=== PATIENT | female | born 1955 | race African-American/Black ===

== ENCOUNTER 2018-01-11 18:10 | Inpatient (IN) | payer OTHER ==
[~2018-01-11] VITALS: Ht 163.8 cm; Wt 127.0 kg
[2018-01-11] MEDS ORDERED: ASPIRIN 81 MG CHEW TAB PO ONE (18:30)
[2018-01-11 19:10] LABS: INR 1.3; PROTHROMBIN TIME 15.2 seconds (11.9-14.5)
[2018-01-11 19:11] LABS: PARTIAL THROMBOPLASTIN TIME 32.2 seconds (23.8-35.5)
[2018-01-11 19:19] LABS: BASOPHILS % 0.4 % (0.0-1.0); EOSINOPHILS # (AUTO) 0.6 (0.0-0.4); EOSINOPHILS % 5.4 % (0.0-6.0); HEMATOCRIT 40.6 % (34.2-44.1); HEMOGLOBIN 12.8 g/dL (12.0-16.0); LYMPHOCYTES # (AUTO) 1.7 (1.0-3.2); LYMPHOCYTES % 16.5 % (18.0-39.1); MEAN CORPUSCULAR HGB CONC 31.5 g/dL (31-35); MEAN CORPUSCULAR VOLUME 95.3 fL (81-99); MONOCYTES # (AUTO) 0.8 (0.2-0.8); MONOCYTES % 7.7 % (4.4-11.3); NEUTROPHILS # (AUTO) 7.4 (2.1-6.9); NEUTROPHILS % 69.7 % (38.7-80.0); PLATELET COUNT 261 x10e3/uL (140-360); RED BLOOD COUNT 4.26 x10e6/uL (3.6-5.1); RED CELL DISTRIBUTION WIDTH 12.6 % (11.7-14.4)
[2018-01-11 19:23] LABS: ALBUMIN 3.1 g/dL (3.5-5.0); ALBUMIN/GLOBULIN RATIO 0.7 (0.8-2.0); ANION GAP 12.5 mmol/L (8-16); CALCIUM 9.2 mg/dL (8.4-10.2); CREATININE, SERUM 1.49 mg/dL (0.57-1.11); POTASSIUM 3.5 mmol/L (3.5-5.1)
--- NOTE | 2018-01-11 19:26 | Diagnostic Imaging Report ---
EXAMINATION: CHEST 2 VIEWS INDICATION: CHF exacerbation and respiratory infection COMPARISON: None FINDINGS: PA and lateral views TUBES and LINES: None. LUNGS: Lungs are well inflated. Pulmonary vascular markings are prominent and indistinct. The right and left main pulmonary arteries are enlarged suggestive of pulmonary artery hypertension. Linear airspace opacity in the lower lobe is seen only on lateral image. This may represent atelectasis or infiltrate. PLEURA: No pleural effusion or pneumothorax. HEART AND MEDIASTINUM: The heart is enlarged. There are scattered calcifications in the aorta. BONES AND SOFT TISSUES: No focal osseous lesions. Soft tissues are unremarkable. UPPER ABDOMEN: No free air under the diaphragm. IMPRESSION: Cardiomegaly and pulmonary basilar congestion. A component of pulmonary artery hypertension is suspected. Small focus of lower lobe atelectasis or infiltrate. Signed by: Dr. Jessica Bradford MD on 01/11/2018 7:22 PM
[2018-01-11 19:31] LABS: CREATINE KINASE MB 1.3 ng/mL (0-5.0)
[2018-01-11 20:03] LABS: BILIRUBIN,URINE NEGATIVE (NEGATIVE); CLARITY,URINE HAZY (CLEAR); COLOR,URINE YELLOW (YELLOW); KETONES,URINE NEGATIVE (NEGATIVE); LEUKOCYTE ESTERASE ,URINE TRACE (NEGATIVE); NITRITE,URINE NEGATIVE (NEGATIVE); PROTEIN,URINE DIPSTICK 2+ (NEGATIVE); URINE UROBILINOGEN 0.2 mg/dL (0.2 - 1)
[2018-01-11 20:10] LABS: BACTERIA,URINE MANY /HPF; EPITHELIAL CELLS,URINE MANY /LPF; TRANSITIONAL EPI CELLS,URINE FEW
[2018-01-11] MEDS ORDERED: FUROSEMIDE INJ 10 MG/ML 4 ML VIAL IV NR (20:15)
[2018-01-11] MEDS ORDERED: DEXTROSE 50% SYRINGE 50 ML IV PRN ×2 (20:15)
[2018-01-11] MEDS ORDERED: SODIUM CHLORIDE FLUSH 10 ML SYR INJ PRN (20:15)
[2018-01-11 20:25] LABS: ABG PCO2 42 mmHg (41-51); ABG PH 7.47 (7.31-7.41); ABG PO2 61 mmHg (80-105)
[2018-01-11 20:26] LABS: ABG HCO3 30 mmol/L (23-28)
[2018-01-11] MEDS ORDERED: INSULIN REGULAR, HUMAN 100 UNIT/1 ML 3ML VIAL SQ SCH (21:00)
[2018-01-11] MEDS: INSULIN REGULAR, HUMAN 100 UNIT/1 ML 3ML VIAL SQ SCH (21:00)
[2018-01-11 21:15] VITALS: BP 139/63
[2018-01-11 21:30] VITALS: BP 139/63
[2018-01-11] MEDS: ALBUTEROL/IPRATROPIUM 3 ML NEB NEB SCH (23:15)
[2018-01-12] VITALS (9 sets, daily range): BP systolic 134–181; BP diastolic 61–86
[2018-01-12] MEDS ORDERED: ATORVASTATIN CA20 MG PO (00:49)
[2018-01-12] MEDS ORDERED: GLIMEPIRIDE2 MG PO (00:49)
[2018-01-12] MEDS ORDERED: ASPIRIN EC81 MG PO (00:49)
[2018-01-12] MEDS ORDERED: DEMADEX10 MG PO (00:49)
[2018-01-12] MEDS ORDERED: METFORMIN HCL500 MG PO (00:49)
[2018-01-12] MEDS ORDERED: HYDRALAZINE HCL25 MG PO (00:49)
[2018-01-12] MEDS ORDERED: LISINOPRIL10 MG PO (00:49)
[2018-01-12] MEDS ORDERED: PROCARDIA XL30 MG PO (00:49)
[2018-01-12 06:26] LABS: CREATINE KINASE MB 1.3 ng/mL (0-5.0)
[2018-01-12] MEDS: INSULIN REGULAR, HUMAN 100 UNIT/1 ML 3ML VIAL SQ SCH ×4 (07:30→20:37)
[2018-01-12] MEDS: ALBUTEROL/IPRATROPIUM 3 ML NEB NEB SCH (07:33)
[2018-01-12] MEDS ORDERED: FUROSEMIDE INJ 10 MG/ML 4 ML VIAL IV SCH (09:00)
[2018-01-12 10:53] LABS: ANION GAP 13.4 mmol/L (8-16); CALCIUM 8.9 mg/dL (8.4-10.2); CREATININE, SERUM 1.39 mg/dL (0.57-1.11); MAGNESIUM 1.7 MG/DL (1.3-2.1); POTASSIUM 3.4 mmol/L (3.5-5.1)
[2018-01-12] MEDS ORDERED: POTASSIUM CHLORIDE 20 MEQ TAB CR PO STA (11:01)
[2018-01-12] MEDS ORDERED: FUROSEMIDE INJ 10 MG/ML 4 ML VIAL IV ONE (11:15)
[2018-01-12] MEDS: ALBUTEROL/IPRATROPIUM 3 ML NEB NEB PRN ×2 (12:09→19:30)
[2018-01-12] MEDS: AZITHROMYCIN 250 MG TAB PO SCH (12:26)
--- NOTE | 2018-01-12 13:35 | Consultation ---
DATE OF CONSULTATION: January 12, 2018 CARDIAC CONSULTATION REASON FOR THE CONSULTATION: Abnormal EKG, shortness of breath, chest pain. HISTORY: This is a very nice 62-year-old lady who is known with multiple medical health problems namely diabetes mellitus, hypertension, hyperlipidemia, kidney stone, mild chronic renal insufficiency, cholecystectomy, and hysterectomy. Patient works in [employer]. She is doing well. She is relatively active. She needed to see her doctor with 5 days' duration of sore throat, hoarse voice, cough with secretion and cough. She is having chest tightness and pressure. There is probably a little bit of component of pleuritic chest pain. Her EKG was abnormal and "her chest x-ray in [facility] showed congestive heart failure." She was advised to come here to be seen. Cardiac consultation is obtained. I talked to the patient, whom she denied categorically to have angina. Her symptoms are of 5 days' duration as described above. Cardiac mazariegos, she was in [place] 2 years ago. She had abnormal stress test with subsequent cardiac catheterization and "I do not have any clogged artery". Her baseline symptoms are class III shortness of breath on exertion and easy fatigability, "I run out of gas." She denied having any angina. She does have sleep apnea. She is followed in [facility] and she is supposed to see a collision worker, but "I do not have any heart disease." REVIEW OF SYSTEMS CARDIAC: As per above. PULMONARY: As per above. No hemoptysis. No recent travel. No leg swelling. No symptoms of deep venous thrombosis. GI: Occasional bloating and indigestion. : No hematuria. No dysuria. MUSCULOSKELETAL: Back pain. NEUROLOGICAL: No seizure activity. No loss of control of the body, etc. SOCIAL HISTORY: She is . She is nonsmoker. She is non-alcohol drinker. She works in [employer]. HOME MEDICATIONS: Include; 1. Lipitor 20 mg a day. 2. Hydralazine 25 mg t.i.d. 3. Lisinopril 10 mg a day. 4. Demodex 20 mg a day. 5. Amaryl 4 mg a day. 6. Metformin 500 mg twice a day. PAST MEDICAL HISTORY 1. Diabetes mellitus. 2. Hypertension. 3. Hyperlipidemia. 4. Kidney stone. 5. Cholecystectomy. 6. Hysterectomy. 7. Obesity. 8. Cardiac catheterization 2 years ago with no coronary artery disease. FAMILY HISTORY: Patient is adopted. She does have 2 healthy sons. PHYSICAL EXAMINATION VITAL SIGNS: Height of 5 feet 4 inches, weight of 189 pounds. Blood pressure 150/60, heart rate of 70, respiratory rate of 18. HEENT: Remarkable for hoarse voice. NECK: No elevation of jugular venous pulsation. Short neck. No thyromegaly. No lymphadenopathy. CHEST: Decreased lung expansion. HEART: PMI 5th left intercostal space. Normal 1st and 2nd heart sound. ABDOMEN: Soft. Obese. EXTREMITIES: No cyanosis. No clubbing. No edema. No signs of deep venous thrombosis. NEUROLOGIC: Awake, alert, and oriented. No motor deficits. LABORATORY DATA: Sodium of 139, potassium 3.5, BUN of 19, creatinine of 1.5. White blood cell count of 10.5, hemoglobin 12.8, hematocrit 40%, and platelet count of 161,000. EKG showing lateral T-wave changes. Chest x-ray showing prominent pulmonary arteries suggestive of possible pulmonary hypertension. BNP of only 461, repeat BNP of 342. IMPRESSION AND PLAN 1. Admission with cold-like illness and upper respiratory tract infection. 2. Shortness of breath, multifactorial. 3. Diabetes mellitus. 4. Hypertension. 5. Obesity. 6. Abnormal electrocardiogram. 7. Catheterization 2 years ago showed no coronary artery disease. 8. Chronic renal insufficiency, stage 3. Cardiac-mazariegos, we discussed diagnosis. We discussed the findings. Patient is not eager to have any cardiac workup as cardiac cath was normal 2 years ago and her stress test "will be abnormal". At this time point, I would concur with medical therapy. Patient seems to be on appropriate medication. We will review her echocardiogram done . Her serial cardiac enzymes are negative. Will follow patient's progression with you, and I would like to thank you for your kind referral. Job#: [id number] LOLA
--- NOTE | 2018-01-12 14:42 | Diagnostic Imaging Report ---
Examination: Single AP view of the chest. COMPARISON: 01/11/2018 INDICATION: Pulmonary edema DISCUSSION: Stable enlargement of the cardiac silhouette with unchanged prominence of the pulmonary interstitium when accounting for differences in technique. No new consolidation. No acute osseous abnormality. IMPRESSION: Stable cardiomegaly and interstitial edema relative to 01/11/2018. Signed by: Dr. Martin Coleman M.D. on 01/12/2018 2:39 PM
[2018-01-12] MEDS: NIFEDIPINE CR 30 MG TAB PO SCH (16:53)
[2018-01-12] MEDS: METFORMIN HCL 500 MG TAB PO SCH (16:54)
[2018-01-12] MEDS: ENOXAPARIN SOD INJ 40 MG/0.4 ML SYR SC SCH (16:54)
[2018-01-12] MEDS: LISINOPRIL 20 MG TAB PO SCH (16:54)
[2018-01-12] MEDS: HYDRALAZINE HCL 25 MG TAB PO SCH (20:37)
[2018-01-12] MEDS: ATORVASTATIN 20 MG TAB PO SCH (20:37)
[2018-01-12] MEDS ORDERED: MELATONIN 3 MG TAB PO PRN (21:00)
[2018-01-13] VITALS (7 sets, daily range): BP systolic 131–157; BP diastolic 60–72
[2018-01-13] MEDS ORDERED: MELATONIN3 MG PO (01:05)
[2018-01-13 05:53] LABS: BASOPHILS # (AUTO) 0.1 (0.0-0.1); BASOPHILS % 0.6 % (0.0-1.0); EOSINOPHILS # (AUTO) 0.7 (0.0-0.4); EOSINOPHILS % 7.9 % (0.0-6.0); HEMATOCRIT 40.2 % (34.2-44.1); HEMOGLOBIN 12.5 g/dL (12.0-16.0); LYMPHOCYTES # (AUTO) 1.9 (1.0-3.2); LYMPHOCYTES % 20.8 % (18.0-39.1); MEAN CORPUSCULAR HEMOGLOBIN 29.4 pg (28-32); MEAN CORPUSCULAR HGB CONC 31.1 g/dL (31-35); MEAN CORPUSCULAR VOLUME 94.6 fL (81-99); MONOCYTES # (AUTO) 0.9 (0.2-0.8); MONOCYTES % 9.6 % (4.4-11.3); NEUTROPHILS # (AUTO) 5.6 (2.1-6.9); NEUTROPHILS % 60.8 % (38.7-80.0); PLATELET COUNT 269 x10e3/uL (140-360); RED BLOOD COUNT 4.25 x10e6/uL (3.6-5.1); RED CELL DISTRIBUTION WIDTH 12.9 % (11.7-14.4)
[2018-01-13 06:15] LABS: ANION GAP 15.8 mmol/L (8-16); CALCIUM 8.7 mg/dL (8.4-10.2); CREATININE, SERUM 1.27 mg/dL (0.57-1.11); MAGNESIUM 1.6 MG/DL (1.3-2.1); POTASSIUM 3.8 mmol/L (3.5-5.1)
--- NOTE | 2018-01-13 06:22 | Diagnostic Imaging Report ---
EXAMINATION: CHEST SINGLE (PORTABLE) INDICATION: Pulmonary edema COMPARISON: 01/12/2018 FINDINGS: TUBES and LINES: None. LUNGS: Lungs are not well inflated. There is persistent perihilar interstitial opacities, consistent with interstitial edema. PLEURA: No pleural effusion or pneumothorax. HEART AND MEDIASTINUM: Cardiac size is moderately enlarged. BONES AND SOFT TISSUES: No acute osseous lesion. Soft tissues are unremarkable. UPPER ABDOMEN: No free air under the diaphragm. IMPRESSION: Stable cardiogenic pulmonary edema Signed by: Dr. Maximus Mcgill M.D. on 01/13/2018 6:19 AM
[2018-01-13] MEDS: INSULIN REGULAR, HUMAN 100 UNIT/1 ML 3ML VIAL SQ SCH ×4 (07:30→20:34)
[2018-01-13] MEDS: HYDRALAZINE HCL 25 MG TAB PO SCH ×3 (08:52→20:49)
[2018-01-13] MEDS: METFORMIN HCL 500 MG TAB PO SCH ×2 (08:52→17:23)
[2018-01-13] MEDS: LISINOPRIL 20 MG TAB PO SCH (08:53)
[2018-01-13] MEDS: AZITHROMYCIN 250 MG TAB PO SCH (08:53)
[2018-01-13] MEDS: NIFEDIPINE CR 30 MG TAB PO SCH (08:53)
[2018-01-13] MEDS ORDERED: GLIMEPIRIDE 2 MG TAB PO SCH (09:00)
[2018-01-13] MEDS ORDERED: LISINOPRIL 10 MG TAB PO SCH (09:00)
[2018-01-13] MEDS ORDERED: FUROSEMIDE INJ 10 MG/ML 4 ML VIAL IV ONE (10:15)
[2018-01-13] MEDS: CEPACOL SORE THROAT LOZENGES PO PRN (11:42)
[2018-01-13] MEDS: CARVEDILOL 12.5 MG TAB PO SCH ×2 (12:15→17:23)
[2018-01-13] MEDS ORDERED: COREG12.5 MG PO (12:16)
[2018-01-13] MEDS ORDERED: METOLAZONE 5 MG TAB PO NR (12:45)
[2018-01-13] MEDS ORDERED: LOPERAMIDE HCL 2 MG CAP PO PRN (15:15)
[2018-01-13] MEDS ORDERED: FUROSEMIDE INJ 10 MG/ML 4 ML VIAL IV NR (17:10)
[2018-01-13] MEDS: ENOXAPARIN SOD INJ 40 MG/0.4 ML SYR SC SCH (17:23)
[2018-01-13] MEDS: ALBUTEROL/IPRATROPIUM 3 ML NEB NEB PRN (19:15)
[2018-01-13] MEDS: ATORVASTATIN 20 MG TAB PO SCH (20:49)
[2018-01-14] VITALS (7 sets, daily range): BP systolic 133–164; BP diastolic 61–77
[2018-01-14] MEDS: BENZONATATE 100 MG CAP PO PRN ×2 (00:01→21:30)
[2018-01-14 06:13] LABS: BASOPHILS # (AUTO) 0.1 (0.0-0.1); BASOPHILS % 0.7 % (0.0-1.0); EOSINOPHILS # (AUTO) 0.7 (0.0-0.4); EOSINOPHILS % 7.8 % (0.0-6.0); HEMATOCRIT 41.5 % (34.2-44.1); LYMPHOCYTES # (AUTO) 1.9 (1.0-3.2); LYMPHOCYTES % 22.9 % (18.0-39.1); MEAN CORPUSCULAR HEMOGLOBIN 29.5 pg (28-32); MEAN CORPUSCULAR HGB CONC 31.3 g/dL (31-35); MEAN CORPUSCULAR VOLUME 94.3 fL (81-99); MONOCYTES # (AUTO) 0.7 (0.2-0.8); MONOCYTES % 8.4 % (4.4-11.3); PLATELET COUNT 302 x10e3/uL (140-360); RED CELL DISTRIBUTION WIDTH 12.7 % (11.7-14.4)
--- NOTE | 2018-01-14 06:33 | Diagnostic Imaging Report ---
EXAMINATION: CHEST SINGLE (PORTABLE) INDICATION: Pulmonary edema COMPARISON: 01/13/2018 FINDINGS: PA and lateral views TUBES and LINES: None. LUNGS: Lungs are not well inflated. There is mild prominence of the central pulmonary vasculature, consistent with pulmonary venous congestion. Bilateral interlobular septi thickening is decreased. PLEURA: No pleural effusion or pneumothorax. HEART AND MEDIASTINUM: Cardiac size is mildly enlarged. BONES AND SOFT TISSUES: No focal osseous lesions. Soft tissues are unremarkable. UPPER ABDOMEN: No free air under the diaphragm. IMPRESSION: Interval decrease in cardiogenic pulmonary congestion and edema. Signed by: Dr. Maximus Mcgill M.D. on 01/14/2018 6:29 AM
[2018-01-14 06:41] LABS: ALBUMIN/GLOBULIN RATIO 0.7 (0.8-2.0); ANION GAP 14.7 mmol/L (8-16); CALCIUM 9.2 mg/dL (8.4-10.2); CREATININE, SERUM 1.49 mg/dL (0.57-1.11); POTASSIUM 3.7 mmol/L (3.5-5.1)
[2018-01-14] MEDS: INSULIN REGULAR, HUMAN 100 UNIT/1 ML 3ML VIAL SQ SCH ×4 (07:30→21:00)
[2018-01-14] MEDS: GLIMEPIRIDE 2 MG TAB PO SCH (08:51)
[2018-01-14] MEDS: METFORMIN HCL 500 MG TAB PO SCH ×2 (08:51→17:00)
[2018-01-14] MEDS: HYDRALAZINE HCL 25 MG TAB PO SCH ×3 (08:52→21:30)
[2018-01-14] MEDS: CARVEDILOL 12.5 MG TAB PO SCH ×2 (08:52→17:00)
[2018-01-14] MEDS: NIFEDIPINE CR 30 MG TAB PO SCH (08:52)
[2018-01-14] MEDS: LISINOPRIL 20 MG TAB PO SCH (08:52)
[2018-01-14] MEDS: AZITHROMYCIN 250 MG TAB PO SCH (08:52)
[2018-01-14] MEDS ORDERED: FLUCONAZOLE 200 MG/100 ML 100 ML IV SCH (16:00)
[2018-01-14] MEDS: ENOXAPARIN SOD INJ 40 MG/0.4 ML SYR SC SCH (18:11)
[2018-01-14] MEDS ORDERED: POTASSIUM CHLORIDE 20 MEQ TAB CR PO NR (20:00)
[2018-01-14] MEDS ORDERED: FUROSEMIDE INJ 10 MG/ML 4 ML VIAL IV NR (20:00)
[2018-01-14] MEDS: CEFTRIAXONE SOD 1 GM VIAL IV SCH (21:29)
[2018-01-14] MEDS: ATORVASTATIN 20 MG TAB PO SCH (21:30)
[2018-01-14] MEDS: CEPACOL SORE THROAT LOZENGES PO PRN (21:31)
--- NOTE | 2018-01-14 21:51 | Progress Note ---
DATE: January 14, 2018 INTERNAL MEDICINE PROGRESS NOTE Coverage for Dr. Manpreet Frederick. SUBJECTIVE: Ms. Varela was seen and examined at bedside. She is feeling about the same on previous days. 92% oxygen saturation on room air FiO2. Chest x-ray was improving in overload pattern. She was moving around independently. She is eating fair amount, although she has early satiety. One bowel movement. REVIEW OF SYSTEMS: No headaches, no rash. OBJECTIVE VITALS: Afebrile. Vital signs noted per electronic record. GENERAL: In no acute distress, alert and calm. HEENT: Normocephalic and atraumatic. NECK: Supple. Throat midline. LUNGS: Bilateral air entry, few decreased breath sounds at bases, rare rhonchi. CARDIOVASCULAR: S1 and S2. No murmurs, rubs, or gallops. ABDOMEN: Soft and nontender. EXTREMITIES: No clubbing. No cyanosis. There is 1+ edema to legs. INTEGUMENT: No rash. No purpura. LABS: Potassium 3.7, 24 BUN, 1.5 creatinine, glucose 148, total bilirubin 1.5. BNP was 259. Albumin was 3.0. IMPRESSION AND PLAN 1. Treated for fluid overload, diastolic heart failure. 2. Chronic kidney disease. 3. Treated for possible pneumonia. 4. Suggested recent upper respiratory infection, likely viral. 5. Diabetes. At this time, antibiotic for pneumonia. Continue diurese the patient. Repeat chest x-ray tomorrow. Repeat electrolytes tomorrow. Continue supportive care including cough medicine . We will follow along closely. Job#: [id number] VAS
[2018-01-14] MEDS: ALBUTEROL/IPRATROPIUM 3 ML NEB NEB PRN (22:05)
[2018-01-15] VITALS (7 sets, daily range): BP systolic 147–162; BP diastolic 67–77
[2018-01-15 06:26] LABS: ALBUMIN 3.1 g/dL (3.5-5.0); ALBUMIN/GLOBULIN RATIO 0.7 (0.8-2.0); ANION GAP 16.6 mmol/L (8-16); CALCIUM 9.5 mg/dL (8.4-10.2); CREATININE, SERUM 1.39 mg/dL (0.57-1.11); MAGNESIUM 1.8 MG/DL (1.3-2.1); PHOSPHORUS 3.8 MG/DL (2.3-4.7); POTASSIUM 3.6 mmol/L (3.5-5.1)
[2018-01-15] MEDS: INSULIN REGULAR, HUMAN 100 UNIT/1 ML 3ML VIAL SQ SCH ×4 (07:30→21:00)
--- NOTE | 2018-01-15 08:47 | Diagnostic Imaging Report ---
EXAMINATION: CHEST SINGLE (PORTABLE) INDICATION: \S\chf COMPARISON: Chest x-ray 01/14/2018. FINDINGS: AP view TUBES and LINES: None. LUNGS: Lungs are not well inflated. There is mild prominence of the central pulmonary vasculature, consistent with pulmonary venous congestion. Bilateral interlobular septi thickening is increased. PLEURA: No pleural effusion or pneumothorax. HEART AND MEDIASTINUM: Cardiac size is mildly enlarged. BONES AND SOFT TISSUES: No focal osseous lesions. Soft tissues are unremarkable. UPPER ABDOMEN: No free air under the diaphragm. IMPRESSION: Interval worsening in cardiogenic pulmonary congestion and edema. Signed by: Dr. Issa Combs M.D. on 01/15/2018 8:43 AM
[2018-01-15] MEDS: GLIMEPIRIDE 2 MG TAB PO SCH (09:37)
[2018-01-15] MEDS: LISINOPRIL 20 MG TAB PO SCH (09:37)
[2018-01-15] MEDS: CARVEDILOL 12.5 MG TAB PO SCH ×2 (09:37→18:10)
[2018-01-15] MEDS: NIFEDIPINE CR 30 MG TAB PO SCH (09:37)
[2018-01-15] MEDS: METFORMIN HCL 500 MG TAB PO SCH ×2 (09:37→18:10)
[2018-01-15] MEDS: AZITHROMYCIN 250 MG TAB PO SCH (09:37)
[2018-01-15] MEDS: FUROSEMIDE INJ 10 MG/ML 4 ML VIAL IV SCH (09:37)
[2018-01-15] MEDS: HYDRALAZINE HCL 25 MG TAB PO SCH ×3 (09:37→21:30)
[2018-01-15] MEDS ORDERED: POTASSIUM CHLORIDE 20 MEQ TAB CR PO ONE (15:45)
[2018-01-15] MEDS ORDERED: FUROSEMIDE INJ 10 MG/ML 4 ML VIAL IV ONE (16:15)
--- NOTE | 2018-01-15 16:25 | Progress Note ---
DATE: January 15, 2018 INTERNAL MEDICINE PROGRESS NOTE Coverage for Dr. Manpreet Frederick. SUBJECTIVE: Ms. Varela was seen and examined at bedside. She continues to have early dyspnea on exertion. She can only go one-third the way down the [place] before having to stop due to shortness of breath and this is much decreased compared to her baseline one-half block exercise tolerance. Blood pressure minimally elevated. A 95% oxygen saturation, room air FiO2. A 42.6 liters in, 1.5 liters out. She is eating her baseline amounts and she is having bowel movements. REVIEW OF SYSTEMS: No headaches, no nosebleed. OBJECTIVE VITALS: Afebrile. Vital signs noted per electronic record. GENERAL: In no acute distress, calm, just mildly pale. HEENT: Normocephalic and atraumatic. NECK: Supple. Throat midline. LUNGS: Bilateral air entry, few rhonchi that are small hardly hear, decreased air entry throughout. CARDIOVASCULAR: S1 and S2. No murmurs, rubs, or gallops. ABDOMEN: Soft and nontender. EXTREMITIES: No clubbing. No cyanosis. There is 1 to 2+ edema. INTEGUMENT: No rash. No purpura. LABS: BUN 24, creatinine 1.4, potassium 2.6, and bicarbonate 20. White count 8, hematocrit 42, and platelets 302. IMPRESSION AND PLAN 1. Acute pneumonitis, suggested viral. 2. Suggested upper respiratory tract infection. 3. Possible fluid overload, chest x-ray fluid overload pattern is present. 4. Chronic kidney disease. 5. Diabetes. 6. Early dyspnea. Continue to verbalize the patient again her condition. Repeat chest x-ray tomorrow. Today, . Patient will have an extra dose of diuretics today. We will order CT of chest without contrast to evaluate. We will follow along closely. Job#: [id number] JEREMI
--- NOTE | 2018-01-15 16:30 | Diagnostic Imaging Report ---
EXAM: CT Chest WITHOUT contrast INDICATION: \S\fluid overload, pneumonia COMPARISON: Chest x-ray 01/15/2018. TECHNIQUE: Chest was scanned utilizing a multidetector helical scanner from the lung apex through the level of the adrenal glands without administration of IV contrast. Absence of intravenous contrast decreases sensitivity for detection of lymphadenopathy and vascular pathology. Coronal and sagittal reformations were obtained. Routine protocol was performed. IV CONTRAST: None COMPLICATIONS: None RADIATION DOSE: Total DLP: 676.76 mGy*cm Estimated effective dose: (DLP x 0.014 x size factor) mSv CTDIvol has been reviewed. It is below the limits set by the Radiation Protocol Committee (RPC). FINDINGS: LINES/ TUBES: None. LUNGS AND AIRWAYS: There are mild diffuse ground glass opacities with peribronchial cuffing, consistent with fluid overload. Scarring/atelectasis in the dependent portion of the left upper lobe. More focal groundglass opacity with questionable tree-in-bud nodules in the right lower lobe. PLEURA: The pleural spaces are clear. HEART AND MEDIASTINUM: The thyroid gland is normal. No mediastinal, hilar or axillary lymphadenopathy. The heart is mildly enlarged. There is no pericardial effusion. Main pulmonary artery measures 3.8 cm and the aorta measures 3.7 cm. UPPER ABDOMEN: Cholecystectomy clips. Upper abdomen is otherwise unremarkable. BONES: The visualized bony thorax is within normal limits. SOFT TISSUES: Unremarkable. IMPRESSION: 1. Findings consistent with interstitial edema. 2. Small tree-in-bud nodules in the right lower lobe, worrisome for superimposed infection. 3. Mild cardiomegaly. Signed by: Dr. Issa Combs M.D. on 01/15/2018 4:26 PM
[2018-01-15] MEDS: ENOXAPARIN SOD INJ 40 MG/0.4 ML SYR SC SCH (18:10)
[2018-01-15] MEDS: CEFTRIAXONE SOD 1 GM VIAL IV SCH (21:30)
[2018-01-15] MEDS: ATORVASTATIN 20 MG TAB PO SCH (21:30)
[2018-01-15] MEDS: BENZONATATE 100 MG CAP PO PRN (21:31)
[2018-01-16] VITALS (8 sets, daily range): BP systolic 121–175; BP diastolic 60–84
[2018-01-16] MEDS: INSULIN REGULAR, HUMAN 100 UNIT/1 ML 3ML VIAL SQ SCH ×4 (07:30→21:00)
[2018-01-16] MEDS: HYDRALAZINE HCL 25 MG TAB PO SCH ×3 (09:15→22:00)
[2018-01-16] MEDS: CARVEDILOL 12.5 MG TAB PO SCH ×2 (09:15→17:52)
[2018-01-16] MEDS: LISINOPRIL 20 MG TAB PO SCH (09:15)
[2018-01-16] MEDS: METFORMIN HCL 500 MG TAB PO SCH ×2 (09:15→17:52)
[2018-01-16] MEDS: GLIMEPIRIDE 2 MG TAB PO SCH (09:15)
[2018-01-16] MEDS: NIFEDIPINE CR 30 MG TAB PO SCH (09:15)
[2018-01-16] MEDS: FUROSEMIDE INJ 10 MG/ML 4 ML VIAL IV SCH (09:15)
[2018-01-16] MEDS: AZITHROMYCIN 250 MG TAB PO SCH (09:15)
--- NOTE | 2018-01-16 15:10 | Progress Note ---
DATE: January 16, 2018 INTERNAL MEDICINE PROGRESS NOTE This is coverage for Dr. Frederick. SUBJECTIVE: Ms. Varela was seen and examined at bedside. She walked yesterday and had some dizziness when she was trying to go to the restroom. Nurses had to check on her. automotive brake technician states the patient has been walking in the room intermittently. Patient this morning was seen by me and she claims that she is very weak with very poor energy and she is nowhere close to where she should be in terms of physical capacity. She is starting to eat better now. REVIEW OF SYSTEMS: No headaches, no rash. OBJECTIVE VITAL SIGNS: Afebrile. Vital signs noted per electronic record. GENERAL: In no acute distress, alert and calm. HEENT: Normocephalic, atraumatic. NECK: Supple. Throat midline. LUNGS: Bilateral air entry, rate rhonchi, decreased breath sounds, decreased effort. CARDIOVASCULAR: S1 and S2. No murmurs, rubs, or gallops. ABDOMEN: Soft, nontender. EXTREMITIES: No clubbing. No cyanosis. There is no to 1+ leg edema. INTEGUMENT: No rash. No purpura. DIAGNOSTIC DATA: Chest CT yesterday showed findings consistent with very mild interstitial edema, main pulmonary artery 3.8 cm in size, small tree-in-bud nodules right lower lobe. IMPRESSION AND PLAN 1. Acute pneumonia. 2. Possible mild superimposed fluid overload. 3. Significant debility and weakness compared to baseline. 4. Creatinine elevation, chronic kidney disease. 5. Diabetes. We will ambulate the patient today further. We will try to encourage her and test her. If she remains weak, we may have to port her for rehabilitation rather than going home. We will get case management specialist to see her. In the meantime, continue antibiotics and continue some Lasix. I will give her an additional dose of Lasix and potassium today. Job#: [id number] ALISON
[2018-01-16] MEDS: ENOXAPARIN SOD INJ 40 MG/0.4 ML SYR SC SCH (17:52)
[2018-01-16] MEDS: CEFTRIAXONE SOD 1 GM VIAL IV SCH (22:00)
[2018-01-16] MEDS: ATORVASTATIN 20 MG TAB PO SCH (22:00)
[2018-01-16] MEDS: BENZONATATE 100 MG CAP PO PRN ×2 (22:10→22:45)
[2018-01-17] VITALS: BP 129/61
[2018-01-17 04:00] VITALS: BP 156/72
[2018-01-17 07:00] VITALS: BP 158/73
[2018-01-17] MEDS: INSULIN REGULAR, HUMAN 100 UNIT/1 ML 3ML VIAL SQ SCH ×2 (07:30→11:30)
[2018-01-17] MEDS: LISINOPRIL 20 MG TAB PO SCH (09:04)
[2018-01-17] MEDS: CARVEDILOL 12.5 MG TAB PO SCH (09:04)
[2018-01-17] MEDS: HYDRALAZINE HCL 25 MG TAB PO SCH (09:04)
[2018-01-17] MEDS: FUROSEMIDE INJ 10 MG/ML 4 ML VIAL IV SCH (09:04)
[2018-01-17] MEDS: METFORMIN HCL 500 MG TAB PO SCH (09:04)
[2018-01-17] MEDS: GLIMEPIRIDE 2 MG TAB PO SCH (09:04)
[2018-01-17] MEDS: NIFEDIPINE CR 30 MG TAB PO SCH (09:04)
[2018-01-17] MEDS: AZITHROMYCIN 250 MG TAB PO SCH (09:04)
[2018-01-17 09:58] VITALS: BP 158/73
[2018-01-17 10:41] LABS: ANION GAP 16.8 mmol/L (8-16); CALCIUM 9.6 mg/dL (8.4-10.2); CREATININE, SERUM 1.66 mg/dL (0.57-1.11); MAGNESIUM 1.8 MG/DL (1.3-2.1); POTASSIUM 3.8 mmol/L (3.5-5.1)
[2018-01-17 11:45] VITALS: BP 135/60
--- NOTE | 2018-01-17 13:59 | Discharge Summary ---
PRIMARY CARE DOCTOR: Dr. Ziggy Harkins with [facility]. FINAL DIAGNOSIS: Pulmonary edema. SECONDARY DIAGNOSES 1. Volume overload. 2. Chronic kidney disease stage 3 due to diabetes, stable. 3. Upper respiratory infection, slowly getting better. 4. Morbid obesity. 5. Diabetes. 6. Uncontrolled hypertension, better. CONSULTANTS: Dr. Griffith, cardiology. PROCEDURE/STUDIES PERFORMED: Chest CT which is consistent with interstitial edema with possible small infection. HISTORY: Per [facility] HOSPITAL COURSE: Patient was diuresed aggressively with IV Lasix. However, at this time, her creatinine is a little higher; therefore, I cannot diurese her anymore. On admission, her creatinine was 1.49. With diuresis, it came down to 1.27, today is 1.66. Therefore, we will go ahead and let her go home today. Her oxygen saturation on room air is 95% after exertion. Patient also received 5 days of azithromycin for empiric treatment of possible small pneumonia. Patient was instructed to go back on her oral diuretic at home and follow up with her primary care doctor. It took 32 minutes total to discharge this patient today. CONDITION ON DISCHARGE: Improved. DISCHARGE MEDICATIONS: Please see medication reconciliation form. CANDICE PATINO M.D. Job#: [id number] AKU cc: ZIGGY HARKINS MD MTDD
== END 2018-01-17 13:58 | disposition home or self-care (01) | DRG 291 ==
LOC: ER 18:10 → ERHOLD 20:54 → MED/SURG 21:10
PROVIDERS: ADMIT Internal Medicine; ATTEND Internal Medicine
DX: I13.0 Hypertensive heart and chronic kidney disease with heart failure and stage 1 through stage 4 chronic kidney disease, or unspecified chronic kidney disease (principal); I50.33 Acute on chronic diastolic (congestive) heart failure; J12.9 Viral pneumonia, unspecified; Z68.42 Body mass index [BMI] 45.0-49.9, adult; J98.4 Other disorders of lung; Z83.3 Family history of diabetes mellitus; Z82.49 Family history of ischemic heart disease and other diseases of the circulatory system; E78.5 Hyperlipidemia, unspecified; Z87.442 Personal history of urinary calculi; Z87.891 Personal history of nicotine dependence; E11.22 Type 2 diabetes mellitus with diabetic chronic kidney disease; N18.3 Chronic kidney disease, stage 3 (moderate); E66.01 Morbid (severe) obesity due to excess calories; J06.9 Acute upper respiratory infection, unspecified; Z90.49 Acquired absence of other specified parts of digestive tract; I42.2 Other hypertrophic cardiomyopathy
CPT/HCPCS: 36415; 36600; 71045; 71046; 71250; 80048; 80053; 81001; 82550; 82553; 82805; 82948; 83690; 83735; 83880; 84100; 84484; 85025; 85610; 85730; 87086; 87400; 93005; 93306; 94640; 99285; J0696; J1650; J1940

== ENCOUNTER 2018-05-30 12:12 | Inpatient (IN) | payer OTHER ==
[~2018-05-30] VITALS: Ht 162.6 cm; Wt 123.4 kg
[~2018-05-30 12:12] MED LIST: ASPIRIN EC81 MG PO; ATORVASTATIN CA20 MG PO; COREG12.5 MG PO; DEMADEX10 MG PO; GLIMEPIRIDE2 MG PO; HYDRALAZINE HCL25 MG PO; LISINOPRIL10 MG PO; MELATONIN3 MG PO; METFORMIN HCL500 MG PO; PROCARDIA XL30 MG PO
--- OUTSIDE RECORDS SUMMARY | 2018-05-30 12:14 | XMS REPORT | Clinical Summary ---
Author Author NATE GetGoingSt[facility] Medical CenterInSeT [facility] GetGoingNorth Canyon Medical CenterFlatiron AppsEvergreenHealth Address Unknown Phone Unavailable Care Team Providers Care Office 365 Consultant Name Role Phone Ziggy Morris MD PCP Unavailable Allergies Comments Active Allergy Reactions Severity Noted Date Hydrocodone-Acetaminophen Itching Low 11/07/2016 Medications End Date Status Medication Sig Dispensed Refills Start Date Active metFORMIN (GLUMETZA) 500 Take 1,000 mg 0 MG (MOD) 24 hr tablet by mouth 2 (two) times daily with breakfast and dinner . Active albuterol HFA (VENTOLIN Inhale 2 0 HFA) 90 mcg/actuation puffs by inhaler mouth via inhaler every 6 (six) hours as needed for Wheezing or Shortness of Breath. Active atorvastatin (LIPITOR) 20 Take 20 mg by 0 MG tablet mouth daily. Active budesonide-formoterol Inhale 2 0 (SYMBICORT) 160-4.5 puffs by mcg/actuation inhaler mouth via inhaler 2 (two) times daily. Active furosemide (LASIX) 40 MG Take 40 mg by 0 tablet mouth daily. Active glimepiride (AMARYL) 4 MG Take 4 mg by 0 tablet mouth every morning before breakfast. Active lactulose (CHRONULAC) 10 Take 20 g by 0 gram/15 mL (15 mL) mouth 3 solution (three) times daily as needed. Active lactulose (CHRONULAC) 20 Take 30 mLs 1000 mL 6 11/07/ gram/30 mL solution (20 g total) 7 by mouth 3 (three) times daily as needed. Active tamsulosin (FLOMAX) 0.4 Take 1 30 capsule 0 mg Cp24 24 hr capsule capsule (0.4 7 mg total) by mouth daily. 11/07/2017 atorvastatin (LIPITOR) 20 Take 1 tablet 90 tablet 1 MG tablet (20 mg total) 7 by mouth nightly. 11/07/2017 furosemide (LASIX) 40 MG Take 1 tablet 90 tablet 1 tablet (40 mg total) 7 by mouth daily. Active Problems Problem Noted Date Chronic diastolic heart failure 11/04/2016 Essential hypertension 11/04/2016 Uncontrolled type 2 diabetes mellitus with hyperglycemia 11/04/2016 Morbid obesity with BMI of 45.0-49.9, adult 11/04/2016 Restrictive lung disease 11/04/2016 Social History Date Tobacco Use Types Packs/Day Years Used Never Smoker Alcohol Use Drinks/Week oz/Week Comments No Sex Assigned at Date Recorded Not on file Industry Job Start Date Occupation Not on file Not on file Not on file Travel End Travel History Travel Start No recent travel history available. Last Filed Vital Signs Not on file Plan of Treatment Health Maintenance Due Date Last Done Comments INFLUENZA VACCINE 01/31/2018 Results Not on fileafter 05/29/2017 Insurance Payer Benefit Subscriber ID Type Phone Address Plan / Group [facility] HMO/POS CARE POS SELECT CHOICE Advance Directives For more information, please contact: [facility] [address] [place] [address] Date Inactivated Comments Code Status Date Activated 11/07/2016 12:24 PM Full Code 11/04/2016 2:17 PM This code status was determined by: Patient 08/25/2016 4:00 PM Full Code 08/21/2016 4:00 PM This code status was determined by: Patient
--- OUTSIDE RECORDS SUMMARY | 2018-05-30 12:15 | XMS REPORT ---
Author Author [facility] Address Unknown Phone Unavailable Care Team Providers Care Fabrication Engineer Name Role Phone Jordy PATINO Unavailable Unavailable DAVY MCGREGOR Unavailable Unavailable Anna Marie FINN Unavailable Unavailable SHEREEN MANDUJANO Unavailable Unavailable Problems This patient has no known problems. Allergies, Adverse Reactions, Alerts This patient has no known allergies or adverse reactions. Medications This patient has no known medications. Results Test Description Test Time Test Comments Text Results Atomic Results Result Comments CT CHEST WO 2018-01-15 15:58:00 [place] [address] Patient Name: CASEY BONNER MR #: [id number] : 1955 Age/Sex: 62/F Req #: [id number] Adm Physician: CANDICE PATINO MD Ordered by: FARRAH KHAN MD Report #: [id number] Location: MED/SURG Room/Bed: [facility] Procedure: [id number] CT/CT CHEST WO Exam Date: 01/15/18 Exam Time: 1558 REPORT STATUS: Signed EXAM: CT Chest WITHOUT contrast INDICATION: S fluid overload, pneumonia COMPARISON: Chest x-ray 01/15/2018. TECHNIQUE: Chest was scanned utilizing a multidetector helical scanner from the lung apex through the level of the adrenal glands without administration of IV contrast. Absence of intravenous contrast decreases sensitivity for detection of lymphadenopathy and vascular pathology. Coronal and sagittal reformations were obtained. Routine protocol was performed. IV CONTRAST: None COMPLICATIONS: None RADIATION DOSE: Total DLP: 676.76 mGy*cm Estimated effective dose: (DLP x 0.014 x size factor) mSv CTDIvol has been reviewed. It is below the limits set by the Radiation Protocol Committee (RPC). FINDINGS: LINES/ TUBES: None. LUNGS AND AIRWAYS: There are mild diffuse ground glass opacities with peribronchial cuffing, consistent with fluid overload. Scarring/atelectasis in the dependent portion of the left upper lobe. More focal groundglass opacity with questionable tree-in-bud nodules in the right lower lobe. PLEURA: The pleural spaces are clear. HEART AND MEDIASTINUM: The thyroid gland is normal. No mediastinal, hilar or axillary lymphadenopathy. The heart is mildly enlarged. There is no pericardial effusion. Main pulmonary artery measures 3.8 cm and the aorta measures 3.7 cm. UPPER ABDOMEN: Cholecystectomy clips. Upper abdomen is otherwise unremarkable. BONES: The visualized bony thorax is within normal limits. SOFT TISSUES: Unremarkable. IMPRESSION: 1. Findings consistent with interstitial edema. 2. Small tree-in-bud nodules in the right lower lobe, worrisome for superimposed infection. 3. Mild cardiomegaly. Signed by: Dr. Issa Adams M.D. on 01/15/2018 4:26 PM Dictated By: ISSA ADAMS MD 25 Transcribed By: ALBERT on 01/15/181625 COPY TO: FARRAH KHAN MD, [facility] CHEST SINGLE (PORTABLE) 2018-01-15 08:42:00 [place] [address] Patient Name: CASEY BONNER MR #: [id number] : 1955 Age/Sex: 62/F Req #: [id number] Adm Physician: CANDICE PATINO MD Ordered by: FARRAH KHAN MD Report #: [id number] Location: MED/SURG Room/Bed: [facility] Procedure: [id number] DX/CHEST SINGLE (PORTABLE) Exam Date: 01/15/18 Exam Time: 0625 REPORT STATUS: Signed EXAMINATION: CHEST SINGLE (PORTABLE) INDICATION: S chf COMPARISON: Chest x-ray 01/14/2018. FINDINGS: AP view TUBES and LINES: None. LUNGS: Lungs are not well inflated. There is mild prominence of the central pulmonary vasculature, consistent with pulmonary venous congestion. Bilateral interlobular septi thickening is increased. PLEURA: No pleural effusion or pneumothorax. HEART AND MEDIASTINUM: Cardiac size is mildly enlarged. BONES AND SOFT TISSUES: No focal osseous lesions. Soft tissues are unremarkable. UPPER ABDOMEN: No free air under the diaphragm. IMPRESSION: Interval worsening in cardiogenic pulmonary congestion and edema. Signed by: Dr. Issa Adams M.D. on 01/15/2018 8:43 AM Dictated By: ISSA ADAMS MD 2 Transcribed By: ALBERT on 01/15/18842 COPY TO: FARRAH KHAN MD, [facility] CHEST SINGLE (PORTABLE) 2018-01-14 06:28:00 [place] [address] Patient Name: CASEY BONNER MR #: [id number] : 1955 Age/Sex: 62/F Req #: [id number] Adm Physician: CANDICE PATINO MD Ordered by: CANDICE PATINO MD Report #: [id number] Location: MED/SURG Room/Bed: [facility] Procedure: DX/CHEST SINGLE (PORTABLE) Exam Date: 01/14/18 Exam Time: 0549 REPORT STATUS: Signed EXAMINATION: CHEST SINGLE (PORTABLE) INDICATION: Pulmonary edema COMPARISON: 01/13/2018 FINDINGS: PA and lateral views TUBES and LINES: None. LUNGS: Lungs are not well inflated. There is mild prominence of the central pulmonary vasculature, consistent with pulmonary venous congestion. Bilateral interlobular septi thickening is decreased. PLEURA: No pleural effusion or pneumothorax. HEART AND MEDIASTINUM: Cardiac size is mildly enlarged. BONES AND SOFT TISSUES: No focal osseous lesions. Soft tissues are unremarkable. UPPER ABDOMEN: No free air under the diaphragm. IMPRESSION: Interval decrease in cardiogenic pulmonary congestion and edema. Signed by: Dr. Maximus Mcgill M.D. on 01/14/2018 6:29 AM Dictated By: MAXIMUS MAURICE MD 8 Transcribed By: ALBERT on 01/14/18628 COPY TO: CANDICE PATINO MD CHEST SINGLE (PORTABLE) 2018-01-13 05:55:00 [place] [address] Patient Name: CASEY BONNER MR #: [id number] : 1955 Age/Sex: 62/F Req #: [id number] Adm Physician: CANDICE PATINO MD Ordered by: CANDICE PATNIO MD Report #: [id number] Location: MED/SURG Room/Bed: [facility] Procedure: DX/CHEST SINGLE (PORTABLE) Exam Date: 01/13/18 Exam Time: 0515 REPORT STATUS: Signed EXAMINATION: CHEST SINGLE (PORTABLE) INDICATION: Pulmonary edema COMPARISON: 01/12/2018 FINDINGS: TUBES and LINES: None. LUNGS: Lungs are not well inflated. There is persistent perihilar interstitial opacities, consistent with interstitial edema. PLEURA: No pleural effusion or pneumothorax. HEART AND MEDIASTINUM: Cardiac size is moderately enlarged. BONES AND SOFT TISSUES: No acute osseous lesion. Soft tissues are unremarkable. UPPER ABDOMEN: No free air under the diaphragm. IMPRESSION: Stable cardiogenic pulmonary edema Signed by: Dr. Maximus Mcgill M.D. on 01/13/2018 6:19 AM Dictated By: MAXIMUS MAURICE MD 8 Transcribed By: ALBERT on 01/13/18618 COPY TO: CANDICE PATINO MD CHEST SINGLE (PORTABLE) 2018-01-12 14:37:00 [place] [address] Patient Name: CASEY BONNER MR #: [id number] : 1955 Age/Sex: 62/F Req #: [id number] [facility] Physician: CANDICE PATINO MD Ordered by: CANDICE PATINO MD Report #: [id number] Location: MED/SURG Room/Bed: [facility] Procedure: [id number] DX/CHEST SINGLE (PORTABLE) Exam Date: 01/12/18 Exam Time: 1338 REPORT STATUS: Signed Examination: Single AP view of the chest. COMPARISON: 01/11/2018 INDICATION: Pulmonary edema DISCUSSION: Stable enlargement of the cardiac silhouette with unchanged prominence of the pulmonary interstitium when accounting for differences in technique. No new consolidation. No acute osseous abnormality. IMPRESSION: Stable cardiomegaly and interstitial edema relative to 01/11/2018. Signed by: Dr. Gustavo Perez M.D. on 01/12/2018 2:39 PM Dictated By: GUSTAVO PEREZ MD 143 Transcribed By: ALBERT on 01/12/18 143 COPY TO: CANDICE PATINO MD CHEST 2 VIEWS 2018-01-11 19:20:00 [place] [address] Patient Name: CASEY BONNER MR #: [id number] : 1955 Age/Sex: 62/F Req #: [id number] Adm Physician: Ordered by: BC JUSTICE VEGETABLE LOADER MACHINE OPERATOR Report #: [id number] Location: ER Room/Bed: Procedure: [id number] DX/CHEST 2 VIEWS Exam Date: 01/11/18 Exam Time: 1900 REPORT STATUS: Signed EXAMINATION: CHEST 2 VIEWS INDICATION: CHF exacerbation and respiratory infection COMPARISON: None FINDINGS: PA and lateral views TUBES and LINES: None. LUNGS: Lungs are well inflated. Pulmonary vascular markings are prominent and indistinct. The right and left main pulmonary arteries are enlarged suggestive of pulmonary artery hypertension. Linear airspace opacity in the lower lobe is seen only on lateral image. This may represent atelectasis or infiltrate. PLEURA: No pleural effusion or pneumothorax. HEART AND MEDIASTINUM: The heart is enlarged. There are scattered calcifications in the aorta. BONES AND SOFT TISSUES: No focal osseous lesions. Soft tissues are unremarkable. UPPER ABDOMEN: No free air under the diaphragm. IMPRESSION: Cardiomegaly and pulmonary basilar congestion. A component of pulmonary artery hypertension is suspected. Small focus of lower lobe atelectasis or infiltrate. Signed by: Dr. Tez Bradford MD on 01/11/2018 7:22 PM Dictated By: TEZ BRADFORD MD 21 Transcribed By: ALBERT on 01/11/181921 COPY TO: BC JUSTICE VEGETABLE LOADER MACHINE OPERATOR URINALYSIS W/ MICROSCOPIC 2016-11-21 19:45:00 COLOR (BEAKER) (test hrnw=375) Light Yellow CLARITY (BEAKER) (test riqu=608) Clear SPECIFIC GRAVITY UA (BEAKER) (test mzuy=830) 1.010 1.001-1.035 PH UA (BEAKER) (test puzh=506) 7.0 5.0-8.0 PROTEIN UA (BEAKER) (test kfvz=424) 70 mg/dL Negative GLUCOSE UA (BEAKER) (test mvrn=386) 100 mg/dL Negative KETONES UA (BEAKER) (test dlwa=727) Trace Negative BILIRUBIN UA (BEAKER) (test bowh=894) Negative Negative BLOOD UA (BEAKER) (test wknw=421) Negative Negative NITRITE UA (BEAKER) (test iwop=649) Negative Negative LEUKOCYTE ESTERASE UA (BEAKER) (test zicf=390) Negative Negative UROBILINOGEN UA (BEAKER) (test aqso=354) 0.2 mg/dL 0.2-1.0 RBC UA (BEAKER) (test lqkd=187) 0 /HPF WBC UA (BEAKER) (test pzuj=490) 1 /HPF MUCUS (BEAKER) (test xjed=6030) Rare SQUAMOUS EPITHELIAL (BEAKER) (test wxwj=996) < /HPF SOURCE(BEAKER) (test sdti=0388) Urine, Clean Catch CREATINE KINASE (CK), TOTAL AND [id number] 18:51:00* Test Item Value Reference Range Comments CREATINE KINASE TOTAL (BEAKER) (test xcnm=763) 133 U/L 29-200 CREATINE KINASE-MB (BEAKER) (test uiyu=672) 1.4 ng/mL 0.0-6.6 CREATINE KINASE-MB INDEX (BEAKER) (test xmyv=257) 1.1 % Effective 03/20/2014: CK-MB Reference Range ChangeNew: 0.0-6.6 Previous: 0.0- 4.9CK-MB Reference Range:<6.7 Normal6.7-10.0 Borderline>10.0 Abnormal TROPONIN [id number] 18:51:00* Test Item Value Reference Range Comments TROPONIN I (BEAKER) (test nuog=605) 0.02 ng/mL 0.00-0.03 Effective 03/20/2014: Reference Range ChangeNew: 0.00-0.03 Previous 0.00-0.15T roponin I (TnI) levels must be interpreted in the context of the presenting symp toms and the clinical findings. Elevated TnI levels indicate myocardial damage, but are not specific for ischemic heart disease. Elevated TnI levels are seen in patients with other cardiac conditions (including myocarditis and congestive he art failure), and slight TnI elevations occur in patients with other conditions, including sepsis, renal failure, acidosis, acute neurological disease, and pers istent tachyarrhythmia.[id number] 18:44:00* Test Item Value Reference Range Comments MAGNESIUM (BEAKER) (test lgwt=504) 1.6 mg/dL 1.6-2.6 HEPATIC FUNCTION [id number] 18:44:00* Test Item Value Reference Range Comments TOTAL PROTEIN (BEAKER) (test zefj=954) 8.1 gm/dL 6.0-8.3 ALBUMIN (BEAKER) (test ldqp=4434) 3.7 g/dL 3.5-5.0 BILIRUBIN TOTAL (BEAKER) (test tgar=038) 1.0 mg/dL 0.2-1.2 BILIRUBIN DIRECT (BEAKER) (test tvww=300) 0.4 mg/dL 0.1-0.5 ALKALINE PHOSPHATASE (BEAKER) (test jcjz=362) 63 U/L 40-150 AST (SGOT) (BEAKER) (test yona=989) 16 U/L 5-34 ALT (SGPT) (BEAKER) (test nthp=852) 12 U/L 6-55 COMPREHENSIVE METABOLIC [id number] 18:44:00* Test Item Value Reference Range Comments TOTAL PROTEIN (BEAKER) (test bcxj=203) 8.1 gm/dL 6.0-8.3 ALBUMIN (BEAKER) (test mgqr=4415) 3.7 g/dL 3.5-5.0 ALKALINE PHOSPHATASE (BEAKER) (test ohzf=476) 63 U/L 40-150 BILIRUBIN TOTAL (BEAKER) (test tlhi=763) 1.0 mg/dL 0.2-1.2 SODIUM (BEAKER) (test xwpv=874) 139 meq/L 136-145 POTASSIUM (BEAKER) (test phis=394) 4.5 meq/L 3.5-5.1 CHLORIDE (BEAKER) (test jzrz=769) 104 meq/L 98-107 CO2 (BEAKER) (test iwtu=584) 23 meq/L 22-29 BLOOD UREA NITROGEN (BEAKER) (test ssgf=794) 19 mg/dL 7-21 CREATININE (BEAKER) (test ltca=228) 1.54 mg/dL 0.57-1.25 GLUCOSE RANDOM (BEAKER) (test memv=519) 178 mg/dL 70-105 CALCIUM (BEAKER) (test ofbh=787) 9.1 mg/dL 8.4-10.2 AST (SGOT) (BEAKER) (test vpxc=525) 16 U/L 5-34 ALT (SGPT) (BEAKER) (test uipi=793) 12 U/L 6-55 EGFR (BEAKER) (test apxn=6890) 42 mL/min/1.73 sq m ESTIMATED GFR IS NOT ACCURATE CREATININE CLEARANCE IN PREDICTING GLOMERULAR FILTRATION RATE. ESTIMATED GFR IS NOT APPLICABLE FOR DIALYSIS PATIENTS. [id number] 18:44:00* Test Item Value Reference Range Comments AMYLASE (BEAKER) (test zkiz=121) 90 U/L 25-125 [id number] 18:44:00* Test Item Value Reference Range Comments LIPASE (BEAKER) (test gjxj=006) 43 U/L 8-78 CBC W/PLT COUNT & AUTO [id number] 18:38:00* Test Item Value Reference Range Comments WHITE BLOOD CELL COUNT (BEAKER) (test edfm=846) 10.1 K/ L 4.0-10.0 RED BLOOD CELL COUNT (BEAKER) (test yaif=972) 4.25 M/ L 4.00-5.00 HEMOGLOBIN (BEAKER) (test wdsg=876) 12.8 GM/DL 12.0-15.0 HEMATOCRIT (BEAKER) (test icdo=384) 40.5 % 36.0-45.0 MEAN CORPUSCULAR VOLUME (BEAKER) (test xbal=504) 95.2 fL 82.0-99.0 MEAN CORPUSCULAR HEMOGLOBIN (BEAKER) (test fmlo=178) 30.1 pg 27.0-33.0 MEAN CORPUSCULAR HEMOGLOBIN CONC (BEAKER) (test gnem=002) 31.6 GM/DL 32.0-36.0 RED CELL DISTRIBUTION WIDTH (BEAKER) (test lthe=768) 14.1 % 10.3-14.2 PLATELET COUNT (BEAKER) (test zonm=957) 255 K/CU MM 150-430 MEAN PLATELET VOLUME (BEAKER) (test ncgs=236) 8.4 fL 6.5-10.5 NUCLEATED RED BLOOD CELLS (BEAKER) (test zfnt=749) 0 /100 WBC 0-0 NEUTROPHILS RELATIVE PERCENT (BEAKER) (test ihme=605) 84 % LYMPHOCYTES RELATIVE PERCENT (BEAKER) (test ujoc=236) 12 % MONOCYTES RELATIVE PERCENT (BEAKER) (test zjzb=494) 4 % EOSINOPHILS RELATIVE PERCENT (BEAKER) (test ckrw=209) 1 % BASOPHILS RELATIVE PERCENT (BEAKER) (test jrwa=337) 0 % NEUTROPHILS ABSOLUTE COUNT (BEAKER) (test xbex=849) 8.46 K/ L 1.80-8.00 LYMPHOCYTES ABSOLUTE COUNT (BEAKER) (test ljok=935) 1.21 K/ L 1.48-4.50 MONOCYTES ABSOLUTE COUNT (BEAKER) (test jpcq=178) 0.36 K/ L 0.00-1.30 EOSINOPHILS ABSOLUTE COUNT (BEAKER) (test lbvj=955) 0.06 K/ L 0.00-0.50 BASOPHILS ABSOLUTE COUNT (BEAKER) (test qqmp=276) 0.03 K/ L 0.00-0.20 0.00T4, [id number] 19:19:00* Test Item Value Reference Range Comments FREE T4 (BEAKER) (test odpw=449) 0.99 ng/dL 0.70-1.48 POCT-GLUCOSE [id number] 12:36:00* Test Item Value Reference Range Comments POC-GLUCOSE METER (BEAKER) (test qkli=4690) 248 mg/dL 70-110 TESTED AT [facility] [address] [address] POCT-GLUCOSE [id number] 07:36:00* Test Item Value Reference Range Comments POC-GLUCOSE METER (BEAKER) (test fwfl=9345) 237 mg/dL 70-110 TESTED AT [facility] [address] [address] TSH/FREE T4 IF [id number] 07:34:00* Test Item Value Reference Range Comments THYROID STIMULATING HORMONE (BEAKER) (test ihka=647) 5.24 uIU/mL 0.35-4.94 [id number] 07:20:00* Test Item Value Reference Range Comments MAGNESIUM (BEAKER) (test xcco=033) 1.7 mg/dL 1.6-2.6 BASIC METABOLIC [id number] 07:20:00* Test Item Value Reference Range Comments SODIUM (BEAKER) (test ltjl=348) 135 meq/L 136-145 POTASSIUM (BEAKER) (test xxoz=521) 4.2 meq/L 3.5-5.1 CHLORIDE (BEAKER) (test pbbl=539) 103 meq/L 98-107 CO2 (BEAKER) (test kmlw=454) 25 meq/L 22-29 BLOOD UREA NITROGEN (BEAKER) (test pala=039) 20 mg/dL 7-21 CREATININE (BEAKER) (test lzem=187) 1.12 mg/dL 0.57-1.25 GLUCOSE RANDOM (BEAKER) (test vyve=938) 206 mg/dL 70-105 CALCIUM (BEAKER) (test jymf=170) 8.9 mg/dL 8.4-10.2 EGFR (BEAKER) (test yesi=3465) 60 mL/min/1.73 sq m ESTIMATED GFR IS NOT ACCURATE CREATININE CLEARANCE IN PREDICTING GLOMERULAR FILTRATION RATE. ESTIMATED GFR IS NOT APPLICABLE FOR DIALYSIS PATIENTS. LIPID [id number] 07:20:00* Test Item Value Reference Range Comments TRIGLYCERIDES (BEAKER) (test uwrc=874) 163 mg/dL CHOLESTEROL (BEAKER) (test isds=598) 199 mg/dL HDL CHOLESTEROL (BEAKER) (test rsax=041) 44 mg/dL LDL CHOLESTEROL CALCULATED (BEAKER) (test eeiy=993) 122 mg/dL Triglyceride Reference Range: Low Risk <150 Borderline 150-199 High Risk 200-499 Very High Risk >=500Cholesterol Reference Range: Low Risk <200 Borderline 200-239 High Risk >240HDL Cholesterol Reference Range: Low Risk >=60 High Risk <40LDL Cholesterol Reference Range: Optimal <100 Near Optimal 100-129 Borderline 130-159 High 160-189 Very High >=190 LIPASE 2016-11-07 07:20:00* Test Item Value Reference Range Comments LIPASE (BEAKER) (test rabe=478) 201 U/L 878 B-TYPE NATRIURETIC FACTOR (BNP)2016-11-07 07:17:00* Test Item Value Reference Range Comments B-TYPE NATRIURETIC PEPTIDE (BEAKER) (test ktyo=273) 204 pg/mL 0-100 POCT-GLUCOSE [id number] 22:16:00* Test Item Value Reference Range Comments POC-GLUCOSE METER (BEAKER) (test ilib=2012) 228 mg/dL 70-110 TESTED AT [address] [address] HEMOGLOBIN [id number] 21:17:00* Test Item Value Reference Range Comments HEMOGLOBIN A1C (BEAKER) (test otum=338) 9.0 % 4.3-6.1 POCT-GLUCOSE [id number] 16:46:00* Test Item Value Reference Range Comments POC-GLUCOSE METER (BEAKER) (test skcf=4632) 315 mg/dL 70-110 Notified SUKHDEV AMAYA/TESTED AT [address] [address] POCT-GLUCOSE [id number] 12:15:00* Test Item Value Reference Range Comments POC-GLUCOSE METER (BEAKER) (test vomz=7380) 249 mg/dL 70-110 TESTED AT [address] [address] POCT-GLUCOSE [id number] 08:18:00* Test Item Value Reference Range Comments POC-GLUCOSE METER (BEAKER) (test zoix=0900) 222 mg/dL 70-110 TESTED AT [address] [address] [id number] 05:35:00* Test Item Value Reference Range Comments LIPASE (BEAKER) (test vydg=696) 158 U/L 878 COMPREHENSIVE METABOLIC [id number] 05:35:00* Test Item Value Reference Range Comments TOTAL PROTEIN (BEAKER) (test wrnk=825) 7.8 gm/dL 6.0-8.3 ALBUMIN (BEAKER) (test vcbx=0797) 3.1 g/dL 3.5-5.0 ALKALINE PHOSPHATASE (BEAKER) (test zypx=303) 61 U/L 40-150 BILIRUBIN TOTAL (BEAKER) (test tbmt=592) 0.9 mg/dL 0.2-1.2 SODIUM (BEAKER) (test psbs=417) 136 meq/L 136-145 POTASSIUM (BEAKER) (test kteq=445) 4.1 meq/L 3.5-5.1 CHLORIDE (BEAKER) (test gykc=403) 101 meq/L 98-107 CO2 (BEAKER) (test jdoo=433) 27 meq/L 22-29 BLOOD UREA NITROGEN (BEAKER) (test oyar=292) 22 mg/dL 7-21 CREATININE (BEAKER) (test gmut=601) 1.36 mg/dL 0.57-1.25 GLUCOSE RANDOM (BEAKER) (test hwll=000) 192 mg/dL 70-105 CALCIUM (BEAKER) (test msqg=390) 8.7 mg/dL 8.4-10.2 AST (SGOT) (BEAKER) (test wmoe=805) 11 U/L 5-34 ALT (SGPT) (BEAKER) (test agvz=451) 8 U/L 6-55 EGFR (BEAKER) (test zpxc=3464) 48 mL/min/1.73 sq m ESTIMATED GFR IS NOT ACCURATE CREATININE CLEARANCE IN PREDICTING GLOMERULAR FILTRATION RATE. ESTIMATED GFR IS NOT APPLICABLE FOR DIALYSIS PATIENTS. POCT-GLUCOSE [id number] 23:12:00* Test Item Value Reference Range Comments POC-GLUCOSE METER (BEAKER) (test qdos=3881) 236 mg/dL 70-110 TESTED AT [facility] [address] [address] POCT-GLUCOSE [id number] 18:56:00* Test Item Value Reference Range Comments POC-GLUCOSE METER (BEAKER) (test cewz=1811) 197 mg/dL 70-110 TESTED AT [facility] [address] [address] POCT-GLUCOSE [id number] 12:01:00* Test Item Value Reference Range Comments POC-GLUCOSE METER (BEAKER) (test awhx=3094) 284 mg/dL 70-110 TESTED AT [facility] [address] [address] POCT-GLUCOSE [id number] 07:04:00* Test Item Value Reference Range Comments POC-GLUCOSE METER (BEAKER) (test ntra=3331) 274 mg/dL 70-110 TESTED AT [facility] [address] [address] [id number] 06:21:00* Test Item Value Reference Range Comments LIPASE (BEAKER) (test bflk=527) 154 U/L 8-78 BASIC METABOLIC [id number] 06:21:00* Test Item Value Reference Range Comments SODIUM (BEAKER) (test zriz=513) 134 meq/L 136-145 POTASSIUM (BEAKER) (test untk=665) 4.2 meq/L 3.5-5.1 CHLORIDE (BEAKER) (test ehqw=693) 99 meq/L 98-107 CO2 (BEAKER) (test noxu=816) 27 meq/L 22-29 BLOOD UREA NITROGEN (BEAKER) (test hjgs=030) 29 mg/dL 7-21 CREATININE (BEAKER) (test wspm=082) 1.62 mg/dL 0.57-1.25 GLUCOSE RANDOM (BEAKER) (test ffst=058) 323 mg/dL 70-105 CALCIUM (BEAKER) (test wpaa=425) 8.8 mg/dL 8.4-10.2 EGFR (BEAKER) (test lqvo=2819) 39 mL/min/1.73 sq m ESTIMATED GFR IS NOT ACCURATE CREATININE CLEARANCE IN PREDICTING GLOMERULAR FILTRATION RATE. ESTIMATED GFR IS NOT APPLICABLE FOR DIALYSIS PATIENTS. CBC W/PLT COUNT & AUTO [id number] 06:21:00* Test Item Value Reference Range Comments WHITE BLOOD CELL COUNT (BEAKER) (test hmiq=695) 6.9 K/ L 4.0-10.0 RED BLOOD CELL COUNT (BEAKER) (test fgej=301) 4.08 M/ L 4.00-5.00 HEMOGLOBIN (BEAKER) (test lwtq=171) 12.5 GM/DL 12.0-15.0 HEMATOCRIT (BEAKER) (test ihny=795) 39.0 % 36.0-45.0 MEAN CORPUSCULAR VOLUME (BEAKER) (test xtrg=568) 95.7 fL 82.0-99.0 MEAN CORPUSCULAR HEMOGLOBIN (BEAKER) (test ixaf=429) 30.7 pg 27.0-33.0 MEAN CORPUSCULAR HEMOGLOBIN CONC (BEAKER) (test wfgo=252) 32.1 GM/DL 32.0-36.0 RED CELL DISTRIBUTION WIDTH (BEAKER) (test amgv=964) 11.9 % 10.3-14.2 PLATELET COUNT (BEAKER) (test vidc=026) 276 K/CU MM 150-430 MEAN PLATELET VOLUME (BEAKER) (test zwhe=421) 8.0 fL 6.5-10.5 NUCLEATED RED BLOOD CELLS (BEAKER) (test mmnf=373) 0 /100 WBC 0-0 NEUTROPHILS RELATIVE PERCENT (BEAKER) (test ubtu=668) 46 % LYMPHOCYTES RELATIVE PERCENT (BEAKER) (test vdur=782) 37 % MONOCYTES RELATIVE PERCENT (BEAKER) (test huqn=716) 7 % EOSINOPHILS RELATIVE PERCENT (BEAKER) (test lrgd=829) 9 % BASOPHILS RELATIVE PERCENT (BEAKER) (test hkuz=060) 1 % NEUTROPHILS ABSOLUTE COUNT (BEAKER) (test ambh=705) 3.18 K/ L 1.80-8.00 LYMPHOCYTES ABSOLUTE COUNT (BEAKER) (test ehhy=539) 2.55 K/ L 1.48-4.50 MONOCYTES ABSOLUTE COUNT (BEAKER) (test xces=326) 0.50 K/ L 0.00-1.30 EOSINOPHILS ABSOLUTE COUNT (BEAKER) (test lbjl=603) 0.63 K/ L 0.00-0.50 BASOPHILS ABSOLUTE COUNT (BEAKER) (test wagj=187) 0.05 K/ L 0.00-0.20 0.00B-TYPE NATRIURETIC FACTOR (BNP)2016-11-05 06:05:00* Test Item Value Reference Range Comments B-TYPE NATRIURETIC PEPTIDE (BEAKER) (test vjun=930) 94 pg/mL 0-100 POCT-GLUCOSE [id number] 00:37:00* Test Item Value Reference Range Comments POC-GLUCOSE METER (BEAKER) (test obyr=7345) 232 mg/dL 70-110 TESTED AT [facility] [address] [id number] URINALYSIS W/ [id number] 20:12:00* Test Item Value Reference Range Comments COLOR (BEAKER) (test fmap=911) Yellow CLARITY (BEAKER) (test fbuw=216) Clear SPECIFIC GRAVITY UA (BEAKER) (test mpwx=707) 1.018 1.001-1.035 PH UA (BEAKER) (test nmek=419) 5.5 5.0-8.0 PROTEIN UA (BEAKER) (test srkv=213) 100 mg/dL Negative GLUCOSE UA (BEAKER) (test qipl=805) >1000 mg/dL Negative KETONES UA (BEAKER) (test zgsj=039) Negative Negative BILIRUBIN UA (BEAKER) (test pdms=928) Negative Negative BLOOD UA (BEAKER) (test rmjp=327) Negative Negative NITRITE UA (BEAKER) (test tuzk=709) Negative Negative LEUKOCYTE ESTERASE UA (BEAKER) (test faba=708) Negative Negative UROBILINOGEN UA (BEAKER) (test swhk=956) 0.2 mg/dL 0.2-1.0 RBC UA (BEAKER) (test xohm=168) < /HPF WBC UA (BEAKER) (test stoi=924) < /HPF BACTERIA (BEAKER) (test uzul=853) Occasional MUCUS (BEAKER) (test xryh=8177) Rare SQUAMOUS EPITHELIAL (BEAKER) (test nxvz=044) 1 /HPF SOURCE(BEAKER) (test spfq=5029) Urine, Clean Catch CREATINE KINASE (CK), TOTAL AND [id number] 15:58:00* Test Item Value Reference Range Comments CREATINE KINASE TOTAL (BEAKER) (test owsn=686) 90 U/L 29-200 CREATINE KINASE-MB (BEAKER) (test zpdo=882) 1.6 ng/mL 0.0-6.6 CREATINE KINASE-MB INDEX (BEAKER) (test ptin=474) 1.8 % Effective 03/20/2014: CK-MB Reference Range ChangeNew: 0.0-6.6 Previous: 0.0- 4.9CK-MB Reference Range:<6.7 Normal6.7-10.0 Borderline>10.0 Abnormal TROPONIN [id number] 15:58:00* Test Item Value Reference Range Comments TROPONIN I (BEAKER) (test gfjg=193) 0.02 ng/mL 0.00-0.03 Effective 03/20/2014: Reference Range ChangeNew: 0.00-0.03 Previous 0.00-0.15T roponin I (TnI) levels must be interpreted in the context of the presenting symp toms and the clinical findings. Elevated TnI levels indicate myocardial damage, but are not specific for ischemic heart disease. Elevated TnI levels are seen in patients with other cardiac conditions (including myocarditis and congestive he art failure), and slight TnI elevations occur in patients with other conditions, including sepsis, renal failure, acidosis, acute neurological disease, and pers istent tachyarrhythmia.[id number] 15:51:00* Test Item Value Reference Range Comments LIPASE (BEAKER) (test yoic=727) 225 U/L 8-78 [id number] 15:51:00* Test Item Value Reference Range Comments AMYLASE (BEAKER) (test vjsn=170) 106 U/L 25-125 BASIC METABOLIC [id number] 15:51:00* Test Item Value Reference Range Comments SODIUM (BEAKER) (test qnol=977) 134 meq/L 136-145 POTASSIUM (BEAKER) (test lfbk=594) 4.3 meq/L 3.5-5.1 CHLORIDE (BEAKER) (test rggi=344) 96 meq/L 98-107 CO2 (BEAKER) (test guff=833) 33 meq/L 22-29 BLOOD UREA NITROGEN (BEAKER) (test grkn=477) 35 mg/dL 7-21 CREATININE (BEAKER) (test lykj=503) 1.81 mg/dL 0.57-1.25 GLUCOSE RANDOM (BEAKER) (test nagl=645) 366 mg/dL 70-105 CALCIUM (BEAKER) (test ctkh=214) 9.5 mg/dL 8.4-10.2 EGFR (BEAKER) (test trft=7425) 34 mL/min/1.73 sq m ESTIMATED GFR IS NOT ACCURATE CREATININE CLEARANCE IN PREDICTING GLOMERULAR FILTRATION RATE. ESTIMATED GFR IS NOT APPLICABLE FOR DIALYSIS PATIENTS. HEPATIC FUNCTION [id number] 15:51:00* Test Item Value Reference Range Comments TOTAL PROTEIN (BEAKER) (test vctj=342) 8.5 gm/dL 6.0-8.3 ALBUMIN (BEAKER) (test yuqz=2456) 3.4 g/dL 3.5-5.0 BILIRUBIN TOTAL (BEAKER) (test cvaq=578) 0.5 mg/dL 0.2-1.2 BILIRUBIN DIRECT (BEAKER) (test dnpx=487) 0.2 mg/dL 0.1-0.5 ALKALINE PHOSPHATASE (BEAKER) (test ymfb=038) 66 U/L 40-150 AST (SGOT) (BEAKER) (test dnko=679) 13 U/L 5-34 ALT (SGPT) (BEAKER) (test ilyz=577) 11 U/L 6-55 [id number] 15:42:00* Test Item Value Reference Range Comments PROTIME (BEAKER) (test rvne=125) 14.3 seconds 11.7-14.7 INR (BEAKER) (test gydw=415) 1.1 <=5.9 PARTIAL THROMBOPLASTIN TIME (BEAKER) (test lavn=860) 30.0 seconds 22.5-36.0 RECOMMENDED COUMADIN/WARFARIN INR THERAPY RANGESSTANDARD DOSE: 2.0 - 3.0 Inclu rose: PROPHYLAXIS for venous thrombosis, systemic embolization; TREATMENT for aleyda ous thrombosis and/or pulmonary embolus.HIGH RISK: Target INR is 2.5-3.5 for pat ients with mechanical heart valves.CBC W/PLT COUNT & AUTO [id number] 15:41:00* Test Item Value Reference Range Comments WHITE BLOOD CELL COUNT (BEAKER) (test aqxg=309) 7.3 K/ L 4.0-10.0 RED BLOOD CELL COUNT (BEAKER) (test ojjn=141) 4.16 M/ L 4.00-5.00 HEMOGLOBIN (BEAKER) (test mkdc=853) 13.0 GM/DL 12.0-15.0 HEMATOCRIT (BEAKER) (test xhxu=756) 39.2 % 36.0-45.0 MEAN CORPUSCULAR VOLUME (BEAKER) (test riad=036) 94.3 fL 82.0-99.0 MEAN CORPUSCULAR HEMOGLOBIN (BEAKER) (test uawr=768) 31.2 pg 27.0-33.0 MEAN CORPUSCULAR HEMOGLOBIN CONC (BEAKER) (test ujij=933) 33.1 GM/DL 32.0-36.0 RED CELL DISTRIBUTION WIDTH (BEAKER) (test bjka=725) 13.3 % 10.3-14.2 PLATELET COUNT (BEAKER) (test qozw=744) 303 K/CU MM 150-430 MEAN PLATELET VOLUME (BEAKER) (test fpzs=344) 7.9 fL 6.5-10.5 NUCLEATED RED BLOOD CELLS (BEAKER) (test wtrg=683) 0 /100 WBC 0-0 NEUTROPHILS RELATIVE PERCENT (BEAKER) (test onbc=002) 51 % LYMPHOCYTES RELATIVE PERCENT (BEAKER) (test gpwp=703) 33 % MONOCYTES RELATIVE PERCENT (BEAKER) (test dcur=665) 6 % EOSINOPHILS RELATIVE PERCENT (BEAKER) (test iyki=423) 9 % BASOPHILS RELATIVE PERCENT (BEAKER) (test dbcn=787) 1 % NEUTROPHILS ABSOLUTE COUNT (BEAKER) (test cpeq=901) 3.73 K/ L 1.80-8.00 LYMPHOCYTES ABSOLUTE COUNT (BEAKER) (test zsby=608) 2.39 K/ L 1.48-4.50 MONOCYTES ABSOLUTE COUNT (BEAKER) (test neqg=505) 0.46 K/ L 0.00-1.30 EOSINOPHILS ABSOLUTE COUNT (BEAKER) (test nhac=301) 0.65 K/ L 0.00-0.50 BASOPHILS ABSOLUTE COUNT (BEAKER) (test vgim=505) 0.06 K/ L 0.00-0.20 0.00POCT-GLUCOSE [id number] 15:13:00* Test Item Value Reference Range Comments POC-GLUCOSE METER (BEAKER) (test mvwv=9008) 297 mg/dL 70-110 TESTED AT [address] [address] POCT-GLUCOSE [id number] 12:29:00* Test Item Value Reference Range Comments POC-GLUCOSE METER (BEAKER) (test rljr=1308) 261 mg/dL 70-110 TESTED AT [place] [id number] [facility] [address] POCT-GLUCOSE [id number] 08:14:00* Test Item Value Reference Range Comments POC-GLUCOSE METER (BEAKER) (test indm=3187) 221 mg/dL 70-110 TESTED AT [address] [address] BASIC METABOLIC [id number] 05:15:00* Test Item Value Reference Range Comments SODIUM (BEAKER) (test rhuz=937) 139 meq/L 136-145 POTASSIUM (BEAKER) (test oavj=819) 4.0 meq/L 3.5-5.1 CHLORIDE (BEAKER) (test wnds=812) 103 meq/L 98-107 CO2 (BEAKER) (test jtbz=359) 26 meq/L 22-29 BLOOD UREA NITROGEN (BEAKER) (test hdry=379) 27 mg/dL 7-21 CREATININE (BEAKER) (test xvxy=663) 1.43 mg/dL 0.57-1.25 GLUCOSE RANDOM (BEAKER) (test emgi=538) 221 mg/dL 70-105 CALCIUM (BEAKER) (test utju=564) 9.1 mg/dL 8.4-10.2 EGFR (BEAKER) (test tpoh=9826) 45 mL/min/1.73 sq m ESTIMATED GFR IS NOT ACCURATE CREATININE CLEARANCE IN PREDICTING GLOMERULAR FILTRATION RATE. ESTIMATED GFR IS NOT APPLICABLE FOR DIALYSIS PATIENTS. [id number] 04:50:00* Test Item Value Reference Range Comments PHOSPHORUS (BEAKER) (test gjmm=073) 3.9 mg/dL 2.3-4.7 [id number] 04:50:00* Test Item Value Reference Range Comments MAGNESIUM (BEAKER) (test gwcl=851) 2.1 mg/dL 1.6-2.6 B-TYPE NATRIURETIC FACTOR (BNP)2016-08-25 04:39:00* Test Item Value Reference Range Comments B-TYPE NATRIURETIC PEPTIDE (BEAKER) (test lfed=123) 119 pg/mL 0-100 CBC W/PLT COUNT & AUTO [id number] 04:32:00* Test Item Value Reference Range Comments WHITE BLOOD CELL COUNT (BEAKER) (test aucn=934) 6.4 K/ L 4.0-10.0 RED BLOOD CELL COUNT (BEAKER) (test wgch=094) 4.42 M/ L 4.00-5.00 HEMOGLOBIN (BEAKER) (test jeyx=132) 13.6 GM/DL 12.0-15.0 HEMATOCRIT (BEAKER) (test bugi=308) 42.4 % 36.0-45.0 MEAN CORPUSCULAR VOLUME (BEAKER) (test fwfo=403) 95.9 fL 82.0-99.0 MEAN CORPUSCULAR HEMOGLOBIN (BEAKER) (test mjju=644) 30.7 pg 27.0-33.0 MEAN CORPUSCULAR HEMOGLOBIN CONC (BEAKER) (test akbz=701) 32.0 GM/DL 32.0-36.0 RED CELL DISTRIBUTION WIDTH (BEAKER) (test xzoa=226) 12.3 % 10.3-14.2 PLATELET COUNT (BEAKER) (test sgjn=418) 235 K/CU MM 150-430 MEAN PLATELET VOLUME (BEAKER) (test kvkc=494) 8.7 fL 6.5-10.5 NUCLEATED RED BLOOD CELLS (BEAKER) (test fjie=328) 0 /100 WBC 0-0 NEUTROPHILS RELATIVE PERCENT (BEAKER) (test usoh=290) 47 % LYMPHOCYTES RELATIVE PERCENT (BEAKER) (test fdcs=522) 36 % MONOCYTES RELATIVE PERCENT (BEAKER) (test kqnj=445) 10 % EOSINOPHILS RELATIVE PERCENT (BEAKER) (test ijsh=260) 7 % BASOPHILS RELATIVE PERCENT (BEAKER) (test koxx=935) 1 % NEUTROPHILS ABSOLUTE COUNT (BEAKER) (test pfsl=933) 2.99 K/ L 1.80-8.00 LYMPHOCYTES ABSOLUTE COUNT (BEAKER) (test oexu=546) 2.28 K/ L 1.48-4.50 MONOCYTES ABSOLUTE COUNT (BEAKER) (test ytci=220) 0.61 K/ L 0.00-1.30 EOSINOPHILS ABSOLUTE COUNT (BEAKER) (test rwox=278) 0.47 K/ L 0.00-0.50 BASOPHILS ABSOLUTE COUNT (BEAKER) (test isqo=518) 0.04 K/ L 0.00-0.20 0.00POCT-GLUCOSE [id number] 22:04:00* Test Item Value Reference Range Comments POC-GLUCOSE METER (BEAKER) (test ewrb=5289) 216 mg/dL 70-110 TESTED AT [facility] [address] [facility] [address] POCT-GLUCOSE [id number] 17:18:00* Test Item Value Reference Range Comments POC-GLUCOSE METER (BEAKER) (test ktrd=8207) 185 mg/dL 70-110 TESTED AT [facility] [address] [facility] [address] POCT-GLUCOSE [id number] 12:21:00* Test Item Value Reference Range Comments POC-GLUCOSE METER (BEAKER) (test scnd=6702) 264 mg/dL 70-110 TESTED AT [facility] [address] [facility] [address] POCT-GLUCOSE [id number] 08:10:00* Test Item Value Reference Range Comments POC-GLUCOSE METER (BEAKER) (test tcyw=4985) 202 mg/dL 70-110 TESTED AT [facility] [address] [facility] [address] [id number] 05:28:00* Test Item Value Reference Range Comments PHOSPHORUS (BEAKER) (test nlvv=855) 4.3 mg/dL 2.3-4.7 [id number] 05:28:00* Test Item Value Reference Range Comments MAGNESIUM (BEAKER) (test bfbc=844) 2.2 mg/dL 1.6-2.6 BASIC METABOLIC [id number] 05:28:00* Test Item Value Reference Range Comments SODIUM (BEAKER) (test mdco=606) 138 meq/L 136-145 POTASSIUM (BEAKER) (test eaze=223) 4.0 meq/L 3.5-5.1 CHLORIDE (BEAKER) (test okks=681) 103 meq/L 98-107 CO2 (BEAKER) (test lfrq=134) 26 meq/L 22-29 BLOOD UREA NITROGEN (BEAKER) (test rdrv=757) 26 mg/dL 7-21 CREATININE (BEAKER) (test gfce=537) 1.49 mg/dL 0.57-1.25 GLUCOSE RANDOM (BEAKER) (test umlv=306) 203 mg/dL 70-105 CALCIUM (BEAKER) (test qpsk=803) 8.8 mg/dL 8.4-10.2 EGFR (BEAKER) (test kdjv=7420) 43 mL/min/1.73 sq m ESTIMATED GFR IS NOT ACCURATE CREATININE CLEARANCE IN PREDICTING GLOMERULAR FILTRATION RATE. ESTIMATED GFR IS NOT APPLICABLE FOR DIALYSIS PATIENTS. CREATINE KINASE (CK), TOTAL AND [id number] 05:28:00* Test Item Value Reference Range Comments CREATINE KINASE TOTAL (BEAKER) (test cyss=485) 68 U/L 29-200 CREATINE KINASE-MB (BEAKER) (test xufn=105) 0.8 ng/mL 0.0-6.6 CREATINE KINASE-MB INDEX (BEAKER) (test hdmf=562) 1.2 % Effective 03/20/2014: CK-MB Reference Range ChangeNew: 0.0-6.6 Previous: 0.0- 4.9CK-MB Reference Range:<6.7 Normal6.7-10.0 Borderline>10.0 Abnormal CREATINE KINASE (CK), TOTAL AND [id number] 05:27:00* Test Item Value Reference Range Comments CREATINE KINASE TOTAL (BEAKER) (test jivc=514) 74 U/L 29-200 CREATINE KINASE-MB (BEAKER) (test sixi=688) 0.8 ng/mL 0.0-6.6 CREATINE KINASE-MB INDEX (BEAKER) (test ofym=173) 1.1 % Effective 03/20/2014: CK-MB Reference Range ChangeNew: 0.0-6.6 Previous: 0.0- 4.9CK-MB Reference Range:<6.7 Normal6.7-10.0 Borderline>10.0 Abnormal CBC W/PLT COUNT & AUTO [id number] 04:43:00* Test Item Value Reference Range Comments WHITE BLOOD CELL COUNT (BEAKER) (test fssc=029) 5.8 K/ L 4.0-10.0 RED BLOOD CELL COUNT (BEAKER) (test qjtw=146) 4.47 M/ L 4.00-5.00 HEMOGLOBIN (BEAKER) (test fbip=322) 13.6 GM/DL 12.0-15.0 HEMATOCRIT (BEAKER) (test tkgs=632) 42.1 % 36.0-45.0 MEAN CORPUSCULAR VOLUME (BEAKER) (test lzrd=890) 94.2 fL 82.0-99.0 MEAN CORPUSCULAR HEMOGLOBIN (BEAKER) (test pvai=310) 30.4 pg 27.0-33.0 MEAN CORPUSCULAR HEMOGLOBIN CONC (BEAKER) (test vomd=129) 32.3 GM/DL 32.0-36.0 RED CELL DISTRIBUTION WIDTH (BEAKER) (test twyp=894) 13.2 % 10.3-14.2 PLATELET COUNT (BEAKER) (test asuu=580) 224 K/CU MM 150-430 MEAN PLATELET VOLUME (BEAKER) (test okgi=967) 8.8 fL 6.5-10.5 NUCLEATED RED BLOOD CELLS (BEAKER) (test rpcn=309) 0 /100 WBC 0-0 NEUTROPHILS RELATIVE PERCENT (BEAKER) (test uldu=989) 47 % LYMPHOCYTES RELATIVE PERCENT (BEAKER) (test byrk=671) 36 % MONOCYTES RELATIVE PERCENT (BEAKER) (test nhmt=091) 10 % EOSINOPHILS RELATIVE PERCENT (BEAKER) (test ptpr=677) 7 % BASOPHILS RELATIVE PERCENT (BEAKER) (test bcdp=739) 1 % NEUTROPHILS ABSOLUTE COUNT (BEAKER) (test tvlx=385) 2.70 K/ L 1.80-8.00 LYMPHOCYTES ABSOLUTE COUNT (BEAKER) (test vgrn=734) 2.08 K/ L 1.48-4.50 MONOCYTES ABSOLUTE COUNT (BEAKER) (test bgar=198) 0.55 K/ L 0.00-1.30 EOSINOPHILS ABSOLUTE COUNT (BEAKER) (test ivcd=584) 0.42 K/ L 0.00-0.50 BASOPHILS ABSOLUTE COUNT (BEAKER) (test zpua=150) 0.05 K/ L 0.00-0.20 0.00POCT-GLUCOSE [id number] 21:51:00* Test Item Value Reference Range Comments POC-GLUCOSE METER (BEAKER) (test kqdz=4664) 239 mg/dL 70-110 TESTED AT [address] [address] POCT-GLUCOSE [id number] 17:57:00* Test Item Value Reference Range Comments POC-GLUCOSE METER (BEAKER) (test heve=7562) 156 mg/dL 70-110 TESTED AT [address] [address] POCT-GLUCOSE [id number] 12:14:00* Test Item Value Reference Range Comments POC-GLUCOSE METER (BEAKER) (test qybh=9321) 268 mg/dL 70-110 TESTED AT [address] [address] POCT-GLUCOSE [id number] 08:02:00* Test Item Value Reference Range Comments POC-GLUCOSE METER (BEAKER) (test hwib=7469) 203 mg/dL 70-110 TESTED AT [address] [address] CREATINE KINASE (CK), TOTAL AND [id number] 05:20:00* Test Item Value Reference Range Comments CREATINE KINASE TOTAL (BEAKER) (test issn=943) 89 U/L 29-200 CREATINE KINASE-MB (BEAKER) (test ktww=876) 0.9 ng/mL 0.0-6.6 CREATINE KINASE-MB INDEX (BEAKER) (test jqyr=240) 1.0 % Effective 03/20/2014: CK-MB Reference Range ChangeNew: 0.0-6.6 Previous: 0.0- 4.9CK-MB Reference Range:<6.7 Normal6.7-10.0 Borderline>10.0 Abnormal B-TYPE NATRIURETIC FACTOR (BNP)2016-08-23 05:14:00* Test Item Value Reference Range Comments B-TYPE NATRIURETIC PEPTIDE (BEAKER) (test dngf=242) 249 pg/mL 0-100 [id number] 05:13:00* Test Item Value Reference Range Comments PHOSPHORUS (BEAKER) (test llfg=528) 4.2 mg/dL 2.3-4.7 [id number] 05:13:00* Test Item Value Reference Range Comments MAGNESIUM (BEAKER) (test hnka=827) 2.2 mg/dL 1.6-2.6 BASIC METABOLIC [id number] 05:13:00* Test Item Value Reference Range Comments SODIUM (BEAKER) (test agkw=510) 138 meq/L 136-145 POTASSIUM (BEAKER) (test lkkp=690) 3.9 meq/L 3.5-5.1 CHLORIDE (BEAKER) (test ixbf=179) 102 meq/L 98-107 CO2 (BEAKER) (test krew=713) 25 meq/L 22-29 BLOOD UREA NITROGEN (BEAKER) (test frbu=189) 23 mg/dL 7-21 CREATININE (BEAKER) (test hudw=122) 1.35 mg/dL 0.57-1.25 GLUCOSE RANDOM (BEAKER) (test gtzb=086) 165 mg/dL 70-105 CALCIUM (BEAKER) (test hdai=759) 9.0 mg/dL 8.4-10.2 EGFR (BEAKER) (test lzjp=9925) 48 mL/min/1.73 sq m ESTIMATED GFR IS NOT ACCURATE CREATININE CLEARANCE IN PREDICTING GLOMERULAR FILTRATION RATE. ESTIMATED GFR IS NOT APPLICABLE FOR DIALYSIS PATIENTS. CBC W/PLT COUNT & AUTO [id number] 04:58:00* Test Item Value Reference Range Comments WHITE BLOOD CELL COUNT (BEAKER) (test djfo=069) 6.0 K/ L 4.0-10.0 RED BLOOD CELL COUNT (BEAKER) (test gocd=393) 4.40 M/ L 4.00-5.00 HEMOGLOBIN (BEAKER) (test phry=964) 13.5 GM/DL 12.0-15.0 HEMATOCRIT (BEAKER) (test hdzs=385) 41.8 % 36.0-45.0 MEAN CORPUSCULAR VOLUME (BEAKER) (test bqtq=668) 95.1 fL 82.0-99.0 MEAN CORPUSCULAR HEMOGLOBIN (BEAKER) (test sqyg=913) 30.7 pg 27.0-33.0 MEAN CORPUSCULAR HEMOGLOBIN CONC (BEAKER) (test vjgq=691) 32.3 GM/DL 32.0-36.0 RED CELL DISTRIBUTION WIDTH (BEAKER) (test jgmj=221) 13.1 % 10.3-14.2 PLATELET COUNT (BEAKER) (test fgtm=749) 235 K/CU MM 150-430 MEAN PLATELET VOLUME (BEAKER) (test svjt=706) 8.8 fL 6.5-10.5 NUCLEATED RED BLOOD CELLS (BEAKER) (test dkky=341) 0 /100 WBC 0-0 NEUTROPHILS RELATIVE PERCENT (BEAKER) (test snkx=379) 52 % LYMPHOCYTES RELATIVE PERCENT (BEAKER) (test dpba=660) 28 % MONOCYTES RELATIVE PERCENT (BEAKER) (test qant=968) 11 % EOSINOPHILS RELATIVE PERCENT (BEAKER) (test ucvq=661) 7 % BASOPHILS RELATIVE PERCENT (BEAKER) (test hcqc=273) 1 % NEUTROPHILS ABSOLUTE COUNT (BEAKER) (test kboi=708) 3.12 K/ L 1.80-8.00 LYMPHOCYTES ABSOLUTE COUNT (BEAKER) (test zyym=590) 1.68 K/ L 1.48-4.50 MONOCYTES ABSOLUTE COUNT (BEAKER) (test pwvf=411) 0.68 K/ L 0.00-1.30 EOSINOPHILS ABSOLUTE COUNT (BEAKER) (test zokp=715) 0.42 K/ L 0.00-0.50 BASOPHILS ABSOLUTE COUNT (BEAKER) (test uizs=016) 0.07 K/ L 0.00-0.20 0.00POCT-GLUCOSE [id number] 22:18:00* Test Item Value Reference Range Comments POC-GLUCOSE METER (BEAKER) (test xsvc=0347) 372 mg/dL 70-110 Notified SUKHDEV AMAYA/TESTED AT [facility] [address] [facility] [address] POCT-GLUCOSE [id number] 18:11:00* Test Item Value Reference Range Comments POC-GLUCOSE METER (BEAKER) (test jjrj=0109) 260 mg/dL 70-110 TESTED AT [facility] [address] [facility] [address] CBC W/PLT COUNT & AUTO [id number] 15:04:00* Test Item Value Reference Range Comments WHITE BLOOD CELL COUNT (BEAKER) (test njqa=811) 6.5 K/ L 4.0-10.0 RED BLOOD CELL COUNT (BEAKER) (test eejo=955) 4.13 M/ L 4.00-5.00 HEMOGLOBIN (BEAKER) (test bien=787) 13.1 GM/DL 12.0-15.0 HEMATOCRIT (BEAKER) (test kbko=640) 39.5 % 36.0-45.0 MEAN CORPUSCULAR VOLUME (BEAKER) (test wcdj=603) 95.8 fL 82.0-99.0 MEAN CORPUSCULAR HEMOGLOBIN (BEAKER) (test zztf=364) 31.6 pg 27.0-33.0 MEAN CORPUSCULAR HEMOGLOBIN CONC (BEAKER) (test rlmp=693) 33.0 GM/DL 32.0-36.0 RED CELL DISTRIBUTION WIDTH (BEAKER) (test utky=350) 13.1 % 10.3-14.2 PLATELET COUNT (BEAKER) (test zkcd=071) 218 K/CU MM 150-430 MEAN PLATELET VOLUME (BEAKER) (test zsoy=710) 9.4 fL 6.5-10.5 NUCLEATED RED BLOOD CELLS (BEAKER) (test zqve=263) 0 /100 WBC 0-0 NEUTROPHILS RELATIVE PERCENT (BEAKER) (test xakm=470) 56 % LYMPHOCYTES RELATIVE PERCENT (BEAKER) (test nzkj=818) 29 % MONOCYTES RELATIVE PERCENT (BEAKER) (test kymv=784) 9 % EOSINOPHILS RELATIVE PERCENT (BEAKER) (test eczk=105) 5 % BASOPHILS RELATIVE PERCENT (BEAKER) (test qohu=501) 1 % NEUTROPHILS ABSOLUTE COUNT (BEAKER) (test iwnh=995) 3.66 K/ L 1.80-8.00 LYMPHOCYTES ABSOLUTE COUNT (BEAKER) (test fexx=117) 1.89 K/ L 1.48-4.50 MONOCYTES ABSOLUTE COUNT (BEAKER) (test kqwd=788) 0.59 K/ L 0.00-1.30 EOSINOPHILS ABSOLUTE COUNT (BEAKER) (test wxze=446) 0.34 K/ L 0.00-0.50 BASOPHILS ABSOLUTE COUNT (BEAKER) (test nkei=173) 0.05 K/ L 0.00-0.20 0.000.520.000.000.000.00(MANUAL DIFFERENTIAL)2016-08-22 15:04:00* Test Item Value Reference Range Comments TOTAL COUNTED (BEAKER) (test txum=3944) WBC MORPHOLOGY (BEAKER) (test eyhd=236) Normal PLT MORPHOLOGY (BEAKER) (test zmdx=674) Normal RBC MORPHOLOGY (BEAKER) (test oqzg=489) Normal POCT-GLUCOSE [id number] 12:04:00* Test Item Value Reference Range Comments POC-GLUCOSE METER (BEAKER) (test kick=9384) 225 mg/dL 70-110 TESTED AT [address] [address] POCT-GLUCOSE [id number] 07:58:00* Test Item Value Reference Range Comments POC-GLUCOSE METER (BEAKER) (test kete=3127) 231 mg/dL 70-110 TESTED AT [address] [address] HEMOGLOBIN [id number] 07:08:00* Test Item Value Reference Range Comments HEMOGLOBIN A1C (BEAKER) (test ieyb=605) 11.9 % 4.3-6.1 [id number] 06:14:00* Test Item Value Reference Range Comments PHOSPHORUS (BEAKER) (test uaxw=521) 3.3 mg/dL 2.3-4.7 [id number] 06:14:00* Test Item Value Reference Range Comments MAGNESIUM (BEAKER) (test lbps=782) 2.0 mg/dL 1.6-2.6 BASIC METABOLIC [id number] 06:14:00* Test Item Value Reference Range Comments SODIUM (BEAKER) (test wqro=174) 137 meq/L 136-145 POTASSIUM (BEAKER) (test bqji=196) 3.8 meq/L 3.5-5.1 CHLORIDE (BEAKER) (test fpjz=612) 102 meq/L 98-107 CO2 (BEAKER) (test mqjq=575) 25 meq/L 22-29 BLOOD UREA NITROGEN (BEAKER) (test jicx=630) 17 mg/dL 7-21 CREATININE (BEAKER) (test nqwt=170) 1.19 mg/dL 0.57-1.25 GLUCOSE RANDOM (BEAKER) (test aijl=465) 259 mg/dL 70-105 CALCIUM (BEAKER) (test jtkj=915) 8.5 mg/dL 8.4-10.2 EGFR (BEAKER) (test qfwl=9566) 56 mL/min/1.73 sq m ESTIMATED GFR IS NOT ACCURATE CREATININE CLEARANCE IN PREDICTING GLOMERULAR FILTRATION RATE. ESTIMATED GFR IS NOT APPLICABLE FOR DIALYSIS PATIENTS. LIPID [id number] 06:14:00* Test Item Value Reference Range Comments TRIGLYCERIDES (BEAKER) (test ugdy=656) 145 mg/dL CHOLESTEROL (BEAKER) (test psbq=501) 187 mg/dL HDL CHOLESTEROL (BEAKER) (test unkf=690) 44 mg/dL LDL CHOLESTEROL CALCULATED (BEAKER) (test auvm=886) 114 mg/dL Triglyceride Reference Range: Low Risk <150 Borderline 150-199 High Risk 200-499 Very High Risk >=500Cholesterol Reference Range: Low Risk <200 Borderline 200-239 High Risk >240HDL Cholesterol Reference Range: Low Risk >=60 High Risk <40LDL Cholesterol Reference Range: Optimal <100 Near Optimal 100-129 Borderline 130-159 High 160-189 Very High >=190 CREATINE KINASE (CK), TOTAL AND [id number] 06:14:00* Test Item Value Reference Range Comments CREATINE KINASE TOTAL (BEAKER) (test rece=514) 86 U/L 29-200 CREATINE KINASE-MB (BEAKER) (test dzpj=974) 1.0 ng/mL 0.0-6.6 CREATINE KINASE-MB INDEX (BEAKER) (test dzgy=847) 1.2 % Effective 03/20/2014: CK-MB Reference Range ChangeNew: 0.0-6.6 Previous: 0.0- 4.9CK-MB Reference Range:<6.7 Normal6.7-10.0 Borderline>10.0 Abnormal TROPONIN [id number] 06:09:00* Test Item Value Reference Range Comments TROPONIN I (KASSANDRA) (test fhfv=757) 0.01 ng/mL 0.00-0.03 Effective 03/20/2014: Reference Range ChangeNew: 0.00-0.03 Previous 0.00-0.15T roponin I (TnI) levels must be interpreted in the context of the presenting symp toms and the clinical findings. Elevated TnI levels indicate myocardial damage, but are not specific for ischemic heart disease. Elevated TnI levels are seen in patients with other cardiac conditions (including myocarditis and congestive he art failure), and slight TnI elevations occur in patients with other conditions, including sepsis, renal failure, acidosis, acute neurological disease, and pers istent tachyarrhythmia.POCT-GLUCOSE [id number] 23:57:00* Test Item Value Reference Range Comments POC-GLUCOSE METER (KASSANDRA) (test vbwe=2612) 342 mg/dL 70-110 TESTED AT [facility] [address] [id number] CREATINE KINASE (CK), TOTAL AND [id number] 18:16:00* Test Item Value Reference Range Comments CREATINE KINASE TOTAL (BRANDONAKER) (test ghug=615) 100 U/L 29-200 CREATINE KINASE-MB (BEAKER) (test dipl=411) 1.1 ng/mL 0.0-6.6 CREATINE KINASE-MB INDEX (BEAKER) (test ylez=373) 1.1 % Effective 03/20/2014: CK-MB Reference Range ChangeNew: 0.0-6.6 Previous: 0.0- 4.9CK-MB Reference Range:<6.7 Normal6.7-10.0 Borderline>10.0 Abnormal TROPONIN [id number] 18:16:00* Test Item Value Reference Range Comments TROPONIN I (BRANDONAKER) (test yrzh=305) 0.02 ng/mL 0.00-0.03 Effective 03/20/2014: Reference Range ChangeNew: 0.00-0.03 Previous 0.00-0.15T roponin I (TnI) levels must be interpreted in the context of the presenting symp toms and the clinical findings. Elevated TnI levels indicate myocardial damage, but are not specific for ischemic heart disease. Elevated TnI levels are seen in patients with other cardiac conditions (including myocarditis and congestive he art failure), and slight TnI elevations occur in patients with other conditions, including sepsis, renal failure, acidosis, acute neurological disease, and pers istent tachyarrhythmia.POCT-GLUCOSE [id number] 17:48:00* Test Item Value Reference Range Comments POC-GLUCOSE METER (BEAKER) (test coii=4851) 242 mg/dL 70-110 TESTED AT [facility] [address] [address] BASIC METABOLIC [id number] 15:32:00* Test Item Value Reference Range Comments SODIUM (BEAKER) (test vglm=245) 138 meq/L 136-145 POTASSIUM (BEAKER) (test zguj=880) 3.8 meq/L 3.5-5.1 CHLORIDE (BEAKER) (test umtg=932) 105 meq/L 98-107 CO2 (BEAKER) (test week=598) 25 meq/L 22-29 BLOOD UREA NITROGEN (BEAKER) (test tbpu=585) 15 mg/dL 7-21 CREATININE (BEAKER) (test qtuc=620) 1.11 mg/dL 0.57-1.25 GLUCOSE RANDOM (BEAKER) (test vwfn=959) 271 mg/dL 70-105 CALCIUM (BEAKER) (test bdor=802) 8.9 mg/dL 8.4-10.2 EGFR (BEAKER) (test bkwg=8687) mL/min/1.73 sq m INSUFFICIENT CLINICAL DATA TO CALCULATE ESTIMATED GFR. CREATINE KINASE (CK), TOTAL AND [id number] 15:29:00* Test Item Value Reference Range Comments CREATINE KINASE TOTAL (BEAKER) (test tsjp=801) 96 U/L 29-200 CREATINE KINASE-MB (BEAKER) (test hmjw=964) 1.2 ng/mL 0.0-6.6 CREATINE KINASE-MB INDEX (BEAKER) (test ndoj=437) 1.3 % Effective 03/20/2014: CK-MB Reference Range ChangeNew: 0.0-6.6 Previous: 0.0- 4.9CK-MB Reference Range:<6.7 Normal6.7-10.0 Borderline>10.0 Abnormal TROPONIN [id number] 15:29:00* Test Item Value Reference Range Comments TROPONIN I (BEAKER) (test hevb=993) 0.02 ng/mL 0.00-0.03 Effective 03/20/2014: Reference Range ChangeNew: 0.00-0.03 Previous 0.00-0.15T roponin I (TnI) levels must be interpreted in the context of the presenting symp toms and the clinical findings. Elevated TnI levels indicate myocardial damage, but are not specific for ischemic heart disease. Elevated TnI levels are seen in patients with other cardiac conditions (including myocarditis and congestive he art failure), and slight TnI elevations occur in patients with other conditions, including sepsis, renal failure, acidosis, acute neurological disease, and pers istent tachyarrhythmia.B-TYPE NATRIURETIC FACTOR (BNP)2016-08-21 15:29:00* Test Item Value Reference Range Comments B-TYPE NATRIURETIC PEPTIDE (BEAKER) (test iraj=903) 354 pg/mL 0-100 [id number] 15:21:00* Test Item Value Reference Range Comments MAGNESIUM (BEAKER) (test vilb=648) 1.9 mg/dL 1.6-2.6 CBC W/PLT COUNT & AUTO [id number] 15:09:00* Test Item Value Reference Range Comments WHITE BLOOD CELL COUNT (BEAKER) (test ajrq=387) 7.6 K/ L 4.0-10.0 RED BLOOD CELL COUNT (BEAKER) (test kyqy=948) 4.39 M/ L 4.00-5.00 HEMOGLOBIN (BEAKER) (test nzvx=252) 13.7 GM/DL 12.0-15.0 HEMATOCRIT (BEAKER) (test pixs=567) 41.8 % 36.0-45.0 MEAN CORPUSCULAR VOLUME (BEAKER) (test ifzg=363) 95.3 fL 82.0-99.0 MEAN CORPUSCULAR HEMOGLOBIN (BEAKER) (test lubl=040) 31.2 pg 27.0-33.0 MEAN CORPUSCULAR HEMOGLOBIN CONC (BEAKER) (test tceg=703) 32.7 GM/DL 32.0-36.0 RED CELL DISTRIBUTION WIDTH (BEAKER) (test onoa=519) 13.1 % 10.3-14.2 PLATELET COUNT (BEAKER) (test eqsi=666) 224 K/CU MM 150-430 MEAN PLATELET VOLUME (BEAKER) (test iqaj=449) 8.5 fL 6.5-10.5 NUCLEATED RED BLOOD CELLS (BEAKER) (test sraz=052) 0 /100 WBC 0-0 NEUTROPHILS RELATIVE PERCENT (BEAKER) (test rgkv=032) 61 % LYMPHOCYTES RELATIVE PERCENT (BEAKER) (test idzz=621) 27 % MONOCYTES RELATIVE PERCENT (BEAKER) (test zfjd=790) 6 % EOSINOPHILS RELATIVE PERCENT (BEAKER) (test nxss=892) 4 % BASOPHILS RELATIVE PERCENT (BEAKER) (test erwj=477) 2 % NEUTROPHILS ABSOLUTE COUNT (BEAKER) (test core=687) 4.62 K/ L 1.80-8.00 LYMPHOCYTES ABSOLUTE COUNT (BEAKER) (test rnwt=646) 2.02 K/ L 1.48-4.50 MONOCYTES ABSOLUTE COUNT (BEAKER) (test agdj=387) 0.49 K/ L 0.00-1.30 EOSINOPHILS ABSOLUTE COUNT (BEAKER) (test omns=720) 0.31 K/ L 0.00-0.50 BASOPHILS ABSOLUTE COUNT (BEAKER) (test jsbt=690) 0.12 K/ L 0.00-0.20 0.00
[2018-05-30] MEDS ORDERED: IPRATROPIUM BROMIDE 0.02% 2.5 ML NEB NEB STA (12:57)
[2018-05-30] MEDS ORDERED: ALBUTEROL SULF 0.083% NEB SOLN 3 ML NEB NEB STA (12:57)
[2018-05-30] MEDS ORDERED: METHYLPREDNISOLONE SOD SUCC 125 MG/2ML VIAL IV ONE (13:00)
[2018-05-30] MEDS ORDERED: ACETAMINOPHEN 325 MG TAB PO ONE (13:00)
--- NOTE | 2018-05-30 13:05 | NUR ---
RADIOLOGY AT BEDSIDE FOR CXR AT THIS TIME
[2018-05-30 13:09] LABS: BASOPHILS # (AUTO) 0.1 (0.0-0.1); BASOPHILS % 0.5 % (0.0-1.0); EOSINOPHILS % 0.1 % (0.0-6.0); HEMATOCRIT 42.5 % (34.2-44.1); HEMOGLOBIN 13.3 g/dL (12.0-16.0); LYMPHOCYTES # (AUTO) 0.9 (1.0-3.2); LYMPHOCYTES % 9.5 % (18.0-39.1); MEAN CORPUSCULAR HEMOGLOBIN 28.9 pg (28-32); MEAN CORPUSCULAR HGB CONC 31.3 g/dL (31-35); MEAN CORPUSCULAR VOLUME 92.4 fL (81-99); MONOCYTES # (AUTO) 0.8 (0.2-0.8); MONOCYTES % 8.2 % (4.4-11.3); NEUTROPHILS # (AUTO) 7.7 (2.1-6.9); NEUTROPHILS % 81.3 % (38.7-80.0); PLATELET COUNT 245 x10e3/uL (140-360); RED CELL DISTRIBUTION WIDTH 13.9 % (11.7-14.4)
--- NOTE | 2018-05-30 13:10 | NUR ---
RT notified of need for neb treatment.
[2018-05-30 13:16] LABS: BILIRUBIN,URINE NEGATIVE (NEGATIVE); CLARITY,URINE SL CLOUDY (CLEAR); COLOR,URINE YELLOW (YELLOW); KETONES,URINE NEGATIVE (NEGATIVE); LEUKOCYTE ESTERASE ,URINE NEGATIVE (NEGATIVE); NITRITE,URINE NEGATIVE (NEGATIVE); PROTEIN,URINE DIPSTICK 2+ (NEGATIVE); URINE UROBILINOGEN 0.2 mg/dL (0.2 - 1)
[2018-05-30 13:34] LABS: AMORPHOUS SEDIMENT,URINE MODERATE (FEW); BACTERIA,URINE MANY /HPF; EPITHELIAL CELLS,URINE MANY /LPF; TRANSITIONAL EPI CELLS,URINE MODERATE
--- NOTE | 2018-05-30 13:35 | Diagnostic Imaging Report ---
Examination: Single AP view of the chest. COMPARISON: January 15, 2018 INDICATION: Wheezing, coughing DISCUSSION: Lines/tubes: None. Lungs: Pulmonary venous congestion with interstitial and alveolar opacities. Pleura: There is no pleural effusion or pneumothorax. Heart and mediastinum: Cardiomegaly Bones and soft tissues: No acute bony abnormalities. IMPRESSION: 1. Cardiomegaly with pulmonary edema. Correlate for underlying pneumonia. Signed by: Dr. Manpreet Haynes M.D. on 05/30/2018 1:32 PM
[2018-05-30 13:36] LABS: ALANINE AMINOTRANSFERASE 13 IU/L (0-55); ALBUMIN 3.3 g/dL (3.5-5.0); ALBUMIN/GLOBULIN RATIO 0.8 (0.8-2.0); ALKALINE PHOSPHATASE 77 IU/L (40-150); AMYLASE 47 U/L (25-125); ANION GAP 15.9 mmol/L (8-16); BLOOD UREA NITROGEN 23 mg/dL (7-26); BUN/CREATININE RATIO 15 (6-25); CALCIUM 8.8 mg/dL (8.4-10.2); CARBON DIOXIDE 25 mmol/L (22-29); CHLORIDE 99 mmol/L (98-107); CREATINE KINASE 212 IU/L (29-168); CREATININE, SERUM 1.58 mg/dL (0.57-1.11); EST GLOMERULAR FILTRATION RATE 40 ML/MIN (60-); GLUCOSE 185 mg/dL (74-118); LIPASE 8 U/L (8-78); POTASSIUM 3.9 mmol/L (3.5-5.1); SODIUM 136 mmol/L (136-145)
[2018-05-30 13:40] LABS: STREPTOCOCCUS GRP A ANTIGEN NEGATIVE (NEGATIVE)
[2018-05-30 13:49] LABS: INFLUENZAE A&B ANTIGEN (RAPID) NEGATIVE (NEGATIVE)
[2018-05-30 13:57] LABS: B-TYPE NATRIURETIC PEPTIDE2 1396.6 pg/mL (0-100)
[2018-05-30] MEDS ORDERED: ONDANSETRON HCL INJ 2MG/ML 2ML 2 MG/ML VIAL IV STA (14:13)
--- NOTE | 2018-05-30 14:15 | NUR ---
PT SELF MEDICATED WITH HOME MEDICATIONS FOR HYPERTENSION AT THIS TIME, DIRECTED ON MEDICATION BOTTLES. AMNA HORN MADE AWARE OF THIS.
[2018-05-30] MEDS ORDERED: FUROSEMIDE INJ 10 MG/ML 4 ML VIAL IV ONE (15:00)
[2018-05-30] MEDS: NITROGLYCERIN 2% OINT 1 GM PKT TOP SCH (15:25)
[2018-05-30] MEDS ORDERED: SODIUM CHLORIDE FLUSH 10 ML SYR INJ PRN (16:45)
--- NOTE | 2018-05-30 17:00 | NUR ---
PT ASSISTED TO SIDE OF BED FOR DINNER.
--- OUTSIDE RECORDS SUMMARY | 2018-05-30 17:20 | XMS REPORT | Clinical Summary ---
Author Author NATE [facility] PharmaceuticalsNell J. Red[facility] HospitalActionPlannerCity [facility] Address Unknown Phone Unavailable Care Team Providers Care Vending Machine Collector Name Role Phone Ziggy Morris MD PCP [...] ID Type Phone Address Plan / Group [facility] HMO/POS CARE POS SELECT CHOICE Advance Directives For more information, please contact: [facility] [address] [place] [address] Date Inactivated Comments Code Status Date Activated 11/07/2016 12:24 PM Full Code 11/04/2016 2:17 PM This code status was determined by: Patient 08/25/2016 4:00 PM Full Code 08/21/2016 4:00 PM This code status was determined by: Patient
[2018-05-30] MEDS ORDERED: TRULICITY SC (17:21)
[2018-05-30] MEDS: LEVOFLOXACIN 500MG/D5W 100ML 100 ML IV SCH (19:30)
--- NOTE | 2018-05-30 19:30 | NUR ---
Tele box applied prior to transport via .
--- NOTE | 2018-05-30 20:04 | History and Physical ---
HISTORY OF PRESENT ILLNESS: Khrcw[age]pewdg[age]bdjn-old female with past medical history positive for congestive heart failure, history of hypertension, history of diabetes, history of chronic renal insufficiency, history of coronary artery disease. The patient came to the hospital complaining of shortness of breath. On the chest x-ray, she was found to have pulmonary edema and a possible pneumonia. REVIEW OF SYSTEMS: CARDIOVASCULAR: No chest pain, no palpitations. RESPIRATORY: She did complain of shortness of breath, cough, and phlegm. GASTROINTESTINAL: She complained of nausea, vomiting, and diarrhea. No blood in the stools. No vomiting of blood. GENITOURINARY: No frequency, no dysuria. ALLERGIES: SHE CLAIMS THAT SHE IS NOT ALLERGIC TO ANY MEDICATION. PAST MEDICAL HISTORY: Positive for history of chronic congestive heart failure, history of coronary artery disease, history of hypertension, history of diabetes mellitus type 2, history of kidney stones. SOCIAL HISTORY: She does not smoke. She does not drink. PHYSICAL EXAMINATION: VITAL SIGNS: Blood pressure 138/78, temperature 99 degrees, heart rate 65 per minute, respiratory rate is 22 per minute. Oxygen saturation of 100%. HEART: Shows regular rhythm. Normal S1 and S2 sounds. LUNGS: Shows decreased breath sounds bilaterally. EXTREMITIES: Showed 2+ bilateral pedal edema. LABORATORY DATA: On the chest x-ray showed evidence of pulmonary edema with possibility of pneumonia. On the rest of the blood work, we have a white blood count of 9.51, hemoglobin 13.3, hematocrit 42.5, platelet count 245,000. On the CMP: Sodium 136, potassium 3.9, chloride 99, CO2 25, 15.9, BUN 23, creatinine 1.58, glucose . Lactic acid is elevated at 17.9. Calcium 8.8. Total bilirubin is 3.5, AST 19, ALT 13, alkaline phosphatase 77. Creatine kinase 212. Troponin 0.05. CK-MB 1.50. B natriuretic peptide is elevated at 1396.6. Total protein is 7.7, albumin 3.3, globulin 4.4, amylase 47, and lipase is 8. We did also influenza A and B, negative. Streptococcus A group screen completely negative. FINAL IMPRESSION: 1. Acute congestive heart failure most likely systolic in nature. Echocardiogram will decide what type of congestive heart failure she has. 2. Also bilateral pneumonia. 3. Uncontrolled diabetes mellitus type 2 with chronic renal insufficiency. 4. Hypertension with chronic renal insufficiency. 5. Obesity. PLAN OF TREATMENT: We are going to start the patient on Coreg 25 mg p.o. twice a day. Continue furosemide 40 mg IV twice a day. Continue glimepiride 4 mg daily. Continue hydralazine 50 mg 3 times a day. Continue lisinopril 10 mg daily. Continue with nitroglycerin 1 g q.6h. She is taking potassium 20 mEq daily and also I am going to start her on Levaquin 500 mg IV piggyback daily because of the concern about pneumonia. Blood cultures are ordered also, and we are going to repeat the BMP and magnesium level tomorrow since the patient is going to be on furosemide. Job#: [id number]
[2018-05-30] MEDS ORDERED: SODIUM CHLORIDE 0.9% 250ML 250 ML ONE (20:29)
--- NOTE | 2018-05-30 20:45 | NUR ---
Patient received via W/C from ER. Admission history obtained. Initial physical assessment performed. Patient is AAO x 3. Patient had no complaints of pain except occasional non-productive cough. Patient complained of shortness of breath. Patient placed on 2L NC. Patient oriented to room, call light and plan of care. Fall precautions maintained. Patient instructed to call for assistance when needed. Call light within reach.
[2018-05-30 21:00] VITALS: BP 126/64
[2018-05-30] MEDS ORDERED: INSULIN LISPRO 100 UNIT/1 ML 3ML VIAL SQ SCH (21:00)
[2018-05-30 21:10] VITALS: BP 156/76
[2018-05-30] MEDS: HYDRALAZINE HCL 25 MG TAB PO SCH (21:15)
[2018-05-30] MEDS: FUROSEMIDE INJ 10 MG/ML 4 ML VIAL IV SCH (21:15)
[2018-05-30] MEDS: ATORVASTATIN 20 MG TAB PO SCH (21:15)
--- NOTE | 2018-05-30 21:21 | NUR ---
Dr. Chambers paged for Nebulizer treatment orders and to obtain a sliding scale for Humalog. Awaiting call back.
[2018-05-30 22:00] VITALS: BP 156/76
--- NOTE | 2018-05-30 22:14 | NUR ---
Dr. Chambers re-paged. Awaiting orders.
--- NOTE | 2018-05-30 23:06 | NUR ---
Dr. Chambers re-paged. New orders received.
[2018-05-30] MEDS ORDERED: DEXTROSE 50% SYRINGE 50 ML IV PRN (23:15)
[2018-05-30] MEDS: IPRATROPIUM BROMIDE 0.02% 2.5 ML NEB NEB PRN (23:20)
[2018-05-30] MEDS: ALBUTEROL SULF 0.083% NEB SOLN 3 ML NEB NEB PRN (23:20)
--- NOTE | 2018-05-30 23:30 | NUR ---
Blood specimen sent to lab for analysis of cardiac enzymes.
[2018-05-30] MEDS: GUAIFENESIN 200 MG/10 ML UDC PO PRN (23:55)
[2018-05-31] VITALS (7 sets, daily range): BP systolic 125–142; BP diastolic 56–75
[2018-05-31] MEDS: NITROGLYCERIN 2% OINT 1 GM PKT TOP SCH ×4 (00:06→18:17)
[2018-05-31 00:18] LABS: CREATINE KINASE MB 1.1 ng/mL (0-5.0)
[2018-05-31 05:42] LABS: CALCIUM 8.6 mg/dL (8.4-10.2); CREATININE, SERUM 2.12 mg/dL (0.57-1.11); MAGNESIUM 1.9 MG/DL (1.3-2.1)
--- NOTE | 2018-05-31 06:25 | Diagnostic Imaging Report ---
CHEST SINGLE (PORTABLE), 05/31/2018 7:00 AM Technique: CHEST SINGLE (PORTABLE) Comparison: Previous day Clinical history: Shortness of breath Findings: See Impression Impression: 1. Lines/Tubes: None 2. Stable enlarged cardiac silhouette. 3. Persistent bilateral pulmonary opacities, possibly a component of underlying edema. No significant effusion appreciated. Signed by: Dr Ileana Trevizo MD on 05/31/2018 6:21 AM
[2018-05-31] MEDS: IPRATROPIUM BROMIDE 0.02% 2.5 ML NEB NEB PRN (06:30)
[2018-05-31] MEDS: ALBUTEROL SULF 0.083% NEB SOLN 3 ML NEB NEB PRN (06:30)
[2018-05-31 06:33] LABS: CREATINE KINASE MB 1.2 ng/mL (0-5.0)
[2018-05-31] MEDS: CARVEDILOL 12.5 MG TAB PO SCH ×2 (09:41→16:56)
[2018-05-31] MEDS: GLIMEPIRIDE 2 MG TAB PO SCH (09:41)
[2018-05-31] MEDS: FUROSEMIDE INJ 10 MG/ML 4 ML VIAL IV SCH ×2 (09:41→21:50)
[2018-05-31] MEDS: LISINOPRIL 10 MG TAB PO SCH (09:41)
[2018-05-31] MEDS: INSULIN LISPRO 100 UNIT/1 ML 3ML VIAL SQ SCH ×4 (09:41→21:00)
[2018-05-31] MEDS: POTASSIUM CHLORIDE 20 MEQ TAB CR PO SCH (09:41)
[2018-05-31] MEDS: HYDRALAZINE HCL 25 MG TAB PO SCH ×3 (09:41→21:00)
--- NOTE | 2018-05-31 09:56 | Consultation ---
DATE OF CONSULTATION: May 31, 2018 CARDIAC CONSULTATION REASON FOR CONSULTATION: Congestive heart failure. HISTORY: This is a 63-year-old lady who is known with hypertension, diastolic heart failure, diabetes mellitus, chronic renal insufficiency. The patient is followed aggressively at [facility] by Dr. Ray. She is having weekly evaluation in the heart failure clinic over there. Patient had cold-like illness, and with that the patient had quite a lot of shortness of breath. She cannot breathe. She came to the emergency room. She was given diuretics. Her BNP was elevated in the 1000 range. The patient is feeling a little bit better. Her symptoms were progressively worse. She took 2 Lasix from her one daily dose of Lasix, and this did not help. The patient decided to go to the emergency room. Cardiac mazariegos as per patient, she had a cardiac catheterization 2 years ago and was negative. Dr. Ray told her she does not have any coronary artery disease. It is all because of her heart is thick. She is followed very aggressively at [facility]. She expressed she would like to keep followup with them. She is better now. She can breathe easier. REVIEW OF SYSTEMS CARDIAC: As per above. PULMONARY: Cough and cold-like prior to this illness. GI: Occasional bloating and indigestion. : No hematuria. No dysuria. MUSCULOSKELETAL: Back pain. NEUROLOGICAL: No headache. No seizure activity. SOCIAL HISTORY: She is . She is a nonsmoker. She is not an alcohol drinker. 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 HOME MEDICATIONS: Includes all the followin. Lisinopril 10 mg a day. 2. Hydralazine 50 mg 3 times a day. 3. Atorvastatin 20 mg a day. 4. Furosemide 40 mg a day. 5. Coreg 25 mg twice a day. 6. Potassium chloride 20 mEq a day. 7. Insulin. 8. Albuterol. 9. Glimepiride. 10. Following admission, also she was started on Levaquin besides the IV Lasix. PAST MEDICAL HISTORY 1. Diabetes mellitus. 2. Hypertension. 3. Hyperlipidemia. 4. Kidney stone. 5. Cholecystectomy. 6. Hysterectomy. 7. Obesity. 8. Chronic heart failure, followed in [facility] clinic on a weekly basis. 9. Cardiac catheterization 2 years ago, which was okay. FAMILY HISTORY: She is adopted. She does have 2 healthy sons. PHYSICAL EXAMINATION VITALS: Height 5 feet 4 inches, weight of 290 pounds, blood pressure 130/60, heart rate of 60, respiratory rate of 18. HEENT: Pupils are reactive. NECK: No elevation of jugular venous pulsation. Short neck. CHEST: Decreased lung expansion. HEART: PMI in 5th left intercostal space. Normal 1st and 2nd heart sounds. ABDOMEN: Soft with good bowel sounds. EXTREMITIES: No cyanosis. No clubbing. No edema. NEUROLOGIC: Nonfocal. LAB DATA: Sodium of 132, potassium of 4, BUN of 33, creatinine of 2.1. Hemoglobin of 13.3, hematocrit 42%, white blood cell count of 9.5. IMPRESSION AND PLAN 1. Exacerbation of chronic diastolic heart failure by definition. 2. Hypertension. 3. Mild chronic renal insufficiency. 4. Diabetes mellitus. 5. Obesity. Cardiac mazariegos, the patient is on appropriate medication. Patient's medication will be adjusted. Will keep a good close eye on her labs. Depending on his course, further steps to be done. Aspirin of course will be added also to her regimen in addition to her Coreg, lisinopril, hydralazine, nitrate, and diuretics. Job#: [id number] LESTER
--- NOTE | 2018-05-31 14:54 | Diagnostic Imaging Report ---
EXAM: Renal Ultrasound INDICATION: CKD. COMPARISON: None TECHNIQUE: Transverse and longitudinal images of the kidneys and bladder were obtained. FINDINGS: Somewhat limited exam secondary to body habitus. Right Kidney: Length: Measures 9.5 x 4.3 x 6.0 cm Appearance: Normal echogenicity. Collecting system: No hydronephrosis Stones: None Cyst/Mass: None Left Kidney: Length: Measures 11.2 x 5.2 x 5.7 cm Appearance: Normal echogenicity. Collecting system: No hydronephrosis Stones: None Cyst/Mass: None Bladder: Normal IMPRESSION: Unremarkable renal ultrasound. No evidence of stone or hydronephrosis. Signed by: Dr. Shagufta Adams MD on 05/31/2018 2:51 PM
[2018-05-31] MEDS ORDERED: CHLORASEPTIC SPRAY 177 ML BTL MM PRN (15:00)
--- NOTE | 2018-05-31 15:55 | NUR ---
Visit made by the Spiritual Care Department Pastoral Visitor, Codi Branch. Pt out of room and no family at bedside. A card was left at the bedside to indicate a missed visit from a member of the Spiritual Care team and to inform the pt and family of the availability of a Sap Payroll Consultant 24 hours a day/7 days a week. A standpipe tender will follow up as able. SANDY DUNN Sap Payroll Consultant Spiritual Care Department O: [phone] Pager: [phone] ([phone] number calling from)
[2018-05-31] MEDS: LEVOFLOXACIN 500MG/D5W 100ML 100 ML IV SCH (17:00)
[2018-05-31] MEDS: ENOXAPARIN SOD INJ 40 MG/0.4 ML SYR SC SCH (18:17)
--- NOTE | 2018-05-31 18:41 | Progress Note ---
DATE: May 31, 2018 INTERNAL MEDICINE PROGRESS NOTE SUBJECTIVE: The patient is still complaining of shortness of breath and cough. PHYSICAL EXAM: HEART: Shows regular rhythm. Normal S1 and S2 sounds. LUNGS: Show bilateral rales on both bases. EXTREMITIES: Show 2+ bilateral pedal edema. VITAL SIGNS: Blood pressure 125/56. Temperature 97.6. Heart rate 59 per minute. Respiratory rate 17 per minute. Oxygen saturation 97%. On the BMP: Sodium 132, potassium 4.0, chloride 98, CO2 22, BUN 33, creatinine 2.12, glucose 180. On the CBC: White blood count 9.51, hemoglobin 13.3, hematocrit 42.5, platelet count 245,000. AST 19, ALT 13, total bilirubin 3.5, alkaline phosphatase 77. FINAL IMPRESSION: 1. Acute on chronic diastolic congestive heart failure exacerbation. 2. Chronic obstructive pulmonary disease exacerbation. 3. Possible pneumonia. 4. Uncontrolled diabetes mellitus type 2 with chronic renal insufficiency. 5. Hypercholesterolemia. PLAN OF TREATMENT: We are going to increase the furosemide to 60 mg IV twice a day. We are going to do a BMP tomorrow. Continue carvedilol 25 mg twice a day. Lipitor 20 mg at bedtime. Continue monitoring blood sugar a.c. and nightly. Lovenox 40 mg subcutaneous daily for DVT prophylaxis. Potassium chloride 20 mEq daily. She is on glimepiride 4 mg daily. Guaifenesin 200 mg q.4 hours as needed for cough. Lisinopril 10 mg daily. Hydralazine 50 mg 3 times a day. Aspirin 81 mg daily. Echocardiogram been done. The ejection fraction is around 60%. Cardiology is to see the patient yet. As I said, we are going to increase the furosemide. Job#: [id number] EV
--- NOTE | 2018-05-31 19:26 | NUR ---
Patient received sitting up in recliner chair. AAO x 3. No acute distress noted. 2L NC in place. Patient instructed to call for assistance when needed. Call light within reach.
[2018-05-31] MEDS: ALBUTEROL/IPRATROPIUM 3 ML NEB NEB SCH ×2 (20:00→23:45)
[2018-05-31] MEDS: ATORVASTATIN 20 MG TAB PO SCH (21:50)
[2018-06-01] VITALS (9 sets, daily range): BP systolic 111–149; BP diastolic 57–74
[2018-06-01] MEDS: NITROGLYCERIN 2% OINT 1 GM PKT TOP SCH ×2 (00:30→06:00)
[2018-06-01] MEDS: ALBUTEROL/IPRATROPIUM 3 ML NEB NEB SCH ×6 (03:15→23:10)
[2018-06-01] MEDS: GUAIFENESIN 200 MG/10 ML UDC PO PRN (03:17)
[2018-06-01 05:35] LABS: BASOPHILS % 0.3 % (0.0-1.0); EOSINOPHILS % 0.3 % (0.0-6.0); HEMATOCRIT 41.4 % (34.2-44.1); HEMOGLOBIN 12.8 g/dL (12.0-16.0); LYMPHOCYTES % 8.3 % (18.0-39.1); MEAN CORPUSCULAR HGB CONC 30.9 g/dL (31-35); MEAN CORPUSCULAR VOLUME 93.7 fL (81-99); MONOCYTES # (AUTO) 1.6 (0.2-0.8); MONOCYTES % 13.2 % (4.4-11.3); NEUTROPHILS # (AUTO) 9.2 (2.1-6.9); NEUTROPHILS % 77.6 % (38.7-80.0); PLATELET COUNT 235 x10e3/uL (140-360); RED BLOOD COUNT 4.42 x10e6/uL (3.6-5.1); RED CELL DISTRIBUTION WIDTH 13.6 % (11.7-14.4)
[2018-06-01 06:03] LABS: ALBUMIN 2.7 g/dL (3.5-5.0); ALBUMIN/GLOBULIN RATIO 0.7 (0.8-2.0); CALCIUM 8.6 mg/dL (8.4-10.2); CHOL/HDL RATIO 2.8 (3.0-3.6); CREATININE, SERUM 2.51 mg/dL (0.57-1.11)
[2018-06-01 06:22] LABS: THYROID STIMULATING HORMONE 3.491 uIU/mL (0.350-4.940)
--- NOTE | 2018-06-01 07:02 | NUR ---
Shift report given to oncoming nurse. Patient in stable condition.
[2018-06-01] MEDS: INSULIN LISPRO 100 UNIT/1 ML 3ML VIAL SQ SCH ×4 (07:30→21:00)
[2018-06-01 07:31] LABS: LYMPHOCYTES % (MANUAL) 7 % (19-48); MONOCYTES % (MANUAL) 15 % (3.4-9.0); NEUTROPHILS % (MANUAL) 78 % (40-74)
[2018-06-01 07:32] LABS: PLATELET ESTIMATE ADEQUATE; PLATELET MORPHOLOGY COMMENT FEW GIANT
[2018-06-01 07:33] LABS: ANISOCYTOSIS SLIGHT; HYPOCHROMASIA SLIGHT; RBC MORPHOLOGY COMMENT NORMAL
[2018-06-01] MEDS: ASPIRIN 81 MG ENTERIC COATED PO SCH (08:09)
[2018-06-01] MEDS: FUROSEMIDE INJ 10 MG/ML 4 ML VIAL IV SCH (08:09)
[2018-06-01] MEDS: POTASSIUM CHLORIDE 20 MEQ TAB CR PO SCH (08:09)
[2018-06-01] MEDS: CARVEDILOL 12.5 MG TAB PO SCH ×2 (08:09→16:38)
[2018-06-01] MEDS: HYDRALAZINE HCL 25 MG TAB PO SCH ×3 (08:09→21:03)
[2018-06-01] MEDS: GLIMEPIRIDE 2 MG TAB PO SCH (08:09)
[2018-06-01] MEDS: LISINOPRIL 10 MG TAB PO SCH (08:10)
[2018-06-01] MEDS: ENOXAPARIN SOD INJ 40 MG/0.4 ML SYR SC SCH (16:37)
[2018-06-01] MEDS: LEVOFLOXACIN 500MG/D5W 100ML 100 ML IV SCH (16:38)
--- NOTE | 2018-06-01 16:57 | Progress Note ---
DATE: June 01, 2018 INTERNAL MEDICINE PROGRESS NOTE Patient is complaining of more shortness of breath and wheezing today. She was recently diagnosed with asthma. PHYSICAL EXAMINATION VITALS: Blood pressure 111/57, temperature 97.4, heart rate 61 per minute, respiratory rate is 18 per minute, oxygen saturation 100%. HEART: Shows regular rhythm. Normal S1 and S2 sounds. LUNGS: Showed bilateral wheezing. No rales. EXTREMITIES: Show 2+ bilateral pedal edema. Chest x-ray showed bilateral pulmonary opacities. On the BMP, sodium 132, potassium 4, chloride 96, CO2 26, BUN 52, creatinine 2.31, glucose 101. On the CBC, white blood count 11,800, hemoglobin 12.8, hematocrit 41.4, and platelet count 235,000. AST 21, ALT 13, total bilirubin 1.6, alkaline phosphatase 63. FINAL IMPRESSION 1. Dfcpd-jj-wqioujo diastolic congestive heart failure. 2. Asthma exacerbation. 3. Hyponatremia. 4. Obesity. 5. Bilateral pneumonia. 6. Uncontrolled diabetes mellitus, type 2 with chronic renal insufficiency. 7. Oujnk-yh-rldmeyl renal failure, stage 3. PLAN OF TREATMENT: We are going to add Solu-Medrol 40 mg IV q.8 h. Pulmicort 1 inhalation twice a day. Continue albuterol and Atrovent q.4 h. Continue Levaquin 500 mg IV daily. Continue lisinopril 10 mg daily. Hydralazine 50 mg 3 times a day. Continue aspirin 81 mg daily. Lipitor 20 mg daily. Continue monitoring blood sugar a.c. and at night. Continue Lovenox 40 mg subcutaneous daily for DVT prophylaxis. Continue carvedilol 25 mg twice a day. Continue glimepiride 4 mg daily. Guaifenesin 200 mg q.4 h. as needed. Job#: [id number] LESTER
--- NOTE | 2018-06-01 17:27 | NUR ---
Nutrition Screen Note RD Recommendation for Physician: -Continue cardiac/ ADA diet as ordered -Pt refused diet education on 06/01. Plan of Care: RD following, monitoring for tolerance and adequacy Nutrition reason for involvement: Diagnosis CHF Primary Diagnose(s): 1. Nfsgw-sh-uxzkhhh diastolic congestive heart failure. 2. Asthma exacerbation. 3. Hyponatremia. 4. Obesity. 5. Bilateral pneumonia. 6. Uncontrolled diabetes mellitus, type 2 with chronic renal insufficiency. 7. Akogu-zg-erbwpan renal failure, stage 3. PMH: CHF, DM, HTN, CAD, renal insufficiency, CAD Ht: 64in Wt: 290.44lb BMI: 49.9kg/m2 IBW: 120lb RD Assessment: (06/01) Chart reviewed. Labs and meds reviewed. 63yo morbidly obese female, who is admitted for SOB. Pt is currently on IV abx, IV lasix, and neb tx. 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 Pt denied chewing/swallowing problems and nausea/vomiting. RN recorded 75% meal intake since admission. LBM 06/01. Pt is not interested in diet education at this time. Will continue to monitor and follow. Current Diet: cardiac/ ADA diet Malnutrition Evaluation (06/01/18) The patient does not meet criteria for a specified degree of malnutrition at this time. Will re-evaluate at follow-up as appropriate. Diet Education Needs Assessment: Diet education indicated, pt is not interested. Nutrition Care Level: low Signed: Tanya Lindquist, MS, RD, LD
[2018-06-01 18:28] LABS: ANION GAP 14.9 mmol/L (8-16); CALCIUM 8.4 mg/dL (8.4-10.2); CREATININE, SERUM 2.68 mg/dL (0.57-1.11); POTASSIUM 3.9 mmol/L (3.5-5.1)
[2018-06-01] MEDS: ATORVASTATIN 20 MG TAB PO SCH (21:03)
[2018-06-01] MEDS: METHYLPREDNISOLONE SOD SUCC 40 MG/ML VIAL 1ML IV SCH (21:03)
[2018-06-01] MEDS: BUDESONIDE 0.5MG/2 ML NEB INH SCH (23:10)
[2018-06-02] VITALS (8 sets, daily range): BP systolic 111–182; BP diastolic 52–85
[2018-06-02] MEDS: ALBUTEROL/IPRATROPIUM 3 ML NEB NEB SCH ×5 (02:45→23:30)
--- NOTE | 2018-06-02 04:15 | Consultation ---
DATE OF CONSULTATION: June 02, 2018 PULMONARY MEDICINE CONSULTATION REASON FOR REFERRAL: Shortness of breath. HISTORY: Ms. Acosta is a pleasant 63-year-old female with shortness of breath. Patient presented to [facility] on May 30, 2018. Patient was having shortness of breath. Patient on x-ray was found to have pulmonary edema pattern and possible pneumonia. Patient was elected for hospitalization. Patient's cough reported as nonproductive. Patient with a history of cardiac catheterization that was reportedly unremarkable 2 years previously. Patient was told that she has diastolic dysfunction. On this hospitalization, CBC without excessive eosinophils. BNP level was 1396. Creatinine was 2.7, which is above her baseline. Blood pressure coming into the hospital was 200/92. Due to persistence of shortness of breath and abnormal chest x-ray, I am consulted. Patient reports she has adult-onset asthma. She denies allergies. She denies GERD symptoms. She states she never really smoked. She does not give a prolonged history given that she is sleepy, but the patient does not disclose significant exposures. She can walk 1 block at baseline. She is not on home oxygen. She is on Proventil and albuterol nebulizers at home. PAST MEDICAL HISTORY: Diabetes, hypertension, hyperlipidemia, kidney stones, cholecystectomy, hysterectomy, obesity, diastolic CHF. MEDICATIONS: List reviewed per electronic record. ALLERGIES: NO KNOWN DRUG ALLERGIES. SOCIAL HISTORY: No smoking. No drinking. No drugs. Patient lives at home at this time. FAMILY HISTORY: Noncontributory to this. REVIEW OF SYSTEMS GENERAL: No weight changes. OPHTHALMOLOGIC: No double vision. HEENT: No dry mouth. ENDOCRINE: No hypothalamic disorder. PULMONARY: No hemoptysis. CARDIAC: No heart tumors known. GI: With no constipation. : No blood in the urine. DERMATOLOGIC: No rash. PSYCHIATRIC: No depression. PHYSICAL EXAMINATION VITALS: Currently afebrile. Vital signs now stable and better as reviewed per electronic record. GENERAL: No acute distress, but she looks very short of breath. She is sleeping sitting up in a chair. Increased work of breathing. HEENT: Normocephalic and atraumatic. NECK: Supple. Throat midline. LUNGS: Bilateral air entry. Mild wheezes. Moderate air entry. Few rhonchi. CARDIOVASCULAR: S1 and S2. No murmurs, rubs or gallops. ABDOMEN: Soft, nontender and obese. EXTREMITIES: No clubbing. No cyanosis. There is 2-3+ edema. INTEGUMENT: No rash. No purpura. LABS: Creatinine 2.7, bicarbonate 25. Albumin level is 2.7. LFTs mostly unremarkable. CK 321. IMPRESSION AND PLAN 1. Shortness of breath, multifactorial. 2. Pulmonary edema. 3. Accelerated hypertension. 4. Possible pneumonia. 5. Obesity. 6. Reported adult-onset asthma. 7. Eakai-ij-zejncwx kidney injury. 8. Obesity, possible obstructive sleep apnea or pulmonary hypertension. 9. Diabetes. 10. Hypertension. 11. Hyperlipidemia. 12. Diastolic heart failure. Agree with nebulized steroids. Continue empiric antibiotics for the meantime. Control blood pressure and allow the inflammation and transudative edema to go down. Bronchodilators. Aggressive mobilization. Consideration to resume diuretics should ensue. Thank you very much, Dr. Chambers, for this consult. Please call for questions. Job#: [id number] NH
[2018-06-02 05:01] LABS: BASOPHILS % 0.2 % (0.0-1.0); EOSINOPHILS % 0.2 % (0.0-6.0); HEMATOCRIT 41.3 % (34.2-44.1); HEMOGLOBIN 12.7 g/dL (12.0-16.0); LYMPHOCYTES # (AUTO) 0.6 (1.0-3.2); LYMPHOCYTES % 9.7 % (18.0-39.1); MEAN CORPUSCULAR HEMOGLOBIN 28.5 pg (28-32); MEAN CORPUSCULAR HGB CONC 30.8 g/dL (31-35); MEAN CORPUSCULAR VOLUME 92.6 fL (81-99); MONOCYTES # (AUTO) 0.2 (0.2-0.8); MONOCYTES % 2.3 % (4.4-11.3); NEUTROPHILS # (AUTO) 5.7 (2.1-6.9); NEUTROPHILS % 87.1 % (38.7-80.0); PLATELET COUNT 247 x10e3/uL (140-360); RED BLOOD COUNT 4.46 x10e6/uL (3.6-5.1); RED CELL DISTRIBUTION WIDTH 13.6 % (11.7-14.4)
[2018-06-02 05:22] LABS: ALBUMIN 2.8 g/dL (3.5-5.0); ALBUMIN/GLOBULIN RATIO 0.7 (0.8-2.0); ANION GAP 15.6 mmol/L (8-16); CALCIUM 8.5 mg/dL (8.4-10.2); CREATININE, SERUM 2.78 mg/dL (0.57-1.11); POTASSIUM 4.6 mmol/L (3.5-5.1)
[2018-06-02] MEDS: METHYLPREDNISOLONE SOD SUCC 40 MG/ML VIAL 1ML IV SCH ×3 (06:44→21:02)
[2018-06-02] MEDS: BUDESONIDE 0.5MG/2 ML NEB INH SCH ×2 (07:00→19:40)
[2018-06-02] MEDS: INSULIN LISPRO 100 UNIT/1 ML 3ML VIAL SQ SCH ×4 (07:30→21:03)
[2018-06-02] MEDS: GLIMEPIRIDE 2 MG TAB PO SCH (08:23)
[2018-06-02] MEDS: HYDRALAZINE HCL 25 MG TAB PO SCH ×3 (08:24→21:02)
[2018-06-02] MEDS: CARVEDILOL 12.5 MG TAB PO SCH ×2 (08:24→16:50)
[2018-06-02] MEDS: ASPIRIN 81 MG ENTERIC COATED PO SCH (08:24)
[2018-06-02] MEDS: LISINOPRIL 10 MG TAB PO SCH (08:24)
[2018-06-02] MEDS ORDERED: HYDRALAZINE HCL 25 MG TAB PO SCH (11:30)
[2018-06-02] MEDS ORDERED: SODIUM CHLORIDE 0.9% 1000ML 1,000 ML IV SCH (16:45)
[2018-06-02] MEDS: LEVOFLOXACIN 500MG/D5W 100ML 100 ML IV SCH (16:50)
[2018-06-02] MEDS: ENOXAPARIN SOD INJ 40 MG/0.4 ML SYR SC SCH (16:50)
--- NOTE | 2018-06-02 17:22 | Progress Note ---
DATE: June 02, 2018 INTERNAL MEDICINE PROGRESS NOTE SUBJECTIVE: Patient is doing much better now compared to before. She was started on IV corticosteroid. Improvement has been significant today. PHYSICAL EXAM: VITAL SIGNS: Blood pressure 149/66, temperature 95.8, heart rate 60 per minute, respiratory rate is 19 per minute, oxygen saturation 98%. HEART: Shows regular rhythm. Normal S1 and S2 sounds. LUNGS: Clear bilaterally. On the BMP: Sodium 129, potassium 4.6, chloride 95, CO2 23, BUN 61, creatinine 2.78, glucose 265. On the CBC: White blood count 6.51, hemoglobin 12.7, hematocrit 41.3, platelet count 247,000. AST 18, ALT 12, total bilirubin 1.4, alkaline phosphatase 62. FINAL IMPRESSION: 1. Acute on chronic diastolic congestive heart failure, which is resolved. 2. Asthma exacerbation. 3. Acute on chronic renal failure stage 3. 4. Uncontrolled diabetes mellitus type 2 with chronic insufficiency. 5. Bilateral pneumonia. PLAN OF TREATMENT: Continue albuterol and Atrovent q.4 hours. Pulmicort 1 inhalation twice a day. Levaquin 500 mg IV once a day. Continue with monitoring blood sugar a.c. and nightly. Lovenox 40 mg subcutaneous daily for DVT prophylaxis. Lipitor 20 mg daily. Carvedilol 25 mg twice a day. Guaifenesin 200 mg q.4 hours as needed for cough. Solu-Medrol 40 mg IV q.8 hours. Glimepiride 40 mg daily. Aspirin 81 mg daily. Hydralazine 50 mg 3 times a day. Due to the worsening renal insufficiency, diuretic has been placed on hold already for 2 days and also with the DARNELL inhibitor. We are going to start her on normal saline at 75 mL an hour for careful IV hydration. Tomorrow we are going to repeat the BMP. Hopefully there should be an improvement. Job#: [id number] EV
[2018-06-02] MEDS: ATORVASTATIN 20 MG TAB PO SCH (21:02)
[2018-06-03] VITALS (8 sets, daily range): BP systolic 157–192; BP diastolic 72–87
[2018-06-03] MEDS: ALBUTEROL/IPRATROPIUM 3 ML NEB NEB SCH ×6 (03:35→23:40)
[2018-06-03 06:35] LABS: ANION GAP 16.6 mmol/L (8-16); CALCIUM 8.9 mg/dL (8.4-10.2); CREATININE, SERUM 2.55 mg/dL (0.57-1.11); POTASSIUM 4.6 mmol/L (3.5-5.1)
--- NOTE | 2018-06-03 06:48 | Diagnostic Imaging Report ---
CHEST SINGLE (PORTABLE), 06/03/2018 5:00 AM Technique: CHEST SINGLE (PORTABLE) Comparison: 05/31/2018 Clinical history: Congestive heart failure Findings: See Impression Impression: Limited by soft tissue attenuation and portable technique 1. Stable enlarged cardiomediastinal silhouette. 2. Diffuse opacities, likely a component of edema. No pleural effusion appreciated on portable technique. Signed by: Dr Ileana Trevizo MD on 06/03/2018 6:44 AM
--- NOTE | 2018-06-03 07:00 | NUR ---
Received patient sitting on recliner, call light within reach. AAOX3 to time, person, place. Respirations even and unlabored. O2 2L NC. Instructed patient to use call light for assistance. Voiced understanding. Will continue to monitor.
[2018-06-03] MEDS: BUDESONIDE 0.5MG/2 ML NEB INH SCH ×2 (07:16→20:15)
[2018-06-03] MEDS: INSULIN LISPRO 100 UNIT/1 ML 3ML VIAL SQ SCH ×4 (07:30→21:00)
[2018-06-03] MEDS: HYDRALAZINE HCL 25 MG TAB PO SCH ×3 (08:00→22:00)
[2018-06-03] MEDS: GLIMEPIRIDE 2 MG TAB PO SCH (08:00)
[2018-06-03] MEDS: ASPIRIN 81 MG ENTERIC COATED PO SCH (08:00)
[2018-06-03] MEDS: CARVEDILOL 12.5 MG TAB PO SCH ×2 (08:00→16:02)
[2018-06-03] MEDS: METHYLPREDNISOLONE SOD SUCC 40 MG/ML VIAL 1ML IV SCH ×2 (08:00→22:00)
[2018-06-03] MEDS ORDERED: HYDRALAZINE HCL 25 MG TAB PO SCH (09:00)
[2018-06-03] MEDS ORDERED: HYDRALAZINE HCL 25 MG TAB PO NR (10:30)
[2018-06-03] MEDS ORDERED: SODIUM CHLORIDE 0.9% 250ML 250 ML ONE (15:40)
[2018-06-03] MEDS: ENOXAPARIN SOD INJ 40 MG/0.4 ML SYR SC SCH (16:02)
[2018-06-03] MEDS: LEVOFLOXACIN 500MG/D5W 100ML 100 ML IV SCH (16:02)
--- NOTE | 2018-06-03 16:35 | NUR ---
Visit made by the Spiritual Care Department Pastoral Visitor, Goldy Lai. PV provided pastoral presence, hospitality, and supportive listening. Pastoral Visitor informed pt/family of the scope of Lace Machine Operator Services and availability. SANDY DUNN Supervisor Delivery Department Spiritual Care Department O: [phone] Pager: [phone] number calling from)
[2018-06-03] MEDS ORDERED: ADVIL200 MG PO (17:01)
[2018-06-03] MEDS ORDERED: IBUPROFEN 200 MG TAB PO PRN (17:15)
--- NOTE | 2018-06-03 17:41 | Progress Note ---
DATE: June 03, 2018 INTERNAL MEDICINE PROGRESS NOTE SUBJECTIVE: Patient is feeling better. PHYSICAL EXAM VITAL SIGNS: Blood pressure 173/72. Temperature 96.6. Heart rate 56 per minute. Respiratory rate 18 per minute. Oxygen saturation 98%. HEART: Regular rhythm. Normal S1, S2 sounds. LUNGS: Clear bilaterally. LABORATORY STUDIES: On the BMP, sodium 132, potassium 4.6, chloride 97, CO2 23. BUN 64, creatinine 2.56. Glucose 253. On the CBC, white blood count 6.51, hemoglobin 12.7, hematocrit 41.3, platelet count 247,000. AST 18, ALT 12, total bilirubin 1.4, alkaline phosphatase 62. FINAL IMPRESSION 1. Acute on chronic congestive heart failure. 2. Asthma exacerbation. 3. Bilateral pneumonia. 4. Acute on chronic renal insufficiency, stage 3. 5. Uncontrolled diabetes mellitus type 2 with chronic renal insufficiency. PLAN: So furosemide is on hold because of the renal insufficiency which got worse. We are going to watch the BUN and creatinine. We are going to order a BMP tomorrow. She is off IV fluid also. Continue albuterol Atrovent q.4 hours one inhalation twice a day. Levaquin 500 mg IV daily. We are going to check the oxygen on room air. to see that patient needs oxygen at home. Also she does have hypoxemia at nighttime, so she is going to need an outpatient sleep apnea status. Continue monitoring blood sugar a.c. and nightly. Lovenox 40 mg subcutaneously daily, Lipitor 20 mg daily. Continue carvedilol 25 mg twice a day. Guaifenesin 200 mg q.4 hours as needed. Solu-Medrol 40 mg IV twice a day. Glimepiride 4 mg daily. Aspirin 81 mg daily. Hydralazine has been increased to 75 mg 3 times a day because of uncontrolled hypertension. Job#: [id number] HONEY
--- NOTE | 2018-06-03 18:50 | NUR ---
Sitting on recliner. No s/s of acute distress noted. Report to be given to oncoming nurse.
--- NOTE | 2018-06-03 19:30 | NUR ---
Patient received sitting in recliner chair. AAO x 3. No complaints of pain. Respirations even and non-labored. Patient instructed to call for assistance when needed. Call light within reach.
--- NOTE | 2018-06-03 20:53 | Progress Note ---
DATE: June 03, 2018 PULMONARY MEDICINE PROGRESS NOTE SUBJECTIVE: Ms. Acosta was seen and examined at bedside. She continues with slow progress. Two liters per minute via nasal cannula. An 80% oxygen saturation in her sleep was noted. Patient able to walk, although she has very low functional endurance. She is eating. Stop IV fluid. REVIEW OF SYSTEMS: No emesis, no rash. OBJECTIVE VITAL SIGNS: Afebrile. Vital signs noted per electronic record. GENERAL: In no acute distress, alert and calm. HEENT: Normocephalic, atraumatic. NECK: Supple. Throat midline. LUNGS: Bilateral air entry, few rhonchi, good air entry, decreased breath sounds at the bases though. CARDIOVASCULAR: S1, S2. No murmurs, rubs, or gallops. ABDOMEN: Soft, nontender. EXTREMITIES: No clubbing, no cyanosis. There is still 2+ edema, although minimally better. INTEGUMENT: No rash. No purpura. LABS: Potassium 4.6, BUN 64, creatinine 3.6. White count 7. IMPRESSION AND PLAN 1. Pulmonary edema. 2. Possible pneumonia. 3. Uoqqs-af-oruyjgw kidney failure. 4. Diabetes. 5. Hypertension. 6. Weakness/low functional endurance At this time, wish to continue general diuretics. Wish to get a followup kidney function and ensure to avoid kidney injury. Continue supplemental oxygen and wean her down as needed. Patient will still benefit from outpatient sleep study. Continue to control blood pressure as feasible. Job#: [id number] ALISON
[2018-06-03] MEDS: ATORVASTATIN 20 MG TAB PO SCH (22:00)
[2018-06-04 00:38] VITALS: BP 164/74
[2018-06-04] MEDS: ALBUTEROL/IPRATROPIUM 3 ML NEB NEB SCH ×6 (03:00→23:00)
--- NOTE | 2018-06-04 05:46 | NUR ---
Patient's BP elevated (178/80). Dr. Azevedo paged. Awaiting call back.
[2018-06-04 06:05] LABS: ALBUMIN 2.7 g/dL (3.5-5.0); ALBUMIN/GLOBULIN RATIO 0.7 (0.8-2.0); ANION GAP 14.6 mmol/L (8-16); CALCIUM 9.1 mg/dL (8.4-10.2); CREATININE, SERUM 2.55 mg/dL (0.57-1.11); POTASSIUM 4.6 mmol/L (3.5-5.1)
--- NOTE | 2018-06-04 06:11 | NUR ---
Dr. Azevedo called back stating nurse should monitor the patient as patient is asymptomatic. No new order received.
--- NOTE | 2018-06-04 06:42 | Diagnostic Imaging Report ---
CHEST SINGLE (PORTABLE), 06/04/2018 5:00 AM Technique: CHEST SINGLE (PORTABLE) Comparison: Previous day Clinical history: Effusion Findings: See Impression Impression: Limited by soft tissue attenuation and portable technique 1. Stable enlarged cardiomediastinal silhouette. 2. Diffuse opacities, likely a component of edema. No pleural effusion appreciated on portable technique. Signed by: Dr Ileana Trevizo MD on 06/04/2018 6:39 AM
[2018-06-04] MEDS: BUDESONIDE 0.5MG/2 ML NEB INH SCH ×2 (07:00→19:00)
--- NOTE | 2018-06-04 07:11 | NUR ---
Shift report given to oncoming nurse.
--- NOTE | 2018-06-04 07:15 | NUR ---
PT ALERT RESP EVEN AND UNLABORED AT THIS TIME, PT SITTING IN RECLINER, NO DISTRESS NOTED , PT ABLE TO MAKE NEEDS KNOWN, NO C/O PAIN AT THIS TIME. CALL LIGHT IN REACH.
[2018-06-04 08:54] VITALS: BP 168/78
[2018-06-04] MEDS: ASPIRIN 81 MG ENTERIC COATED PO SCH (08:55)
[2018-06-04] MEDS: HYDRALAZINE HCL 25 MG TAB PO SCH ×3 (08:55→21:20)
[2018-06-04] MEDS: METHYLPREDNISOLONE SOD SUCC 40 MG/ML VIAL 1ML IV SCH (08:55)
[2018-06-04] MEDS: GLIMEPIRIDE 2 MG TAB PO SCH (08:55)
[2018-06-04] MEDS: CARVEDILOL 12.5 MG TAB PO SCH ×2 (08:56→17:04)
[2018-06-04] MEDS: INSULIN LISPRO 100 UNIT/1 ML 3ML VIAL SQ SCH ×4 (09:06→21:00)
[2018-06-04 12:05] VITALS: BP 186/84
[2018-06-04] MEDS ORDERED: ACETAMINOPHEN 325 MG TAB PO PRN (14:00)
[2018-06-04] MEDS: SITAGLIPTIN 100 MG TAB PO SCH (14:00)
[2018-06-04] MEDS ORDERED: FUROSEMIDE INJ 10 MG/ML 4 ML VIAL IV ONE (15:00)
--- NOTE | 2018-06-04 15:21 | Progress Note ---
DATE: June 04, 2018 PULMONARY MEDICINE PROGRESS NOTE SUBJECTIVE: Ms. Acosta was seen and examined at bedside. Patient continues to have slow progress. She is having more energy and more functional endurance; however, patient with 98% oxygen saturation on 2 liters per minute nasal cannula oxygen. Chest x-ray with stable pattern of pneumonitis versus overload. REVIEW OF SYSTEMS: No headaches, no GI bleed. OBJECTIVE VITAL SIGNS: Afebrile. Vital signs noted per electronic record. GENERAL: In no acute distress, alert and calm. HEENT: Normocephalic, atraumatic. NECK: Supple. Throat midline. LUNGS: Bilateral air entry, few rhonchi. CARDIOVASCULAR: S1, S2. No murmurs, rubs, or gallops. ABDOMEN: Soft, nontender. EXTREMITIES: No clubbing, no cyanosis. There is still 2 to 3+ edema. INTEGUMENT: No rash. No purpura. LABS: BUN 78, creatinine 2.6, bicarbonate 24. White count 6, hematocrit 41, platelets 247. IMPRESSION AND PLAN 1. Abnormal chest x-ray, suggestive of pulmonary edema. 2. Abdominal chest x-ray, less likely pneumonia, but not ruled out. 3. Obesity. 4. Kpshg-cq-rhywvno kidney failure. 5. Suspected obstructive sleep apnea and suspected pulmonary hypertension. 6. Hypertension, hyperlipidemia, and adult-onset asthma reported. Keeps on diuretic today. Continue to offload the legs for the swelling. Stockings were requested and nurse will see if they will be able to fit her large leg caliber. Continue oxygen per protocol. Continue to mobilize the patient. Job#: [id number] ALISON
[2018-06-04 16:45] VITALS: BP 157/70
[2018-06-04] MEDS: FUROSEMIDE INJ 10 MG/ML 4 ML VIAL IV SCH (17:04)
[2018-06-04] MEDS: ENOXAPARIN 30 MG/0.3 ML SYR SC SCH (17:04)
[2018-06-04] MEDS: LEVOFLOXACIN 500MG/D5W 100ML 100 ML IV SCH (17:07)
--- NOTE | 2018-06-04 19:29 | Consultation ---
DATE OF CONSULTATION: June 04, 2018 ATTENDING PHYSICIAN: Dr. Chambers. REASON FOR CONSULTATION: Tufek-cr-guxsxpp kidney injury stage 3. HISTORY OF PRESENT ILLNESS: Patient is a very pleasant 63-year-old female with past medical history of diabetes type 2, hypertension, hyperlipidemia, diastolic CHF, morbid obesity, chronic kidney disease stage 3, baseline creatinine around 1.5 to 1.6 back in January 2018, was admitted with shortness of breath. Patient was seen by pulmonary, Dr. Menon and started on antibiotics. Chest x-ray on admission showed cardiomegaly with pulmonary edema correlate for underlying pneumonia. Patient had a renal ultrasound done that showed the right kidney was 9.5 cm and the left kidney was 11.2 cm. Patient's symptoms did not get better. Had a repeat chest x-ray done today that showed bilateral diffuse opacities. Patient also complaints of bilateral lower extremity swelling. Patient was started on IV Lasix today. On admission at this time on May 30, 2018, creatinine was 1.58 that went up to 2.7 and for the last 2 days has been running at 2.55. Patient denies having any nausea, vomiting, or diarrhea. No history of any NSAID. PAST MEDICAL HISTORY: As above. PAST SURGICAL HISTORY: Cholecystectomy, hysterectomy. ALLERGIES: NO KNOWN DRUG ALLERGIES. SOCIAL HISTORY: No history of smoking, alcohol, or intravenous drug abuse. FAMILY HISTORY: No history of any kidney disease. MEDICATIONS: Currently, the patient is on levofloxacin, Lasix 40 mg IV b.i.d., Lovenox, carvedilol, insulin, hydralazine, Januvia, aspirin, glimepiride, Lipitor, Robitussin. REVIEW OF SYSTEMS GENERAL: No fatigue. No fever . No chills. HEENT: No headache or blurry vision. NECK: No dysphagia. CARDIOVASCULAR: No chest pain. No PND. No orthopnea. RESPIRATORY: Positive shortness of breath. Positive cough. No hemoptysis. GI: No nausea, vomiting, diarrhea, constipation, abdominal pain, hematemesis, or melena. GENITOURINARY: No urinary urgency, frequency, or hesitancy. MUSCULOSKELETAL: Positive ankle swelling. NEUROLOGICAL: No numbness, weakness, or tingling. SKIN: No new rash. PHYSICAL EXAMINATION VITAL SIGNS: Blood pressure 157/70, pulse of 52, temperature 96.4, respirations 18, 99% on room air. GENERAL: Awake, alert and oriented x3, very pleasant, not in apparent distress. HEENT: PERRLA. Extraocular muscles intact. NECK: No elevated JVD. HEART: S1, S2. LUNGS: Decreased breath sounds at the bases. ABDOMEN: Soft. Bowel sounds positive. EXTREMITIES: Positive 1 mm bilateral lower extremity edema. NEUROLOGICAL: No focal deficit. LABS: Sodium 134, potassium 4.6, chloride 100, CO2 of 24, BUN 78, creatinine 2.55, glucose 235, calcium 9.1, albumin is 2.7. BNP was 534. White count 6.5, hemoglobin 12.7, platelet count is 247. Throat culture negative. Blood cultures negative. Chest x-ray today and renal ultrasound as per HPI. ASSESSMENT AND PLAN 1. Vulor-vr-gqtizbt kidney disease stage 3. Patient likely has underlying chronic kidney disease from hypertension and diabetes. This acute worsening is likely secondary to possible acute diastolic dysfunction. Agree with IV Lasix. Avoid all nephrotoxic medications. Repeat the lab in the morning. Check urine protein creatinine ratio. 2. Edema, volume overload. Lasix 40 mg IV q.12 hours. 3. Diabetes type 2 per primary team. 4. Hypertension. Monitor it for now with IV Lasix, may need to adjust the medication. 5. Hyperlipidemia. No acute issues. I want to thank Dr. Chambers for the consult. We will follow the patient with you. Job#: [id number] RTY
--- NOTE | 2018-06-04 19:58 | NUR ---
REPORT GIVEN TO ONCOMING NURSE, FOR CONTINUED CARE.
[2018-06-04 20:00] VITALS: BP 155/70
--- NOTE | 2018-06-04 20:17 | NUR ---
Patient received sitting in recliner chair. AAO x 3. Patient had no c/o pain. Respirations even and non-labored. Patient instructed to call for assistance when needed. Call light within reach.
[2018-06-04] MEDS: ATORVASTATIN 20 MG TAB PO SCH (21:20)
[2018-06-04 22:00] VITALS: BP 155/70
[2018-06-05 00:10] VITALS: BP 126/60
[2018-06-05] MEDS: ALBUTEROL/IPRATROPIUM 3 ML NEB NEB SCH ×6 (03:00→23:28)
[2018-06-05 04:15] VITALS: BP 140/65
[2018-06-05 05:57] LABS: BASOPHILS % 0.1 % (0.0-1.0); HEMATOCRIT 44.5 % (34.2-44.1); HEMOGLOBIN 14.1 g/dL (12.0-16.0); LYMPHOCYTES % 7.7 % (18.0-39.1); MEAN CORPUSCULAR HEMOGLOBIN 28.9 pg (28-32); MEAN CORPUSCULAR HGB CONC 31.7 g/dL (31-35); MEAN CORPUSCULAR VOLUME 91.2 fL (81-99); MONOCYTES # (AUTO) 0.9 (0.2-0.8); MONOCYTES % 6.9 % (4.4-11.3); NEUTROPHILS # (AUTO) 11.5 (2.1-6.9); NEUTROPHILS % 84.6 % (38.7-80.0); PLATELET COUNT 310 x10e3/uL (140-360); RED BLOOD COUNT 4.88 x10e6/uL (3.6-5.1); RED CELL DISTRIBUTION WIDTH 13.4 % (11.7-14.4)
[2018-06-05 06:17] LABS: ALBUMIN 2.6 g/dL (3.5-5.0); ALBUMIN/GLOBULIN RATIO 0.7 (0.8-2.0); ANION GAP 15.7 mmol/L (8-16); CALCIUM 9.1 mg/dL (8.4-10.2); CREATININE, SERUM 2.6 mg/dL (0.57-1.11); POTASSIUM 4.7 mmol/L (3.5-5.1)
[2018-06-05] MEDS: BUDESONIDE 0.5MG/2 ML NEB INH SCH ×2 (07:00→19:47)
[2018-06-05 08:00] VITALS: BP 129/63
[2018-06-05] MEDS: INSULIN LISPRO 100 UNIT/1 ML 3ML VIAL SQ SCH ×4 (09:26→21:00)
[2018-06-05] MEDS: GLIMEPIRIDE 2 MG TAB PO SCH (09:37)
[2018-06-05] MEDS: FUROSEMIDE INJ 10 MG/ML 4 ML VIAL IV SCH (09:37)
[2018-06-05] MEDS: ASPIRIN 81 MG ENTERIC COATED PO SCH (09:37)
[2018-06-05] MEDS: HYDRALAZINE HCL 25 MG TAB PO SCH ×3 (09:37→21:35)
[2018-06-05] MEDS: CARVEDILOL 12.5 MG TAB PO SCH ×2 (09:38→18:02)
[2018-06-05] MEDS: SITAGLIPTIN 100 MG TAB PO SCH (09:38)
[2018-06-05 12:00] VITALS: BP 150/70
[2018-06-05] MEDS: CEFEPIME 1GM/NS 0.9% 50 ML 50 ML IV SCH (14:30)
[2018-06-05] MEDS: BENZONATATE 100 MG CAP PO SCH ×2 (15:00→21:35)
[2018-06-05 16:00] VITALS: BP 120/55
--- NOTE | 2018-06-05 16:20 | Progress Note ---
DATE: June 05, 2018 PULMONARY MEDICINE PROGRESS NOTE SUBJECTIVE: Ms. Acosta was seen and examined at bedside. She continues with no significant worsening, but still in bad shape to her lung, still with a few small rhonchi. There is better function or endurance in the floor but not improved compared to yesterday. Patent still has 2 to 3+ leg edema. She is eating. REVIEW OF SYSTEMS: No headaches, no bleeding. OBJECTIVE VITAL SIGNS: Afebrile. Vital signs noted per electronic record. GENERAL: In no acute distress, alert and calm. HEENT: Normocephalic, atraumatic. NECK: Supple. Throat midline. LUNGS: Bilateral air entry, few rhonchi. No wheezes. CARDIOVASCULAR: S1, S2. No murmurs, rubs, or gallops. ABDOMEN: Soft, nontender. EXTREMITIES: No clubbing, no cyanosis. There is stable leg edema. INTEGUMENT: No rash. No purpura. LABS: BUN 38, creatinine 2.6, bicarbonate 25, potassium 4.7. White count 14, hematocrit 44. IMPRESSION AND PLAN 1. Pulmonary edema. 2. Possible pneumonia. 3. Obesity, suggestive of obstructive sleep apnea and possible obesity hypoventilation syndrome. 4. Flvlh-bn-onfnmvs kidney disease. 5. Hypertension, hyperlipidemia. the IV Lasix. Follow up electrolytes tomorrow. Continue off setting her limbs to gravity to decrease edema. Continue socks or other stockings that she can tolerate. Continue diet. Follow along closely. Repeat the white count soon given the increase today. This may have been from steroids, which are stopped yesterday and will need to followup. Job#: [id number] JEREMI
[2018-06-05] MEDS ORDERED: FUROSEMIDE 40 MG TAB PO SCH (18:00)
[2018-06-05] MEDS: ENOXAPARIN 30 MG/0.3 ML SYR SC SCH (18:01)
[2018-06-05] MEDS: LEVOFLOXACIN 500MG/D5W 100ML 100 ML IV SCH (18:01)
[2018-06-05] MEDS: GUAIFENESIN 600MG/DEXTROMETHORPHAN 30MG TABSR PO SCH (18:01)
--- NOTE | 2018-06-05 19:26 | NUR ---
REPORT GIVEN TO ONCOMING NURSE, FOR CONTINUED CARE.
[2018-06-05] MEDS ORDERED: BUMETANIDE INJ 0.25MG/ML 4ML VIAL IV ONE (19:30)
[2018-06-05 21:07] VITALS: BP 135/70
[2018-06-05] MEDS: ATORVASTATIN 20 MG TAB PO SCH (21:35)
[2018-06-06] VITALS (9 sets, daily range): BP systolic 124–133; BP diastolic 59–67
--- NOTE | 2018-06-06 01:49 | NUR ---
Patient complained of cramps /tightness to lower both feet, tingling in hands and nausea s/p administration of Bumex. Dr. Jordy Chicas notified. Order received to discontinue Bumex and administer Zofran 4mg IV to patient .
[2018-06-06] MEDS: ONDANSETRON HCL INJ 2MG/ML 2ML 2 MG/ML VIAL IV PRN (02:44)
[2018-06-06] MEDS: ALBUTEROL/IPRATROPIUM 3 ML NEB NEB SCH ×6 (03:22→23:50)
[2018-06-06 05:07] LABS: EOSINOPHILS # (AUTO) 0.1 (0.0-0.4); EOSINOPHILS % 0.9 % (0.0-6.0); HEMATOCRIT 39.6 % (34.2-44.1); HEMOGLOBIN 13.6 g/dL (12.0-16.0); LYMPHOCYTES # (AUTO) 1.9 (1.0-3.2); MEAN CORPUSCULAR HEMOGLOBIN 30.5 pg (28-32); MEAN CORPUSCULAR HGB CONC 34.3 g/dL (31-35); MEAN CORPUSCULAR VOLUME 88.8 fL (81-99); MONOCYTES # (AUTO) 1.5 (0.2-0.8); MONOCYTES % 13.8 % (4.4-11.3); NEUTROPHILS # (AUTO) 7.5 (2.1-6.9); NEUTROPHILS % 67.4 % (38.7-80.0); PLATELET COUNT 295 x10e3/uL (140-360); RED BLOOD COUNT 4.46 x10e6/uL (3.6-5.1); RED CELL DISTRIBUTION WIDTH 13.6 % (11.7-14.4)
[2018-06-06 05:24] LABS: ALBUMIN 2.7 g/dL (3.5-5.0); ALBUMIN/GLOBULIN RATIO 0.8 (0.8-2.0); ANION GAP 14.4 mmol/L (8-16); CALCIUM 8.8 mg/dL (8.4-10.2); CREATININE, SERUM 2.5 mg/dL (0.57-1.11); POTASSIUM 4.4 mmol/L (3.5-5.1)
[2018-06-06] MEDS: BUDESONIDE 0.5MG/2 ML NEB INH SCH ×2 (07:00→20:05)
--- NOTE | 2018-06-06 07:26 | NUR ---
Walking rounds done. Shift report given to oncoming nurse.
[2018-06-06] MEDS: INSULIN LISPRO 100 UNIT/1 ML 3ML VIAL SQ SCH ×4 (07:30→20:39)
[2018-06-06] MEDS: ASPIRIN 81 MG ENTERIC COATED PO SCH (08:30)
[2018-06-06] MEDS: HYDRALAZINE HCL 25 MG TAB PO SCH ×3 (08:30→21:00)
[2018-06-06] MEDS: GLIMEPIRIDE 2 MG TAB PO SCH (08:30)
[2018-06-06] MEDS: GUAIFENESIN 600MG/DEXTROMETHORPHAN 30MG TABSR PO SCH ×2 (09:00→17:43)
[2018-06-06] MEDS: CARVEDILOL 12.5 MG TAB PO SCH ×2 (09:00→17:00)
[2018-06-06] MEDS: SITAGLIPTIN 100 MG TAB PO SCH (09:00)
[2018-06-06] MEDS: FUROSEMIDE 40 MG TAB PO SCH (09:00)
[2018-06-06] MEDS: BENZONATATE 100 MG CAP PO SCH ×3 (09:00→21:00)
[2018-06-06] MEDS ORDERED: FUROSEMIDE INJ 10 MG/ML 4 ML VIAL IV ONE (09:40)
--- NOTE | 2018-06-06 13:23 | Progress Note ---
DATE: June 06, 2018 PULMONARY MEDICINE PROGRESS NOTE SUBJECTIVE: Ms. Acosta was seen and examined at bedside. She is very tired today. She is additionally sleepy. However, the swelling in the leg has gone down. She was given a dose of diuretic, but she did not feel very good after. Patient at this time sitting up once again. REVIEW OF SYSTEMS: No headaches. No GI bleed. OBJECTIVE VITALS: Afebrile. Vital signs noted per electronic record. GENERAL: In no acute distress. Alert and calm. Looks tired. HEENT: Normocephalic and atraumatic. NECK: Supple. Throat midline. LUNGS: Bilateral air entry. Decreased breath sounds throughout. Decreased effort. CARDIOVASCULAR: S1 and S2. No murmurs, rubs or gallops. ABDOMEN: Soft and nontender. EXTREMITIES: No clubbing. No cyanosis. There is 2+ leg edema, improved from yesterday. INTEGUMENT: No rash. No purpura. LABS: BUN 83, creatinine 2.5. White count 11, hematocrit 40, and platelets 295,000. IMPRESSION AND PLAN 1. Fluid overload and pulmonary edema. 2. Cuvax-rw-skrvykg kidney failure. 3. Obesity. 4. Presumed obstructive sleep apnea, possible obstructive hypoventilation syndrome. 5. Pneumonia. Continue antibiotics. Continue diuresis per renal. Supportive care and cardiac medications. Follow up kidneys and electrolytes. Repeat chest x-ray in the morning. Job#: [id number] LESTER
[2018-06-06] MEDS: CEFEPIME 1GM/NS 0.9% 50 ML 50 ML IV SCH (14:23)
--- NOTE | 2018-06-06 15:30 | NUR ---
Patient voiced bilateral feet swelling improved. Call holland within reach.
[2018-06-06] MEDS: ENOXAPARIN 30 MG/0.3 ML SYR SC SCH (17:43)
[2018-06-06] MEDS: LEVOFLOXACIN 500MG/D5W 100ML 100 ML IV SCH (17:44)
--- NOTE | 2018-06-06 18:21 | Progress Note ---
DATE: June 06, 2018 INTERNAL MEDICINE PROGRESS NOTE SUBJECTIVE: Patient is still not feeling well. Feeling weak today. PHYSICAL EXAM: VITAL SIGNS: Blood pressure 132/64. Temperature 95.7. Heart rate 52 per minute. Respiratory rate 18 per minute. Oxygen saturation is 99%. HEART: Shows regular rhythm. Normal S1 and S2 sounds. LUNGS: Show minimal wheezing. No crackles. ABDOMEN: Soft. EXTREMITIES: Show 2+ bilateral pedal edema. On the BMP: Sodium 140, potassium 4.4, chloride 102, CO2 28, BUN 86 creatinine 2.50, glucose 95. On the CBC: White blood count 11,000, hemoglobin 13.6, hematocrit 39.6, platelet count 285,000. AST 20, ALT 14, total bilirubin 1.0, alkaline phosphatase 50. FINAL IMPRESSION: 1. Acute on chronic diastolic congestive heart failure. 2. Bilateral pneumonia. 3. Acute on chronic renal insufficiency stage 2 to 3. 4. Uncontrolled diabetes mellitus type 2 with chronic renal insufficiency. 5. Hypertension with chronic renal insufficiency. PLAN OF TREATMENT: Bumex is going to be started IV by easement man twice a day. Continue albuterol and Atrovent at q.4 hours. Budesonide 1 inhalation twice a day. Levaquin 500 mg IV once a day. Cefepime 1 gram IV q.24 hours. Glimepiride 4 mg daily. Continue Januvia 50 mg daily. Continue monitoring blood sugar a.c. and nightly. Continue hydralazine 75 mg 3 times a day. Tessalon 100 mg 3 times a day as needed. Lipitor 20 mg daily. Tylenol 650 mg q.4 hours as needed. Carvedilol 25 mg twice a day. Aspirin 81 mg daily. Lovenox 30 mg subcutaneously once a day. Zofran 4 mg p.o. q.6 hours as needed. Also we are going to order a CBC and a BMP. White blood count is elevated, most likely secondary to the corticosteroids that the patient received before. Continue monitoring the blood sugar. Continue monitoring BUN and creatinine. As I said, Bumex is going to be started because of concerns about volume overload. Job#: [id number] EV
--- NOTE | 2018-06-06 19:08 | NUR ---
Walking rounds and report given.
[2018-06-06] MEDS: ATORVASTATIN 20 MG TAB PO SCH (21:00)
[2018-06-07] VITALS (8 sets, daily range): BP systolic 112–150; BP diastolic 53–67
[2018-06-07] MEDS: ALBUTEROL/IPRATROPIUM 3 ML NEB NEB SCH ×6 (03:00→23:00)
--- NOTE | 2018-06-07 05:41 | Diagnostic Imaging Report ---
EXAM: XR CHEST 1 VIEW DATE: 06/07/2018 5:00 AM INDICATION: CHF COMPARISON: 06/04/2018, no report available FINDINGS: Lines and Tubes: None Heart and Mediastinum: The heart is moderately enlarged. Hilar prominence corresponds with prominent pulmonary arteries better seen 01/15/[address], suggesting pulmonary hypertension. Lungs and Pleura: Moderate edema. Bones and Soft Tissues: No acute findings. IMPRESSION: 1. Cardiomegaly with moderate edema. Superimposed pneumonia possible. 2. Dilated pulmonary arteries suggesting pulmonary hypertension. Signed by: Dr. Jethro Kendall MD on 06/07/2018 5:37 AM
[2018-06-07 06:04] LABS: ANION GAP 14.5 mmol/L (8-16); CALCIUM 8.7 mg/dL (8.4-10.2); CREATININE, SERUM 2.68 mg/dL (0.57-1.11); MAGNESIUM 2.4 MG/DL (1.3-2.1); POTASSIUM 4.5 mmol/L (3.5-5.1)
[2018-06-07 06:25] LABS: BASOPHILS % 0.1 % (0.0-1.0); EOSINOPHILS # (AUTO) 0.3 (0.0-0.4); EOSINOPHILS % 3.1 % (0.0-6.0); HEMATOCRIT 43.6 % (34.2-44.1); HEMOGLOBIN 13.3 g/dL (12.0-16.0); LYMPHOCYTES # (AUTO) 1.7 (1.0-3.2); MEAN CORPUSCULAR HEMOGLOBIN 28.5 pg (28-32); MEAN CORPUSCULAR HGB CONC 30.5 g/dL (31-35); MEAN CORPUSCULAR VOLUME 93.4 fL (81-99); MONOCYTES # (AUTO) 1.1 (0.2-0.8); MONOCYTES % 12.6 % (4.4-11.3); NEUTROPHILS # (AUTO) 5.7 (2.1-6.9); NEUTROPHILS % 64.4 % (38.7-80.0); PLATELET COUNT 300 x10e3/uL (140-360); RED BLOOD COUNT 4.67 x10e6/uL (3.6-5.1); RED CELL DISTRIBUTION WIDTH 13.7 % (11.7-14.4)
--- NOTE | 2018-06-07 06:50 | NUR ---
Patient is awake and alert sitting up in the bed without any complaints voiced at this time. Patient was instructed to call for assistance as needed and verbalized understanding. Patient encouraged to elevate lower extremities as such as possible. Call holland within reach.
[2018-06-07] MEDS: GLIMEPIRIDE 2 MG TAB PO SCH (07:30)
[2018-06-07] MEDS: BUDESONIDE 0.5MG/2 ML NEB INH SCH ×2 (07:30→19:00)
[2018-06-07] MEDS: ASPIRIN 81 MG ENTERIC COATED PO SCH (08:17)
[2018-06-07] MEDS: HYDRALAZINE HCL 25 MG TAB PO SCH ×3 (08:17→20:30)
[2018-06-07] MEDS: SITAGLIPTIN 100 MG TAB PO SCH (08:17)
[2018-06-07] MEDS: FUROSEMIDE 40 MG TAB PO SCH (08:17)
[2018-06-07] MEDS: GUAIFENESIN 600MG/DEXTROMETHORPHAN 30MG TABSR PO SCH ×2 (08:18→17:33)
[2018-06-07] MEDS: BENZONATATE 100 MG CAP PO SCH ×3 (08:18→20:29)
[2018-06-07] MEDS: INSULIN LISPRO 100 UNIT/1 ML 3ML VIAL SQ SCH ×4 (08:30→21:00)
--- NOTE | 2018-06-07 10:36 | NUR ---
ELVIRA asked Dr. Chambers regarding DC plan. He stated IV abx, wound care. Pt not ready for SNF yet. ELVIRA informed him that auth for SNF could take 2-3 days so we can initiate it if he plans to transfer pt to a SNF. He stated "not ready yet"
--- NOTE | 2018-06-07 14:05 | Progress Note ---
DATE: June 07, 2018 PULMONARY MEDICINE PROGRESS NOTE SUBJECTIVE: Ms. Acosta was seen and examined at bedside. She continues to have slow progress. She has slow functional endurance today. Low energy. Edema in her legs is still slightly better. She is not eating too much. REVIEW OF SYSTEMS: No headaches. No bleeding. OBJECTIVE VITALS: Afebrile. Vital signs noted per electronic record. GENERAL: No acute distress. Alert and calm. HEENT: Normocephalic and atraumatic. NECK: Supple. Throat midline. LUNGS: Bilateral air entry. Few rhonchi, rare crackles. CARDIOVASCULAR: S1 and S2. No murmurs, rubs or gallops. ABDOMEN: Soft and nontender. EXTREMITIES: No clubbing. No cyanosis. There is 2+ edema throughout. INTEGUMENT: No rash. Skin is intact. LABS: Potassium 4.5, creatinine 2.7. IMPRESSION AND PLAN 1. Pneumonia. 2. Pulmonary edema. 3. Edema. 4. Uevnh-qh-ddblqjf kidney failure. 5. Weakness. Continue physical therapy. Continue to mobilize the patient and get her up out of bed as possible. Continue titrating down oxygen as feasible. Diuretics ongoing. Continue antibiotics for pneumonia. Job#: [id number] LESTER
[2018-06-07] MEDS: CEFEPIME 1GM/NS 0.9% 50 ML 50 ML IV SCH (15:04)
--- NOTE | 2018-06-07 15:34 | NUR ---
CASE MANAGEMENT INITIAL ASSESSMENT Senior Teller to bedside to discuss plan of care with patient/family. CM/SW role and care transitions discussed. Anticipated discharge plan discussed along with duration of care. CM/SW discussed patients right to make decisions in care. CM/SW work hours given. Patient lives: with her oldest son Stuart Admit/Transfer: thru ED Hospital/ER visits since last admit: was last hospitalized in Jan 2018 POA/Emergency contact: Gurpreet Acosta [phone] Current/Previous Home Health: none PCP/Follow-up Care: Dr. Ziggy Dick; states she follows up frequently with her PCP. informed her of importance of following up within 7 days of discharge Current/Previous DME: none Medications (referring to index hospitalization or the first time you were in the hospital) a. Were changes made in your medications when you were in the hospital on [date of index hospitalization]? no b. Did you understand the changes? n/a c. Were you able to obtain your new medications right away? n/a d. Were you able to take your medications like the doctor wanted you to? yes e. Did the hospital give you an accurate, easy to understand list of medications when you left? yes Scale of 1-10 how comfortable does patient feel with disease management in outpatient settin Other Services: none Employment Status: [employer] Areas of Concerns: CHF, COPD Referral Needs: may need SNF vs HH Education Needs: medications, CHF, COPD IMM/BRANDT given and signed (if applicable): none at this time Goal for discharge: to return home independently CM/SW left business card at the bedside with contact information. Name and number was also written on the patients whiteboard. Patient verbalized understanding of discussion. CM will follow-up with ongoing discharge and transition of care needs.
[2018-06-07] MEDS: CARVEDILOL 12.5 MG TAB PO SCH (17:00)
[2018-06-07] MEDS: ENOXAPARIN 30 MG/0.3 ML SYR SC SCH (17:33)
[2018-06-07] MEDS: LEVOFLOXACIN 500MG/D5W 100ML 100 ML IV SCH (17:33)
--- NOTE | 2018-06-07 18:00 | NUR ---
Dr. Campbell at the bedside making rounds. He discussed plan of care with patient.
--- NOTE | 2018-06-07 19:24 | Progress Note ---
DATE: June 07, 2018 INTERNAL MEDICINE PROGRESS NOTE SUBJECTIVE: Patient is sleepy today. No significant complaints. No shortness of breath. PHYSICAL EXAMINATION: VITAL SIGNS: Blood pressure 150/66, temperature 96.5, heart rate 56 per minute, respiratory rate 19 per minute, oxygen saturation 96%. HEART: Shows regular rhythm. Normal S1 and S2 sounds. LUNGS: Clear bilaterally, but diminished. ABDOMEN: Soft. EXTREMITIES: Showed 2+ bilateral pedal edema. On the BMP, sodium 139, potassium 4.5, chloride 102, CO2 27, BUN 84, creatinine 2.66, glucose 159. On the CBC, white blood count 8.78, hemoglobin 13.3, hematocrit 43.6, platelet count 300,000. AST 20, ALT 14, total bilirubin 1.0, alkaline phosphatase 50. FINAL IMPRESSION: 1. Chronic obstructive pulmonary disease exacerbation. 2. Kglyr-bo-aoboxtd diastolic congestive heart failure. 3. Hypertension. 4. Anasarca. 5. Morbid obesity. 6. History of obstructive sleep apnea. 7. Uncontrolled diabetes mellitus type 2 with chronic renal insufficiency. PLAN OF TREATMENT: Continue albuterol and Atrovent q.4h., budesonide twice a day, cefepime 1 g IV q.24h., Levaquin 500 mg IV daily. Continue monitoring blood sugar a.c. and at bedtime. Continue diabetic and renal diet. Continue hydralazine 75 mg 3 times a day, Tessalon 100 mg 3 times a day, carvedilol 12.5 mg twice a day, Tylenol 650 mg q.6h. as needed, 2 teaspoons twice a day as needed, Lipitor 20 mg daily, aspirin 81 mg daily, Lovenox 30 mg subcutaneously daily, Zofran 4 mg IV q.6h. as needed, glimepiride 4 mg daily, Januvia 50 mg daily, furosemide 40 mg daily, Bumex 2 mg twice a day. We are going to have BMP tomorrow. Continue physical and occupational therapy. Job#: [id number]
[2018-06-07] MEDS: ATORVASTATIN 20 MG TAB PO SCH (20:29)
[2018-06-07] MEDS: FUROSEMIDE INJ 10 MG/ML 4 ML VIAL IV SCH (20:29)
[2018-06-08 00:25] VITALS: BP 124/58
[2018-06-08] MEDS: ALBUTEROL/IPRATROPIUM 3 ML NEB NEB SCH ×6 (03:00→23:00)
[2018-06-08 05:29] LABS: BASOPHILS % 0.2 % (0.0-1.0); EOSINOPHILS # (AUTO) 0.3 (0.0-0.4); EOSINOPHILS % 3.7 % (0.0-6.0); HEMOGLOBIN 13.3 g/dL (12.0-16.0); LYMPHOCYTES # (AUTO) 1.6 (1.0-3.2); MEAN CORPUSCULAR HEMOGLOBIN 28.9 pg (28-32); MEAN CORPUSCULAR HGB CONC 30.9 g/dL (31-35); MEAN CORPUSCULAR VOLUME 93.5 fL (81-99); MONOCYTES # (AUTO) 1.1 (0.2-0.8); MONOCYTES % 12.8 % (4.4-11.3); NEUTROPHILS # (AUTO) 5.6 (2.1-6.9); NEUTROPHILS % 64.5 % (38.7-80.0); PLATELET COUNT 300 x10e3/uL (140-360); RED CELL DISTRIBUTION WIDTH 13.7 % (11.7-14.4)
[2018-06-08 05:43] LABS: ANION GAP 14.3 mmol/L (8-16); CALCIUM 8.6 mg/dL (8.4-10.2); CREATININE, SERUM 2.57 mg/dL (0.57-1.11); MAGNESIUM 2.4 MG/DL (1.3-2.1); POTASSIUM 4.3 mmol/L (3.5-5.1)
[2018-06-08 05:59] VITALS: BP 157/70
--- NOTE | 2018-06-08 06:16 | Diagnostic Imaging Report ---
EXAM: XR CHEST 1 VIEW DATE: 06/08/2018 6:21 PM INDICATION: Shortness of breath COMPARISON: 06/07/2018, no report available FINDINGS: Lines and Tubes: None Heart and Mediastinum: Enlarged caudate silhouette and prominent pulmonary arteries, stable. Lungs and Pleura: Mild to moderate edema, stable. Superimposed pneumonia left lung base possible. Bones and Soft Tissues: No acute findings. IMPRESSION: 1. No significant change. Signed by: Dr. Jethro Kendall MD on 06/08/2018 6:13 AM
[2018-06-08] MEDS: GLIMEPIRIDE 2 MG TAB PO SCH (07:30)
[2018-06-08] MEDS: INSULIN LISPRO 100 UNIT/1 ML 3ML VIAL SQ SCH ×4 (07:30→20:59)
[2018-06-08] MEDS: BUDESONIDE 0.5MG/2 ML NEB INH SCH ×3 (07:35→23:00)
[2018-06-08 08:00] VITALS: BP 156/74
--- NOTE | 2018-06-08 08:00 | NUR ---
The pt. is awake and sitting in the bedside chair. She denies pain or discomfort currently.
--- NOTE | 2018-06-08 09:30 | NUR ---
In to complete med pass and the pt. states the stopped the coreg yesterday and she was advised that the med was not discontinued but dose lessened.
[2018-06-08] MEDS: HYDRALAZINE HCL 25 MG TAB PO SCH ×3 (09:42→21:11)
[2018-06-08] MEDS: ASPIRIN 81 MG ENTERIC COATED PO SCH (09:42)
[2018-06-08] MEDS: FUROSEMIDE INJ 10 MG/ML 4 ML VIAL IV SCH (09:42)
[2018-06-08] MEDS: BENZONATATE 100 MG CAP PO SCH ×3 (09:43→21:11)
[2018-06-08] MEDS: FUROSEMIDE 40 MG TAB PO SCH (09:43)
[2018-06-08] MEDS: SITAGLIPTIN 100 MG TAB PO SCH (09:43)
[2018-06-08] MEDS: GUAIFENESIN 600MG/DEXTROMETHORPHAN 30MG TABSR PO SCH ×2 (09:43→18:16)
[2018-06-08] MEDS: CARVEDILOL 12.5 MG TAB PO SCH ×2 (09:43→18:16)
[2018-06-08 12:00] VITALS: BP 130/60
[2018-06-08] MEDS ORDERED: FUROSEMIDE INJ 10 MG/ML 10 ML VIAL IV ONE (13:30)
[2018-06-08] MEDS ORDERED: FUROSEMIDE INJ 100 MG in SODIUM CHLORIDE 0.9% 100 ML 90 ML IV SCH (13:45)
[2018-06-08] MEDS: FUROSEMIDE INJ 100 MG in SODIUM CHLORIDE 0.9% 100 ML 90 ML IV SCH (14:54)
[2018-06-08] MEDS: CEFEPIME 1GM/NS 0.9% 50 ML 50 ML IV SCH (14:54)
[2018-06-08 16:00] VITALS: BP 141/63
--- NOTE | 2018-06-08 16:56 | NUR ---
utrition Screen Note RD Recommendation for Physician: -Continue cardiac/ ADA diet as ordered -Pt refused diet education on 06/01. Plan of Care: RD following, monitoring for tolerance and adequacy Nutrition reason for involvement: Diagnosis CHF Primary Diagnose(s): 1. Lxaxz-vw-vehecen diastolic congestive heart failure. 2. Asthma exacerbation. 3. Hyponatremia. 4. Obesity. 5. Bilateral pneumonia. 6. Uncontrolled diabetes mellitus, type 2 with chronic renal insufficiency. 7. Goyab-js-hqtiydp renal failure, stage 3. PMH: CHF, DM, HTN, CAD, renal insufficiency, CAD Ht: 64in Wt: 290.44lb BMI: 49.9kg/m2 IBW: 120lb RD Assessment: 06/08: Pt seen for follow up. Pt reports eating well until yesterday, states "just don't have an appetite today." Pt denies any GI distress, noted significant BLE edema at time of visit. Pt continues on IV abx and diuretics as well as DM meds. Labs reviewed, POC BG elevated today. Current diet remains appropriate, encouraged compliance. Chart reviewed. Will monitor and continue to follow. (06/01) Chart reviewed. Labs and meds reviewed. 63yo morbidly obese female, who is admitted for SOB. Pt is currently on IV abx, IV lasix, and neb tx. Visited pt in room who denied significant wt loss, denied decrease in appetite [employer]PER[employer]OR [employer]. Pt denied chewing/swallowing problems and nausea/vomiting. RN recorded 75% meal intake since admission. LBM 06/01. Pt is not interested in diet education at this time. Will continue to monitor and follow. Current Diet: cardiac/ ADA diet Malnutrition Evaluation (06/01/18) The patient does not meet criteria for a specified degree of malnutrition at this time. Will re-evaluate at follow-up as appropriate. Diet Education Needs Assessment: Diet education indicated, pt is not interested. Nutrition Care Level: low Signed: Lizbeth Kay RD, LD, [facility]
--- NOTE | 2018-06-08 17:57 | Progress Note ---
DATE: June 08, 2018 INTERNAL MEDICINE PROGRESS NOTE SUBJECTIVE: Patient is sleepy but she is doing better. PHYSICAL EXAM VITAL SIGNS: Blood pressure 130/60, temperature 96.9, heart rate 62 per minute, respiratory rate 22 per minute. Oxygen saturation 92%. HEART: Regular rhythm. Normal S1 and S2 sounds. LUNGS: Clear bilaterally. ABDOMEN: Soft. EXTREMITIES: Show 1+ bilateral pedal edema, decreases from yesterday. On the BMP, sodium 141, potassium 4.3, chloride 103, CO2 28, BUN 74, creatinine 2.57, glucose 130. On the CBC, white blood count 8.65, hemoglobin 13.3, hematocrit 43.0, platelet count 300,000. AST 20, ALT 14, total bilirubin 1.0, alkaline phosphatase 50. FINAL IMPRESSIONS 1. Acute on chronic diastolic congestive heart failure. 2. Asthma exacerbation. 3. Pneumonia. 4. Uncontrolled diabetes mellitus type 2 with chronic renal insufficiency. 5. Acute on chronic renal failure, stage 3 to 4. 6. Obesity. PLAN OF TREATMENT: We are going to continue albuterol and Atrovent q.4 hours, Lasix drip, cefepime 1 g IV twice a day, Levaquin 500 mg IV daily, glimepiride 4 mg daily, Tradjenta mg daily, carvedilol 3.125 mg twice a day, hydralazine 75 mg 3 times a day, Tessalon 100 mg 3 times a day, Tylenol 650 mg q.6 hours as needed for headaches, dextromethorphan 2 teaspoons every 4 hours as needed for cough, Lipitor 20 mg daily, aspirin 325 mg daily, Lovenox 30 mg subcutaneous daily, Zofran 4 mg IV q.6 hours as needed. Job#: [id number] ZION
[2018-06-08] MEDS: LEVOFLOXACIN 500MG/D5W 100ML 100 ML IV SCH (18:16)
[2018-06-08] MEDS: ENOXAPARIN 30 MG/0.3 ML SYR SC SCH (18:16)
--- NOTE | 2018-06-08 19:38 | NUR ---
Patient received lying in bed. AAO x 3. No complaints of pain /discomfort. No signs of respiratory distress. Fall precautions maintained. Patient instructed to call for assistance when needed. Call light within reach.
[2018-06-08 19:45] VITALS: BP 177/76
[2018-06-08] MEDS: ATORVASTATIN 20 MG TAB PO SCH (21:11)
--- NOTE | 2018-06-08 23:04 | Progress Note ---
DATE: June 08, 2018 PULMONARY MEDICINE PROGRESS NOTE SUBJECTIVE: Ms. Acosta was seen and examined at bedside. She continues to have low appetite. On 2 L per minute by nasal cannula. She did have bowel movement today. She walked to the room, but due to poor endurance, she did not leave the room. REVIEW OF SYSTEMS: No headaches, no bleeding. OBJECTIVE VITALS: Afebrile. Vital signs noted per electronic record. GENERAL: No acute distress. Alert and calm. HEENT: Normocephalic, atraumatic. NECK: Supple. Throat midline. LUNGS: Bilateral air entry. Decreased breath sounds. Rare rhonchi. CARDIOVASCULAR: S1 and S2. No murmurs, rubs, or gallops. ABDOMEN: Soft and nontender. EXTREMITIES: No clubbing. No cyanosis. There is 2+ edema. INTEGUMENT: No rash. No purpura. LABS: Potassium 4.3, BUN 34, creatinine 2.57. White count 9, hematocrit 43. IMPRESSION 1. Pulmonary edema. 2. Pneumonia. 3. Woqlw-xu-cvvidpq kidney failure. 4. Hypoxemia. 5. Low functional endurance. PLAN: Continue aggressive rehab. Continue allow the patient's appetite to improve. Diuretics ongoing. Follow up electrolytes tomorrow which is ordered. Intermittent chest x-rays and we will consider doing another one in another couple of days. Job#: [id number]
[2018-06-08] MEDS: ONDANSETRON HCL INJ 2MG/ML 2ML 2 MG/ML VIAL IV PRN (23:07)
[2018-06-09] VITALS (8 sets, daily range): BP systolic 120–155; BP diastolic 56–71
[2018-06-09] MEDS: FUROSEMIDE INJ 100 MG in SODIUM CHLORIDE 0.9% 100 ML 90 ML IV SCH ×3 (02:00→20:45)
[2018-06-09] MEDS: ALBUTEROL/IPRATROPIUM 3 ML NEB NEB SCH ×6 (03:00→22:32)
[2018-06-09 05:49] LABS: ALBUMIN 2.9 g/dL (3.5-5.0); ALBUMIN/GLOBULIN RATIO 0.9 (0.8-2.0); CALCIUM 8.4 mg/dL (8.4-10.2); CREATININE, SERUM 2.26 mg/dL (0.57-1.11)
[2018-06-09] MEDS: BUDESONIDE 0.5MG/2 ML NEB INH SCH ×2 (07:00→22:32)
--- NOTE | 2018-06-09 07:15 | NUR ---
The pt. is in bed asleep with o2 intake, side rails elevated times 2 and call light within reach.
[2018-06-09] MEDS: GLIMEPIRIDE 2 MG TAB PO SCH (07:30)
[2018-06-09] MEDS: INSULIN LISPRO 100 UNIT/1 ML 3ML VIAL SQ SCH ×4 (07:30→21:00)
[2018-06-09] MEDS: HYDRALAZINE HCL 25 MG TAB PO SCH ×3 (09:38→20:40)
[2018-06-09] MEDS: ASPIRIN 81 MG ENTERIC COATED PO SCH (09:38)
[2018-06-09] MEDS: GUAIFENESIN 600MG/DEXTROMETHORPHAN 30MG TABSR PO SCH ×2 (09:39→18:15)
[2018-06-09] MEDS: SITAGLIPTIN 100 MG TAB PO SCH (09:39)
[2018-06-09] MEDS: BENZONATATE 100 MG CAP PO SCH ×3 (09:39→20:45)
[2018-06-09] MEDS: CARVEDILOL 12.5 MG TAB PO SCH ×2 (09:39→18:15)
--- NOTE | 2018-06-09 10:10 | NUR ---
Spoke to Dr. Chambers regarding discharge plan. Pt started on Lasix gtt yesterday. Continues on IV abx. Dr. Chambers gave order for LTAC evaluation. CM spoke to pt at bedside and explained LTAC to her. She stated she would like to speak to Dr. Chambers regarding of duration of abx and Lasix gtt prior to making a decision. CM reached out to Dr. Chambers. Awaiting response. CM to follow up.
[2018-06-09] MEDS: CEFEPIME 1GM/NS 0.9% 50 ML 50 ML IV SCH (14:48)
[2018-06-09] MEDS: LEVOFLOXACIN 500MG/D5W 100ML 100 ML IV SCH (18:15)
[2018-06-09] MEDS: ENOXAPARIN 30 MG/0.3 ML SYR SC SCH (18:15)
--- NOTE | 2018-06-09 19:24 | Progress Note ---
DATE: June 09, 2018 INTERNAL MEDICINE PROGRESS NOTE SUBJECTIVE: Patient is feeling better. PHYSICAL EXAM VITAL SIGNS: Blood pressure is 141/68. Temperature 97.2. Heart rate 64 per minute. Respiratory rate 22 per minute. Oxygen saturation 93%. HEART: Regular rhythm. Normal S1, S2 sounds. LUNGS: Clear bilaterally. ABDOMEN: Soft. EXTREMITIES: Show 2+ bilateral pedal edema. LABS: On the BMP, sodium 143, potassium 4.0, chloride 104, CO2 29, BUN 64, creatinine 2.26, glucose 103. On the CBC, white blood count is 8.65, hemoglobin 13.3, hematocrit 43.0, platelet count 300,000. AST 20, ALT 18, total bilirubin 2.0, alkaline phosphatase 52. FINAL IMPRESSION 1. Bilateral pneumonia. 2. Pfhrr-xj-sjftfto diastolic congestive heart failure. 3. Anasarca. 4. Nqqys-vr-egttupw renal failure stage 3 to 4. 5. Uncontrolled diabetes mellitus type 2 with chronic renal insufficiency. 6. Morbid obesity. 7. Asthma exacerbation. PLAN OF TREATMENT: Continue albuterol and Atrovent q.4 h., Pulmicort twice a day, cefepime 1 g IV once a day, Levaquin 500 mg IV once a day, glimepiride 4 mg daily, Januvia 50 mg daily, carvedilol 12.5 mg twice a day. Continue monitoring blood sugar a.c. and h.s. Continue hydralazine 75 mg 3 times a day, Tessalon 100 mg 3 times a day, Tylenol 350 mg q.6 h. as needed, guaifenesin with dextromethorphan 2 teaspoons every 4 hours as needed for cough, Lipitor 20 mg daily, aspirin 81 mg daily, Lovenox 30 mg subcutaneously daily, Zofran 4 mg IV q.4 h. as needed. LTAC referral and see if insurance can approve that. Job#: [id number] OLIVIER
--- NOTE | 2018-06-09 19:25 | NUR ---
Patient received sitting in recliner chair. Lasix infusing at 10 cc/hr. No acute distress noted. Call light within reach.
--- NOTE | 2018-06-09 20:27 | NUR ---
Patient's IV on left arm infiltrated. New IV inserted on Left hand 22G. Patient tolerated well.
[2018-06-09] MEDS: ATORVASTATIN 20 MG TAB PO SCH (20:40)
--- NOTE | 2018-06-09 23:08 | Progress Note ---
DATE: June 09, 2018 PULMONARY MEDICINE PROGRESS NOTE SUBJECTIVE: Ms. Acosta was seen and examined at bedside. She continues with slow improvement. She is on 2 liters per minute by nasal cannula. She has low energy levels when mobilizing. She has shortness of breath that is present. She has decreased p.o. intake still. She did have bowel movement yesterday. REVIEW OF SYSTEMS: No headaches, no bleeding. OBJECTIVE: VITAL SIGNS: Afebrile, vital signs noted per electronic record. GENERAL: In no acute distress, alert, calm, just low energy. HEENT: Normocephalic, atraumatic. NECK: Supple. Throat midline. LUNGS: Bilateral air entry, decreased breath sounds. CARDIOVASCULAR: S1, S2. No murmurs, rubs, or gallops. ABDOMEN: Soft, nontender. EXTREMITIES: No clubbing, no cyanosis, there is 2+ edema. INTEGUMENT: No rash, no purpura. LABS: 64 BUN, 2.3 creatinine. 9 white count, 43 hematocrit. IMPRESSION AND PLAN: 1. Pulmonary edema. 2. Pneumonia. 3. Vpunj-db-nzkphbi kidney failure. 4. Weakness. 5. Hypoxemia. Continue oxygen per protocol. Patient not on home oxygen at home. She will need re-evaluation prior to discharge. Continue treatment for pneumonia with antibiotic. Continue diuretics. Her creatinine is getting better. Follow up closely. Job#: [id number]
[2018-06-10] VITALS (8 sets, daily range): BP systolic 133–160; BP diastolic 60–84
[2018-06-10] MEDS: ALBUTEROL/IPRATROPIUM 3 ML NEB NEB SCH ×6 (00:10→20:30)
[2018-06-10 06:21] LABS: ANION GAP 14.9 mmol/L (8-16); CALCIUM 8.4 mg/dL (8.4-10.2); CREATININE, SERUM 2.2 mg/dL (0.57-1.11); MAGNESIUM 2.2 MG/DL (1.3-2.1); POTASSIUM 3.9 mmol/L (3.5-5.1)
[2018-06-10] MEDS: FUROSEMIDE INJ 100 MG in SODIUM CHLORIDE 0.9% 100 ML 90 ML IV SCH ×2 (06:30→16:08)
[2018-06-10] MEDS: BUDESONIDE 0.5MG/2 ML NEB INH SCH ×2 (06:57→20:30)
--- NOTE | 2018-06-10 07:25 | NUR ---
Walking rounds done. Shift report given to oncoming nurse.
[2018-06-10] MEDS: INSULIN LISPRO 100 UNIT/1 ML 3ML VIAL SQ SCH ×4 (07:30→21:00)
[2018-06-10] MEDS: GLIMEPIRIDE 2 MG TAB PO SCH (08:52)
[2018-06-10] MEDS: SITAGLIPTIN 100 MG TAB PO SCH (08:52)
[2018-06-10] MEDS: BENZONATATE 100 MG CAP PO SCH ×3 (08:52→21:55)
[2018-06-10] MEDS: GUAIFENESIN 600MG/DEXTROMETHORPHAN 30MG TABSR PO SCH ×2 (08:52→17:55)
[2018-06-10] MEDS: ASPIRIN 81 MG ENTERIC COATED PO SCH (08:52)
[2018-06-10] MEDS: CARVEDILOL 12.5 MG TAB PO SCH ×2 (08:53→17:00)
[2018-06-10] MEDS: HYDRALAZINE HCL 25 MG TAB PO SCH ×3 (08:53→21:55)
[2018-06-10] MEDS ORDERED: NEOSTIGMINE 1 MG/ML 10ML VIAL ONE (09:29)
[2018-06-10] MEDS ORDERED: DEXAMETHASONE SOD PHOS INJ 4 MG/ML VIAL ONE (09:29)
[2018-06-10] MEDS ORDERED: BUPIVACAINE 0.25% 30ML SDV INJ ONE (09:29)
--- NOTE | 2018-06-10 11:15 | NUR ---
CM followed up with pt regarding LTAC. Pt stated Dr. Chambers has talked to her and she is agreeable. Choice letter signed for [facility]. Copy to pt. Abby Soares, liaison with [facility] was notified and will come order picker clinicals.
[2018-06-10] MEDS: CEFEPIME 1GM/NS 0.9% 50 ML 50 ML IV SCH (16:08)
[2018-06-10] MEDS: LEVOFLOXACIN 500MG/D5W 100ML 100 ML IV SCH (17:55)
[2018-06-10] MEDS: ENOXAPARIN 30 MG/0.3 ML SYR SC SCH (17:55)
--- NOTE | 2018-06-10 19:03 | NUR ---
BEDSIDE ROUNDS DONE WITH ONCOMING NURSE. PT SITTING UP IN RECLINER WITH TV ON, NO C/O PAIN OR SOB. CALL LIGHT WITHIN REACH.
--- NOTE | 2018-06-10 19:09 | NUR ---
Patient received sitting in recliner. Lasix infusing at 10 cc / hr. No complaints of pain. No signs of respiratory distress. Call light within reach.
--- NOTE | 2018-06-10 19:29 | Progress Note ---
DATE: June 10, 2018 INTERNAL MEDICINE PROGRESS NOTE SUBJECTIVE: Patient is doing better today. PHYSICAL EXAMINATION VITAL SIGNS: Blood pressure is 160/72, temperature 97.2, heart rate 55 per minute, respiratory rate is 20 per minute, oxygen saturation 99%. HEART: Shows regular rhythm. Normal S1 and S2 sounds. LUNGS: Clear bilaterally. EXTREMITIES: Show 2+ bilateral pedal edema. LABS: On the BMP; sodium 141, potassium 3.1, chloride 102, CO2 of 28, BUN 53, creatinine 2.20, glucose 76. On the CBC; white blood count 8.65, hemoglobin 13.3, hematocrit 43.0, platelet count 300,000. AST 20, ALT 18, total bilirubin 2.0, alkaline phosphatase 52. FINAL IMPRESSION 1. Rmbuj-uc-tgpvwxd diastolic congestive heart failure. 2. Izrwl-ql-jrumsbt renal failure stage 3 to 4. 3. Anasarca. 4. Asthma. 5. Bilateral pneumonia. 6. Obesity. PLAN OF TREATMENT: Continue Lasix drip. Continue with cefepime 1 g IV q.24 hours, Levaquin 500 mg IV once a day. Continue albuterol and Atrovent q.4 hours a day for shortness of breath, glimepiride 4 mg daily, Januvia 50 mg daily, carvedilol 12.5 mg twice a day, Tessalon 100 mg 3 times a day, hydralazine 75 mg 3 times a day. Continue monitoring blood sugar a.c. and at bedtime. Continue with Tylenol 650 mg q.6 hours as needed for pain and fever, guaifenesin with dextromethorphan 2 teaspoons twice a day as needed for cough, Lipitor 20 mg daily, aspirin 81 mg daily, Lovenox 30 mg subcutaneously daily and Zofran 4 mg q.6 hours as needed. Patient is going to be evaluated to go to [place] once the insurance except her. Job#: [id number] SADI
[2018-06-10] MEDS: ATORVASTATIN 20 MG TAB PO SCH (21:55)
--- NOTE | 2018-06-10 23:30 | Progress Note ---
DATE: June 10, 2018 PULMONARY MEDICINE PROGRESS NOTE SUBJECTIVE: Ms. cAosta was seen and examined at bedside. She continues to have slow progress. She is still very low in energy. She continues on oxygen 2 liters per minute on nasal cannula flow. She is not eating much. Legs still with the significant edema. REVIEW OF SYSTEMS: No headache, no bleeding. OBJECTIVE VITAL SIGNS: Afebrile. Vital signs noted per electronic record. GENERAL: In no acute distress, alert and calm. HEENT: Normocephalic and atraumatic. Throat is midline. NECK: Supple. LUNGS: Bilateral air entry, decreased breath sounds, rare rhonchi. CARDIOVASCULAR: S1, S2. No murmurs, rubs, or gallops. ABDOMEN: Soft and nontender. EXTREMITIES: No clubbing. No cyanosis. There is 2+ edema. INTEGUMENT: No rash or purpura. LABS: BUN 53, creatinine 2.2, potassium 3.9. IMPRESSION 1. Pulmonary edema. 2. Pneumonia. 3. Nllcw-mn-rtztasr kidney failure. 4. Hypoxemia. PLAN: Continue weaning oxygen. Continue diuretics. Follow up electrolytes intermittently. Antibiotics to continue until better. Continue bronchodilators. Job#: [id number] NAIDA
[2018-06-11] VITALS (8 sets, daily range): BP systolic 135–183; BP diastolic 62–90
[2018-06-11] MEDS: ALBUTEROL/IPRATROPIUM 3 ML NEB NEB SCH ×6 (02:18→23:00)
[2018-06-11] MEDS: FUROSEMIDE INJ 100 MG in SODIUM CHLORIDE 0.9% 100 ML 90 ML IV SCH ×2 (03:50→13:00)
[2018-06-11] MEDS ORDERED: SODIUM CHLORIDE 0.9% 250ML 250 ML ONE (04:00)
[2018-06-11 05:50] LABS: BASOPHILS % 0.2 % (0.0-1.0); EOSINOPHILS # (AUTO) 0.3 (0.0-0.4); EOSINOPHILS % 3.4 % (0.0-6.0); HEMATOCRIT 42.5 % (34.2-44.1); HEMOGLOBIN 12.8 g/dL (12.0-16.0); LYMPHOCYTES # (AUTO) 1.3 (1.0-3.2); LYMPHOCYTES % 15.8 % (18.0-39.1); MEAN CORPUSCULAR HEMOGLOBIN 28.6 pg (28-32); MEAN CORPUSCULAR HGB CONC 30.1 g/dL (31-35); MEAN CORPUSCULAR VOLUME 95.1 fL (81-99); MONOCYTES # (AUTO) 1.1 (0.2-0.8); NEUTROPHILS # (AUTO) 5.7 (2.1-6.9); NEUTROPHILS % 66.8 % (38.7-80.0); PLATELET COUNT 236 x10e3/uL (140-360); RED BLOOD COUNT 4.47 x10e6/uL (3.6-5.1); RED CELL DISTRIBUTION WIDTH 13.9 % (11.7-14.4)
[2018-06-11 06:15] LABS: CALCIUM 8.4 mg/dL (8.4-10.2); CREATININE, SERUM 2.31 mg/dL (0.57-1.11)
[2018-06-11] MEDS: BUDESONIDE 0.5MG/2 ML NEB INH SCH ×2 (07:00→20:10)
--- NOTE | 2018-06-11 07:11 | NUR ---
received pt sitting up in recliner, TV on. Resp even and unlabored. denies SOB and pain. call light within reach.
[2018-06-11] MEDS: INSULIN LISPRO 100 UNIT/1 ML 3ML VIAL SQ SCH ×5 (07:30→21:00)
[2018-06-11] MEDS: BENZONATATE 100 MG CAP PO SCH ×3 (08:40→20:50)
[2018-06-11] MEDS: GUAIFENESIN 600MG/DEXTROMETHORPHAN 30MG TABSR PO SCH ×2 (08:40→17:20)
[2018-06-11] MEDS: GLIMEPIRIDE 2 MG TAB PO SCH (08:40)
[2018-06-11] MEDS: ASPIRIN 81 MG ENTERIC COATED PO SCH (08:40)
[2018-06-11] MEDS: SITAGLIPTIN 100 MG TAB PO SCH (08:40)
[2018-06-11] MEDS: HYDRALAZINE HCL 25 MG TAB PO SCH ×3 (08:42→20:50)
[2018-06-11] MEDS: CARVEDILOL 12.5 MG TAB PO SCH ×2 (08:42→17:00)
[2018-06-11] MEDS ORDERED: FUROSEMIDE INJ 10 MG/ML 4 ML VIAL IV NR (12:00)
[2018-06-11] MEDS: CEFEPIME 1GM/NS 0.9% 50 ML 50 ML IV SCH (15:57)
--- NOTE | 2018-06-11 16:05 | Progress Note ---
DATE: June 11, 2018 INTERNAL MEDICINE PROGRESS NOTE SUBJECTIVE: Patient is doing well except for swelling on the legs. Her shortness of breath has improved significantly. PHYSICAL EXAM: VITAL SIGNS: Blood pressure 150/68, temperature 98.1, heart rate 55 per minute, respiratory rate 20 per minute, oxygen saturation 95%. HEART: Shows regular rhythm. Normal S1, S2 sounds. LUNGS: Clear bilaterally. ABDOMEN: Soft. EXTREMITIES: Show 2+ bilateral pedal edema. On the blood work, we have CBC with white blood count 8.49, hemoglobin 12.8, hematocrit 42.5, platelet count 256,000. On the BMP, sodium 144, potassium 4.0, chloride 105, CO2 28, BUN 48, creatinine 2.31, glucose 88. Calcium 8.4. Last chest x-ray showed no significant changes with mild to moderate edema, superimposed pneumonia in left lung base. FINAL IMPRESSION 1. Obyfv-qy-iwzzzoy diastolic congestive heart failure. 2. Asthma exacerbation which is resolved. 3. Smpke-gq-twqlckb renal failure stage 3 to 4. 4. Uncontrolled diabetes mellitus type 2 with chronic renal insufficiency. 5. Bilateral pneumonia. 6. Anasarca. PLAN OF TREATMENT: We are going to continue with the current medication regimen which includes cefepime 1 gram IV q.24 hours. She is on a Lasix drip. She is on Levaquin 500 mg IV once a day. She is on albuterol and Atrovent q.4 hours. She is on aspirin 81 mg daily. She is on Lipitor 20 mg daily, Tessalon 100 mg 3 times a day, Pulmicort 1 inhalation twice a day, carvedilol 3.125 mg twice a day. She is on Chloraseptic sprays q.4 hours as needed for sore throat, IV push as needed for hypoglycemia. She is also taking Lovenox 30 mg daily. She is on glimepiride 4 mg daily. Continue monitoring blood sugar a.c. and at bedtime. She is on hydralazine 100 mg 3 times a day. She is on Januvia 50 mg daily. We are going to also start her on Zaroxolyn due to the fact that the patient still has significant edema on both lower extremities and I am also going to do a BMP tomorrow to monitor BUN, creatinine, electrolytes especially when taking Zaroxolyn. I am going to also order a venous Doppler on both lower extremities to rule out DVT. Time spent 45 minutes. Job#: [id number] SHANTEL
[2018-06-11] MEDS: LEVOFLOXACIN 500MG/D5W 100ML 100 ML IV SCH (17:21)
[2018-06-11] MEDS: ATORVASTATIN 20 MG TAB PO SCH (20:50)
[2018-06-11] MEDS ORDERED: FUROSEMIDE INJ 250 MG in SODIUM CHLORIDE 0.9% 250ML 225 ML IV SCH (21:00)
[2018-06-12] VITALS (7 sets, daily range): BP systolic 155–186; BP diastolic 70–82
--- NOTE | 2018-06-12 03:26 | Progress Note ---
DATE: June 11, 2018 PULMONARY MEDICINE PROGRESS NOTE SUBJECTIVE: Mrs. Acosta was seen and examined at bedside. She continues with slow progress. She is eating less. She was started on Lasix drip, 10 mg per hour dose of Lasix. However, she complains her urine has not been productive. She still has a lot of swelling, 3+ to the legs. REVIEW OF SYSTEMS: No headaches, no bleeding. OBJECTIVE VITAL SIGNS: Afebrile. Vital signs noted per electronic record. GENERAL: No acute distress, alert and calm. HEENT: Normocephalic, atraumatic. Throat midline. NECK: Supple. LUNGS: Bilateral air entry, few rhonchi. CARDIOVASCULAR: S1 and S2. No murmurs, rubs, or gallops. ABDOMEN: Soft and nontender. EXTREMITIES: No clubbing. No cyanosis. There is 3+ leg edema. INTEGUMENT: No rash or purpura. IMPRESSION 1. Fluid overload. 2. Rmtjh-kq-rzokoku kidney failure. 3. Pneumonia. 4. Anorexia. PLAN: Continue Lasix drip. Repeat electrolytes in the morning. Give her Glucerna supplements. Check venous duplex to rule out DVT given the poor response. Follow up closely. Job#: [id number]
[2018-06-12 05:28] LABS: ANION GAP 15.8 mmol/L (8-16); CALCIUM 9.1 mg/dL (8.4-10.2); CREATININE, SERUM 2.19 mg/dL (0.57-1.11); POTASSIUM 3.8 mmol/L (3.5-5.1)
[2018-06-12] MEDS: ALBUTEROL/IPRATROPIUM 3 ML NEB NEB SCH ×5 (07:00→23:00)
[2018-06-12] MEDS: INSULIN LISPRO 100 UNIT/1 ML 3ML VIAL SQ SCH ×4 (07:30→21:00)
[2018-06-12] MEDS: GLIMEPIRIDE 2 MG TAB PO SCH (09:44)
[2018-06-12] MEDS: ASPIRIN 81 MG ENTERIC COATED PO SCH (09:44)
[2018-06-12] MEDS: HYDRALAZINE HCL 25 MG TAB PO SCH ×3 (09:44→21:01)
[2018-06-12] MEDS: CARVEDILOL 12.5 MG TAB PO SCH ×2 (09:45→17:03)
[2018-06-12] MEDS: METOLAZONE 5 MG TAB PO SCH (09:45)
[2018-06-12] MEDS: GUAIFENESIN 600MG/DEXTROMETHORPHAN 30MG TABSR PO SCH ×2 (09:45→17:03)
[2018-06-12] MEDS: SITAGLIPTIN 100 MG TAB PO SCH (09:45)
[2018-06-12] MEDS: BENZONATATE 100 MG CAP PO SCH ×3 (09:45→21:01)
[2018-06-12] MEDS ORDERED: POTASSIUM CHLORIDE 20 MEQ TAB CR PO NR (10:45)
[2018-06-12] MEDS: BUDESONIDE 0.5MG/2 ML NEB INH SCH ×2 (11:30→19:00)
[2018-06-12] MEDS ORDERED: FUROSEMIDE INJ 10 MG/ML 4 ML VIAL IV NR (11:45)
[2018-06-12] MEDS: FUROSEMIDE INJ 250 MG in SODIUM CHLORIDE 0.9% 250ML 225 ML IV SCH (11:55)
[2018-06-12] MEDS ORDERED: FUROSEMIDE INJ 250 MG in SODIUM CHLORIDE 0.9% 250ML 225 ML IV SCH (12:00)
[2018-06-12] MEDS: LISINOPRIL 10 MG TAB PO SCH (12:22)
--- NOTE | 2018-06-12 16:37 | Progress Note ---
DATE: June 12, 2018 INTERNAL MEDICINE PROGRESS NOTE SUBJECTIVE: Patient is feeling better today. PHYSICAL EXAM VITAL SIGNS: Blood pressure 160/70, temperature 97.7 degrees Fahrenheit, heart rate 54 per minute, respiratory rate is 20 per minute, oxygen saturation 95%. HEART: Shows regular rhythm. Normal S1 and S2 sound. LUNGS: Clear bilaterally, but significantly decreased. ABDOMEN: Soft. EXTREMITIES: Show 2+ bilateral pedal edema. LABORATORY DATA: On the BMP; sodium 142, potassium 3.8, chloride 102, CO2 of 28, BUN 42, creatinine 2.19, glucose 68. On the CBC; white blood count 8.49, hemoglobin 12.8, hematocrit 42.5, platelet count 236,000. AST 20, ALT 18, total bilirubin 2.0, alkaline phosphatase 52. FINAL IMPRESSION 1. Mojov-dh-fnupbuv diastolic congestive heart failure. 2. Asthma exacerbation. 3. Bilateral pneumonia. 4. Bcauc-al-wnaqrjk renal failure, stage 4. 5. Uncontrolled diabetes mellitus type 2 with chronic renal insufficiency. 6. Anasarca. PLAN OF TREATMENT: Continue albuterol and Atrovent q.4 hours. Continue budesonide 1 inhalation twice a day, cefepime 1 gram IV once a day. Levaquin has been discontinued. Continue Lasix drip. Continue glimepiride 4 mg daily. We are finishing beathorphan 2 teaspoons every 4 hours as needed for cough. She is also on Zaroxolyn 2.5 mg daily to obtain more diuresis. Continue monitoring blood sugar a.c. and h.s. Continue Tylenol 650 mg p.o. q.4-6 hours as needed, Zofran 4 mg IV q.6 hours as needed, lisinopril 10 mg daily, carvedilol 12.5 mg twice a day, Januvia 50 mg daily. Continue with Lipitor 20 mg daily, aspirin 81 mg daily, Tessalon 100 mg 3 times a day. Hydralazine has been discontinued. I am going to put on Hytrin 5 mg daily. I am going to recheck the TSH also and nephrology on the case, which is Dr. Wilson, Dr. Sofia Griffith from cardiology, Dr. Ulisses Menon from pulmonary. Hopefully, patient should be able to go home once the anasarca is resolving. Continue BMP tomorrow. Job#: [id number] ALISON
[2018-06-12] MEDS: LEVOFLOXACIN 500MG/D5W 100ML 100 ML IV SCH (17:03)
--- NOTE | 2018-06-12 17:43 | Progress Note ---
DATE: June 12, 2018 PULMONARY MEDICINE PROGRESS NOTE SUBJECTIVE: Ms. Acosta was seen and examined at bedside. She continues to have slow progress. She did start to urinate a lot yesterday. Creatinine did mildly go down. She had bowel movement. She is not eating much and is eating less than 25%. She is on 2 liters per minute nasal cannula with saturation 98%. She remains on Lasix at 20 mg per hour, which is increased. REVIEW OF SYSTEMS: No headaches, no GI bleed. OBJECTIVE VITAL SIGNS: Afebrile. Vital signs noted per electronic record. GENERAL: No acute distress, alert and calm. HEENT: Normocephalic, atraumatic. NECK: Supple. Throat midline. LUNGS: Bilateral air entry, few rhonchi. CARDIOVASCULAR: S1 and S2. No murmurs, rubs, or gallops. ABDOMEN: Soft, nontender. EXTREMITIES: No clubbing. No cyanosis. There is 2 to 3+ edema. INTEGUMENT: No rash. No purpura. 42LABS: BUN, creatinine 2.2, potassium 3.8, hematocrit 42. IMPRESSION AND PLAN 1. Significant pulmonary edema and fluid overload. 2. Pneumonia. 3. Oyfzl-dk-mgrrgkx kidney failure. 4. Anorexia. 5. Hypertension. 6. Obesity. Continue diuretic drip at increased levels. Follow up ins and outs. Follow up weights. Continue to ensure appropriate improvement of diet and anorexia. Continue to ensure bowel movements. Continue weaning off oxygen. LTAC consult was made, which seems very appropriate based on all the complex clinical findings here and the fact the patient will need time before she gets better. We will follow along closely. Job#: [id number] RTY
[2018-06-12 17:54] LABS: CREATININE,URINE RANDOM 20.29 mg/dL (47-110); TOTAL PROTEIN, URINE 15.7 mg/dL (1-14)
[2018-06-12] MEDS: ATORVASTATIN 20 MG TAB PO SCH (21:01)
[2018-06-12] MEDS: TERAZOSIN HCL 1 MG CAP PO SCH (21:01)
[2018-06-13] VITALS (8 sets, daily range): BP systolic 125–145; BP diastolic 60–67
[2018-06-13] MEDS: ALBUTEROL/IPRATROPIUM 3 ML NEB NEB SCH ×4 (03:00→23:45)
[2018-06-13 05:41] LABS: BASOPHILS % 0.4 % (0.0-1.0); EOSINOPHILS # (AUTO) 0.2 (0.0-0.4); EOSINOPHILS % 2.3 % (0.0-6.0); HEMATOCRIT 43.5 % (34.2-44.1); HEMOGLOBIN 13.3 g/dL (12.0-16.0); LYMPHOCYTES # (AUTO) 1.6 (1.0-3.2); LYMPHOCYTES % 16.6 % (18.0-39.1); MEAN CORPUSCULAR HEMOGLOBIN 28.5 pg (28-32); MEAN CORPUSCULAR HGB CONC 30.6 g/dL (31-35); MEAN CORPUSCULAR VOLUME 93.3 fL (81-99); MONOCYTES # (AUTO) 1.6 (0.2-0.8); MONOCYTES % 16.3 % (4.4-11.3); NEUTROPHILS # (AUTO) 6.1 (2.1-6.9); NEUTROPHILS % 63.8 % (38.7-80.0); PLATELET COUNT 229 x10e3/uL (140-360); RED BLOOD COUNT 4.66 x10e6/uL (3.6-5.1); RED CELL DISTRIBUTION WIDTH 13.9 % (11.7-14.4)
[2018-06-13 06:06] LABS: ANION GAP 17.6 mmol/L (8-16); CALCIUM 8.8 mg/dL (8.4-10.2); CREATININE, SERUM 2.21 mg/dL (0.57-1.11); POTASSIUM 3.6 mmol/L (3.5-5.1)
--- NOTE | 2018-06-13 06:07 | Diagnostic Imaging Report ---
CHEST SINGLE (PORTABLE), 06/13/2018 5:00 AM Technique: CHEST SINGLE (PORTABLE) Comparison: 06/08/2018 Clinical history: Congestive heart failure Findings: See Impression Impression: 1. Lines/Tubes: None 2. Stable enlarged cardiomediastinal silhouette. 3. Diffuse opacities, likely edema. No definite effusion appreciated. Signed by: Dr Ileana Trveizo MD on 06/13/2018 6:04 AM
[2018-06-13] MEDS: BUDESONIDE 0.5MG/2 ML NEB INH SCH ×2 (07:00→20:14)
[2018-06-13] MEDS: FUROSEMIDE INJ 250 MG in SODIUM CHLORIDE 0.9% 250ML 225 ML IV SCH ×4 (07:30→22:50)
[2018-06-13] MEDS: INSULIN LISPRO 100 UNIT/1 ML 3ML VIAL SQ SCH ×4 (07:30→20:45)
[2018-06-13] MEDS: HYDRALAZINE HCL 25 MG TAB PO SCH (09:00)
[2018-06-13] MEDS: ASPIRIN 81 MG ENTERIC COATED PO SCH (09:05)
[2018-06-13] MEDS: SITAGLIPTIN 100 MG TAB PO SCH (09:05)
[2018-06-13] MEDS: GLIMEPIRIDE 2 MG TAB PO SCH (09:06)
[2018-06-13] MEDS: GUAIFENESIN 600MG/DEXTROMETHORPHAN 30MG TABSR PO SCH ×2 (09:09→16:42)
[2018-06-13] MEDS: CARVEDILOL 12.5 MG TAB PO SCH ×2 (09:09→16:42)
[2018-06-13] MEDS: METOLAZONE 5 MG TAB PO SCH (09:10)
[2018-06-13] MEDS: BENZONATATE 100 MG CAP PO SCH ×3 (09:10→20:44)
[2018-06-13] MEDS: LISINOPRIL 10 MG TAB PO SCH (09:10)
--- NOTE | 2018-06-13 12:32 | NUR ---
Still pending insurance auth for [facility]. Nidhi, liaison with [facility], sent updates today.
--- NOTE | 2018-06-13 16:51 | NUR ---
Dietary consult received. Pt was sleeping during my visit. Will re-visit tomorrow AM.
--- NOTE | 2018-06-13 18:18 | Progress Note ---
DATE: June 13, 2018 INTERNAL MEDICINE PROGRESS NOTE SUBJECTIVE: Patient is still with significant swelling of both lower extremities, a little less short of breath. PHYSICAL EXAM: HEART: Shows regular rhythm. Normal S1 and S2 sounds. LUNGS: Clear bilaterally. ABDOMEN: Is soft. EXTREMITIES: She does have 2+ bilateral pedal edema. VITAL SIGNS: Blood pressure 131/63. Temperature 97.6. Heart rate 55 per minute. Respiratory rate is 20 per minute. Oxygen saturation 94%. On the BMP: Sodium 143, potassium 3.6, chloride 97, CO2 32, BUN 36, creatinine 2.21, glucose 90. On the CBC: White blood count 9.50, hemoglobin 13.3, hematocrit 43.5, platelet count 229,000. AST 20, ALT 18, total bilirubin 2.0, alkaline phosphatase 52. FINAL IMPRESSION: 1. Acute on chronic renal insufficiency. 1. Acute on chronic diastolic congestive heart failure. 2. Uncontrolled diabetes mellitus type 2 with chronic renal insufficiency. 3. Hypertension with hypertensive nephropathy. 4. Hypertension with hypertensive heart disease. 5. Obesity. PLAN OF TREATMENT: Continue with albuterol and Atrovent q.4 hours. Budesonide twice a day. Levaquin 500 mg IV daily. Furosemide drip 20 mL per hour. Continue monitoring blood sugar a.c. and nightly. Tylenol 650 mg q.4 to 6 hours as needed for pain or fever. Zofran 4 mg IV q.6 hours as needed for vomiting. Terazosin 2 mg at bedtime. Tradjenta 50 mg daily. Carvedilol 12.5 mg twice a day. Lipitor 20 mg daily. Aspirin 81 mg daily. Tessalon 100 mg 3 times a day. Zaroxolyn 2.5 mg daily. Glimepiride 4 mg before breakfast. Guaifenesin-dextromethorphan 2 teaspoons twice a day as needed. Lisinopril 10 mg daily. Job#: [id number] EV
--- NOTE | 2018-06-13 19:15 | NUR ---
Patient visited in room during nursing rounds. Patient alert and oriented x3. Patient resting on bedside recliner and ambulatory in room prn. Pt receiving Lasix drip (20ml/hr) continuous. Patient denies any discomfort or pain. Call holland within reach.
[2018-06-13] MEDS: TERAZOSIN HCL 1 MG CAP PO SCH (20:44)
[2018-06-13] MEDS: ATORVASTATIN 20 MG TAB PO SCH (20:44)
--- NOTE | 2018-06-13 23:47 | Progress Note ---
DATE: June 13, 2018 PULMONARY MEDICINE PROGRESS NOTE SUBJECTIVE: Ms. Acosta was seen and examined at bedside. She continues on Lasix at 20 mg per hour now. She is having good urine output. Slightly decreased edema but still a lot of edema present. She ate less than 50% of her meals. She did have bowel movement. REVIEW OF SYSTEMS: No bleeding, no headaches. OBJECTIVE VITAL SIGNS: Afebrile. Vital signs noted per electronic record. GENERAL: No acute distress, alert and calm. HEENT: Normocephalic, atraumatic. NECK: Supple. Throat midline. LUNGS: Bilateral air entry, few rhonchi. CARDIOVASCULAR: S1 and S2. No murmurs, rubs, or gallops. ABDOMEN: Soft, nontender. EXTREMITIES: No clubbing. No cyanosis. There is still the 2+ to 3+ edema on the legs. INTEGUMENT: No rash. No purpura. In's 1.2 L, out 3 L. LABS: Potassium 3.6, BUN 36, creatinine 2.2. White count 10, hematocrit 43, and platelets 229,000. IMPRESSIONS 1. Pulmonary edema. 2. Pneumonia. 3. Severe fluid overload. 4. Low functional endurance. 5. Hypoxemia, slowly improving. 6. Itclc-vw-tekdtbr kidney failure, slowly improving. PLAN: Continue intermittent chest x-rays. Continue Lasix drip. Follow up electrolytes closely. Continue mobilizing the patient. Okay to transfer to long-term acute care facility due to complicated status. Progress has been slow only so far due to kidney condition. Job#: [id number]
[2018-06-14] VITALS (7 sets, daily range): BP systolic 93–144; BP diastolic 55–69
[2018-06-14] MEDS: ALBUTEROL/IPRATROPIUM 3 ML NEB NEB SCH ×6 (03:30→23:20)
[2018-06-14 05:41] LABS: ANION GAP 18.5 mmol/L (8-16); CALCIUM 9.1 mg/dL (8.4-10.2); CREATININE, SERUM 2.41 mg/dL (0.57-1.11); POTASSIUM 3.5 mmol/L (3.5-5.1)
[2018-06-14] MEDS: BUDESONIDE 0.5MG/2 ML NEB INH SCH ×2 (07:00→19:00)
[2018-06-14] MEDS: INSULIN LISPRO 100 UNIT/1 ML 3ML VIAL SQ SCH ×4 (07:30→21:10)
[2018-06-14] MEDS: ONDANSETRON HCL INJ 2MG/ML 2ML 2 MG/ML VIAL IV PRN (07:50)
[2018-06-14] MEDS: GLIMEPIRIDE 2 MG TAB PO SCH (07:50)
[2018-06-14] MEDS: METOLAZONE 5 MG TAB PO SCH (09:00)
[2018-06-14] MEDS: LISINOPRIL 10 MG TAB PO SCH (09:00)
[2018-06-14] MEDS: CARVEDILOL 12.5 MG TAB PO SCH ×2 (09:00→16:57)
[2018-06-14] MEDS: BENZONATATE 100 MG CAP PO SCH ×3 (09:21→21:00)
[2018-06-14] MEDS: GUAIFENESIN 600MG/DEXTROMETHORPHAN 30MG TABSR PO SCH ×2 (09:21→16:57)
[2018-06-14] MEDS: SITAGLIPTIN 100 MG TAB PO SCH (09:21)
[2018-06-14] MEDS: ASPIRIN 81 MG ENTERIC COATED PO SCH (09:24)
[2018-06-14] MEDS: FUROSEMIDE INJ 250 MG in SODIUM CHLORIDE 0.9% 250ML 225 ML IV SCH (12:21)
--- NOTE | 2018-06-14 13:14 | NUR ---
Nutrition Screen Note (Follow up) RD Recommendation for Physician: -Continue ADA diet as ordered -Pt refused diet education on 06/14. Plan of Care: RD following, monitoring for tolerance and adequacy Nutrition reason for involvement: RN consult no reason stated, follow up Primary Diagnose(s): 1. Thxnd-vl-rzxwkom diastolic congestive heart failure. 2. Asthma exacerbation. 3. Hyponatremia. 4. Obesity. 5. Bilateral pneumonia. 6. Uncontrolled diabetes mellitus, type 2 with chronic renal insufficiency. 7. Pwong-kv-fojwhfy renal failure, stage 3. PMH: CHF, DM, HTN, CAD, renal insufficiency, CAD Ht: 64in Wt: 290.44lb BMI: 49.9kg/m2 IBW: 120lb RD Assessment: 06/14: Pt seen for RN consult. Pt reported improvement in her appetite with >50% meal intake and drank 1 bottle of Glucerna every day. No GI complains noted. LBM 06/13. No chewing or swallowing difficulty reported. Currently on Lasix drip with strict I&O. No fluids restriction ordered. Pt was seeing RD at [facility] for diet management. Will continue to monitor and follow. 06/08: Pt seen for follow up. Pt reports eating well until yesterday, states "just don't have an appetite today." Pt denies any GI distress, noted significant BLE edema at time of visit. Pt continues on IV abx and diuretics as well as DM meds. Labs reviewed, POC BG elevated today. Current diet remains appropriate, encouraged compliance. Chart reviewed. Will monitor and continue to follow. (06/01) Chart reviewed. Labs and meds reviewed. 63yo morbidly obese female, who is admitted for SOB. Pt is currently on IV abx, IV lasix, and neb tx. 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 Pt denied chewing/swallowing problems and nausea/vomiting. RN recorded 75% meal intake since admission. LBM 06/01. Pt is not interested in diet education at this time. Will continue to monitor and follow. Current Diet: ADA diet Malnutrition Evaluation (06/01/18) The patient does not meet criteria for a specified degree of malnutrition at this time. Will re-evaluate at follow-up as appropriate. Diet Education Needs Assessment: Diet education indicated, pt is not interested. Nutrition Care Level: low Signed: Tanya Lindquist, MS,RD,LD
--- NOTE | 2018-06-14 16:33 | Progress Note ---
DATE: June 14, 2018 PULMONARY MEDICINE PROGRESS NOTE SUBJECTIVE: Mrs. Acosta was seen and examined at bedside. Minimally decreased swelling today. Still with significant 3+ edema. Patient on Lasix drip at 20 mg per hour. Patient's blood pressure now going to low normal range. 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 REVIEW OF SYSTEMS: No bleeding. No headaches. OBJECTIVE VITALS: Afebrile. Vital signs noted per electronic record. GENERAL: No acute distress. Alert and calm. A little bit more color today. HEENT: Normocephalic and atraumatic. NECK: Supple. Throat midline. LUNGS: Bilateral air entry. Few rhonchi heard. CARDIOVASCULAR: S1 and S2. No murmurs, rubs or gallops. ABDOMEN: Soft and nontender. Obese. EXTREMITIES: No clubbing. No cyanosis. There is 3+ edema to the legs. INTEGUMENT: No rash. No purpura. LABS: Potassium 2.5, BUN 39, creatinine 2.4. White count 10, hematocrit 44 and platelets 229,000. IMPRESSION AND PLAN 1. Pulmonary edema. 2. Severe pneumonia. 3. Hypoxemia, slowly improving. 4. Jmedy-fs-fmozihq kidney failure. 5. Severe leg edema. Continue Lasix drip for now. Follow blood pressure. Follow up creatinine. Based on these markers, we can consider if we need to start pulling back on Lasix. Patient should continue to try to offset her legs to gravity. Patient is recommended to continue to try to move around and try to get some of her strength back. Okay for LTAC transfer today. Job#: [id number] LESTER
--- NOTE | 2018-06-14 18:34 | Progress Note ---
DATE: June 14, 2018 INTERNAL MEDICINE PROGRESS NOTE SUBJECTIVE: Patient is doing well. PHYSICAL EXAM: HEART: Shows regular rhythm. Normal S1 and S2 sounds. LUNGS: Clear bilaterally. ABDOMEN: Soft. EXTREMITIES: Show 1+ bilateral pedal edema. On the BMP: Sodium 140, potassium 3.5, chloride 92, CO2 33, BUN 39, creatinine 2.41, glucose 122. On the CBC: White blood count 9.50, hemoglobin 13.3, hematocrit 43.5, platelet count 229,000. AST 20, ALT 18, total bilirubin 2.0, alkaline phosphatase 52. FINAL IMPRESSION: 1. Anasarca. 1. Acute on chronic diastolic congestive heart failure. 2. Pneumonia. 3. Episode of hypotension. 4. Diabetes mellitus type 2 with chronic renal insufficiency. 5. Hypercholesterolemia. 6. Morbid obesity. 7. exacerbation. PLAN OF TREATMENT: Continue albuterol and Atrovent q.4 hours as needed for shortness of breath. Pulmicort 2 inhalations twice a day. Continue Lasix drip at 20 mL q.12 hours. Continue with Januvia 50 mg daily. Carvedilol 12.5 mg twice a day. Continue IV push as needed for hypoglycemia. Continue Lipitor 20 mg daily. Aspirin 81 mg daily. Tessalon 100 mg 3 times a day. Zaroxolyn 2.5 mg twice daily. Glimepiride 4 mg daily. Lisinopril 10 mg daily. Continue monitoring blood sugar a.c. and nightly. Terazosin 2 mg at bedtime. We are going to repeat a BMP tomorrow. Tentative discharge this week. Job#: [id number] EV
[2018-06-14] MEDS ORDERED: POTASSIUM CHLORIDE 20 MEQ TAB CR PO NR (18:45)
[2018-06-14] MEDS: TERAZOSIN HCL 1 MG CAP PO SCH (21:09)
[2018-06-14] MEDS: ATORVASTATIN 20 MG TAB PO SCH (21:09)
--- NOTE | 2018-06-14 21:53 | NUR ---
Spoke with Dr. Chambers to inform pt requesting for medication to help "calm her nerves." ordered Buspar 5mg PO Q8hr prn for anxiety.
[2018-06-14] MEDS: BUSPIRONE HCL 5 MG TAB PO PRN (22:28)
[2018-06-15] VITALS (8 sets, daily range): BP systolic 116–142; BP diastolic 58–67
[2018-06-15] MEDS: ALBUTEROL/IPRATROPIUM 3 ML NEB NEB SCH ×6 (03:15→23:00)
[2018-06-15] MEDS: FUROSEMIDE INJ 250 MG in SODIUM CHLORIDE 0.9% 250ML 225 ML IV SCH ×2 (03:16→17:40)
[2018-06-15 05:46] LABS: ANION GAP 13.5 mmol/L (8-16); CALCIUM 8.5 mg/dL (8.4-10.2); CREATININE, SERUM 2.76 mg/dL (0.57-1.11); POTASSIUM 3.5 mmol/L (3.5-5.1)
[2018-06-15] MEDS: BUDESONIDE 0.5MG/2 ML NEB INH SCH ×2 (07:00→21:36)
[2018-06-15] MEDS: BENZONATATE 100 MG CAP PO SCH ×3 (09:00→21:54)
[2018-06-15] MEDS: ASPIRIN 81 MG ENTERIC COATED PO SCH (09:00)
[2018-06-15] MEDS: LISINOPRIL 10 MG TAB PO SCH (09:00)
[2018-06-15] MEDS: GLIMEPIRIDE 2 MG TAB PO SCH (09:00)
[2018-06-15] MEDS: GUAIFENESIN 600MG/DEXTROMETHORPHAN 30MG TABSR PO SCH ×2 (09:00→16:56)
[2018-06-15] MEDS: SITAGLIPTIN 100 MG TAB PO SCH (09:00)
[2018-06-15] MEDS: CARVEDILOL 12.5 MG TAB PO SCH ×2 (09:00→16:56)
[2018-06-15] MEDS: METOLAZONE 5 MG TAB PO SCH (09:00)
[2018-06-15] MEDS: INSULIN LISPRO 100 UNIT/1 ML 3ML VIAL SQ SCH ×5 (09:00→21:00)
[2018-06-15] MEDS ORDERED: POTASSIUM CHLORIDE 10MEQ EA PO ONE (09:45)
[2018-06-15] MEDS ORDERED: FUROSEMIDE INJ 10 MG/ML 4 ML VIAL IV ONE (09:45)
--- NOTE | 2018-06-15 11:37 | NUR ---
Cady Terrell with [facility]: Received denial for LTAC. Per Dr. Chambers, he plans to discharge pt home in a few days.
--- NOTE | 2018-06-15 14:43 | Progress Note ---
DATE: June 15, 2018 PULMONARY MEDICINE PROGRESS NOTE SUBJECTIVE: Ms. Acosta was seen and examined at bedside. She continues to have steady progress. Patient with decreased leg edema. She remains on Lasix 20 mg per hour. She is eating half her meals. She had a bowel movement today. She has a little bit more energy. REVIEW OF SYSTEMS: No headaches. No bleeding. OBJECTIVE VITALS: Afebrile. Vital signs noted per electronic record. GENERAL: In no acute distress. Alert and calm. HEENT: Normocephalic and atraumatic. NECK: Supple. Throat midline. LUNGS: Bilateral air entry. Few rhonchi. CARDIOVASCULAR: S1 and S2. No murmurs, rubs or gallops. ABDOMEN: Soft and nontender. EXTREMITIES: No clubbing. No cyanosis. There is 2-3+ edema. INTEGUMENT: No rash. No purpura. LABS: BUN 45, creatinine 2.8, potassium 3.5. IMPRESSION AND PLAN 1. Pulmonary edema. 2. Pneumonia. 3. Ugkcf-ca-oinmdgl kidney failure. 4. Emergency hypertension. 5. Obesity. Continue offloading the legs. Continue Lasix drip. Follow up kidney function and potassium. Patient still in guarded condition. Still needs to build up endurance with all this fluid. Will repeat a chest x-ray soon. Job#: [id number] LESTER
--- NOTE | 2018-06-15 18:21 | NUR ---
DR. REGINA MIJARES.
[2018-06-15] MEDS: TERAZOSIN HCL 1 MG CAP PO SCH (21:54)
[2018-06-15] MEDS: ATORVASTATIN 20 MG TAB PO SCH (21:54)
[2018-06-15] MEDS: BUSPIRONE HCL 5 MG TAB PO PRN (22:04)
--- NOTE | 2018-06-16 00:30 | Discharge Summary ---
ADDENDUM TO DISCHARGE SUMMARY The torsemide has been discontinued. Also the ibuprofen has been discontinued. She is going to continue hydralazine 50 mg 3 times a day, glimepiride 4 mg daily, Coreg 12.5 mg twice a day, Lipitor 20 mg daily and at home. We are not going to continue the lisinopril, the BuSpar, or terazosin because the patient was already taking some equivalent medications at home. FRANCISCO TAPIA MD Job#: [id number] CF
[2018-06-16] MEDS: ALBUTEROL/IPRATROPIUM 3 ML NEB NEB SCH ×3 (03:00→11:00)
[2018-06-16 06:20] VITALS: BP 117/60
[2018-06-16] MEDS ORDERED: LASIX40 MG PO (06:49)
[2018-06-16] MEDS: FUROSEMIDE INJ 250 MG in SODIUM CHLORIDE 0.9% 250ML 225 ML IV SCH ×3 (06:51)
[2018-06-16] MEDS: BUDESONIDE 0.5MG/2 ML NEB INH SCH (07:00)
[2018-06-16] MEDS: INSULIN LISPRO 100 UNIT/1 ML 3ML VIAL SQ SCH (07:30)
[2018-06-16 07:59] VITALS: BP 120/66
[2018-06-16] MEDS: CARVEDILOL 12.5 MG TAB PO SCH (08:35)
[2018-06-16] MEDS: SITAGLIPTIN 100 MG TAB PO SCH (08:35)
[2018-06-16] MEDS: BENZONATATE 100 MG CAP PO SCH (08:35)
[2018-06-16] MEDS: LISINOPRIL 10 MG TAB PO SCH (08:35)
[2018-06-16] MEDS: GUAIFENESIN 600MG/DEXTROMETHORPHAN 30MG TABSR PO SCH (08:35)
[2018-06-16] MEDS: GLIMEPIRIDE 2 MG TAB PO SCH (08:35)
[2018-06-16] MEDS: ASPIRIN 81 MG ENTERIC COATED PO SCH (08:35)
--- NOTE | 2018-06-16 08:41 | Discharge Summary ---
Patient is 63-year-old female with past medical history positive for asthma, history of congestive heart failure, hypertension, diabetes, came to the hospital complaining of shortness of breath. She was found to have bilateral pneumonia. She finished a course of IV antibiotic. She also was found to have anasarca and congestive heart failure. Started on Lasix drip. Apparently sometime when she was in the bathroom or walking, she was disconnected from the Lasix drip, so it was not as effective as we thought it was going to be, also the diet. Apparently, she was getting also food with high content of salt from outside the hospital. At any rate, I talked with Dr. Street, plant protection officer on the case, and we are going to send the patient home with Lasix 80 mg twice a day, potassium supplementation, and she is going to follow up with Dr. Street as an outpatient for nephrology to monitor the BUN, creatinine, and electrolytes. I told the patient that the diet is still important, especially low-sodium, low-potassium diet due to the risk of hyperkalemia and worsening anasarca in this patient. So she is educated about the diet and the consequences of that if the potassium goes to a very high level, she could have a cardiac arrest and of course. PHYSICAL EXAMINATION: Vital Signs: Blood pressure 135/65, temperature 97.4, heart rate 60 per minute, respiratory rate 19 per minute, oxygen saturation 94%. Heart: Shows regular rhythm, normal S1 and S2 sounds. Lungs: Clear bilaterally. Extremities: Show 1+ bilateral pedal edema. On the BMP, sodium 138, potassium 3.5, chloride 92, CO2 36, BUN 45, creatinine 2.76, glucose 129. On the CBC, white blood count 9.50, hemoglobin 13.3, hematocrit 43.5, platelet count 229,000. AST 20, ALT 18, total bilirubin 2.0, alkaline phosphatase of 52. FINAL IMPRESSION: 1. Pneumonia. 2. Dwxdf-df-unjhlrt diastolic congestive heart failure. 3. Xewnf-bi-wvhptlg renal failure, stage 4. 4. Anasarca. 5. Obesity. 6. Diabetes mellitus type 2 with chronic renal insufficiency. 7. History of asthma, status post asthma exacerbation. PLAN OF TREATMENT: She is going to be discharged on Breo 1 inhalation daily, ProAir 2 puffs every 4 to 6 hours as needed for shortness of breath, Lasix 80 mg twice a day, potassium chloride 20 mEq daily. She is going to also be on carvedilol 12.5 mg twice a day, Lipitor 20 mg daily, lisinopril 10 mg daily, glimepiride 4 mg daily, terazosin 2 mg at bedtime, BuSpar 5 mg q.8h. as needed for anxiety. She is going to follow up with her primary care physician and Dr. Street as an outpatient. The diet is going to be 1800 calories ADA diet, renal diet. As I said that, I told the patient it is very important to follow up with her primary care physician and the plant protection officer, also especially to monitor the potassium and the BUN and creatinine. Tentative discharge for tomorrow. FRANCISCO TAPIA MD Job#: [id number]
[2018-06-16 09:18] VITALS: BP 120/66
[2018-06-16 12:00] VITALS: BP 105/58
--- NOTE | 2018-06-16 12:23 | NUR ---
Discharge instructions given to the patient along with new RX's. Discussed purpose and side effects of new Rx's. Pt verbalized understanding. IV removed with tip intact. Discussed how to prevent CHF exacerbation, including diet tips, low salt diet, daily weights at same time, and calling the doctor if any weight gained. Pt verbalized understanding.
--- NOTE | 2018-06-16 13:01 | NUR ---
PT ESCORTED TO PERSONAL VEHICLE VIA WHEELCHAIR IN STABLE CONDITION WITH EVEN AND UNLABORED RESPIRATIONS WITH ALL PERSONAL BELONGINGS.
--- NOTE | 2018-06-16 13:05 | Discharge Summary ---
ADDENDUM Patient is a 63-year-old female with past medical history positive for CHF, diabetes, hypertension, chronic renal insufficiency. Patient was found to have anasarca and she finished a course of IV antibiotics for pneumonia. She was started on IV Lasix drip. The Lasix was switched to p.o. Zaroxolyn was discontinued because of worsening renal insufficiency. Patient was educated about the renal diet and diabetic and low-salt diet. Patient is going home today with instructions to follow up with her primary care physician and Dr. Street, shuttlecock feather trimmer, as an outpatient. FINAL IMPRESSIONS 1. Acute on chronic diastolic congestive heart failure. 2. Acute on chronic renal failure stage 4. 3. Diabetes mellitus type 2 with chronic renal insufficiency. 4. Pneumonia. 5. Obesity. 6. Possible sleep apnea. 7. Asthma exacerbation. PLAN OF TREATMENT: The patient is going to follow up with Dr. Street, shuttlecock feather trimmer, as an outpatient, her primary care physician in a week. The medication will be the same I dictated in my discharge summary yesterday. The vital signs today: blood pressure 120/66, temperature 37 degrees, heart rate 66 per minute, respiratory rate 18 per minute, oxygen saturation 94%. FRANCISCO TAPIA MD Job#: [id number] TA
--- NOTE | 2018-06-16 14:24 | Progress Note ---
DATE: June 16, 2018 PULMONARY MEDICINE PROGRESS NOTE SUBJECTIVE: Mrs. Acosta was seen and examined at bedside. Lasix drip ongoing. However, in discussion, creatinine continues to go up. Decision was made to stop Lasix. Patient eating about half her meals. Slowly, more endurance. REVIEW OF SYSTEMS: No headaches. No rash. OBJECTIVE VITALS: Afebrile. Vital signs noted per electronic record. GENERAL: No acute distress. Alert and calm. HEENT: Normocephalic and atraumatic. NECK: Supple. Throat midline. LUNGS: Bilateral air entry. Decreased breath sounds, . CARDIOVASCULAR: S1 and S2. No murmurs, rubs or gallops. ABDOMEN: Soft and nontender. Obese. EXTREMITIES: No clubbing. No cyanosis. There is 3+ edema. INTEGUMENT: No rash. No purpura. LABS: Potassium 2.5, BUN 45, creatinine 2.8. White count 4.5, hematocrit 44. IMPRESSION AND PLAN 1. Pulmonary edema. 2. Pneumonia. 3. Iugvu-ob-wmvbryb kidney failure. 4. Weakness. 5. , resolving. Discontinue Lasix drip. Convert to intermittent Lasix. Follow up electrolytes. Continue current compression, but for now it is very difficult for the patient to tolerate compression to her legs. Offload to gravity is possible. Continue to follow blood pressure and control it. Continue bronchodilators and nebulized steroids. Job#: [id number] NH
== END 2018-06-16 12:15 | disposition home or self-care (01) | DRG 291 ==
LOC: ER 12:12 → ERHOLD 17:17 → MED/SURG2 19:37
PROVIDERS: ADMIT Internal Medicine; ATTEND Internal Medicine
DX: I13.0 Hypertensive heart and chronic kidney disease with heart failure and stage 1 through stage 4 chronic kidney disease, or unspecified chronic kidney disease (principal); J18.9 Pneumonia, unspecified organism; I50.33 Acute on chronic diastolic (congestive) heart failure; J44.1 Chronic obstructive pulmonary disease with (acute) exacerbation; Z68.42 Body mass index [BMI] 45.0-49.9, adult; N17.9 Acute kidney failure, unspecified; N18.4 Chronic kidney disease, stage 4 (severe); E87.1 Hypo-osmolality and hyponatremia; E78.5 Hyperlipidemia, unspecified; I25.10 Atherosclerotic heart disease of native coronary artery without angina pectoris; E11.22 Type 2 diabetes mellitus with diabetic chronic kidney disease; N18.9 Chronic kidney disease, unspecified; G47.33 Obstructive sleep apnea (adult) (pediatric); E78.00 Pure hypercholesterolemia, unspecified; R09.02 Hypoxemia; E66.01 Morbid (severe) obesity due to excess calories
CPT/HCPCS: 36415; 71045; 76770; 80048; 80053; 80061; 81001; 82150; 82550; 82553; 82570; 82948; 83518; 83605; 83690; 83735; 83880; 84145; 84156; 84443; 84484; 85025; 87040; 87070; 87400; 93005; 93306; 93970; 94640; 96365; 99285; J0692; J1100; J1650; J1940; J1956; J2405; J2710; J2920; J2930; J7030; J7050